=== PATIENT | female | born 1935 | race Caucasian/White ===

== ENCOUNTER 2024-06-25 11:41 | Inpatient (IN) | payer MEDICARE, OTHER, SELFPAY ==
[2024-06-25] VITALS (23 sets, daily range): BP systolic 124–216; BP diastolic 54–115
[2024-06-25 04:33] LABS: % Basophils 0.4 % (0-2); % Eosinophils 2.1 % (0-6); % Immature Granulocytes 1.4 % (0-0.5); % Lymphocytes 12.8 % (20.5-51.1); % Monocytes 6.9 % (1.7-9.3); % Neutrophils 76.4 % (42.2-75.2); Absolute Eosinophils 0.2 10^3/uL (0-0.7); Absolute Immature Granulocytes 0.1 10^3/uL (0-0.05); Absolute Lymphocytes 1.3 10^3/uL (1.2-3.4); Absolute Monocytes 0.7 10^3/uL (0.1-0.6); Absolute Neutrophils 7.5 10^3/uL (1.4-6.5); Hematocrit 35.3 % (37.0-47.0); Hemoglobin 11.5 g/dL (12.0-16.0); Mean Corp Hgb Conc. 32.6 g/dL (33.0-37.0); Mean Corpuscular Hgb 29.4 pg (27.0-31.0); Mean Corpuscular Volume 90.3 fL (81.0-99.0); Mean Platelet Volume 8.9 fL (7.4-10.4); Nucleated Red Blood Cells % 0.2 %; Platelet Count 326 10^3/uL (130-400); Red Blood Cell Count 3.91 10^6/uL (4.20-5.40); Red Cell Dist. Width 15.9 % (11.5-14.5); White Blood Cell Count 9.8 10^3/uL (4.8-10.8)
[2024-06-25 04:58] LABS: COVID-19 Antigen Negative (Negative)
[2024-06-25 05:16] LABS: ALT (SGPT) 18 U/L (0-35); Albumin 3.8 g/dl (3.5-5.0); Blood Urea Nitrogen 25 mg/dl (7-17); Calcium 9.2 mg/dl (8.4-10.2); Carbon Dioxide 28 mmol/L (22-30); Chloride 96 mmol/L (98-107); Glucose 216 mg/dl (70-99); Sodium 135 mmol/L (135-145); Total Protein 6.8 g/dl (6.3-8.2); eGFR > 60.00
[2024-06-25 05:27] LABS: AST (SGOT) 30 U/L (14-36); Potassium 4.5 mmol/L (3.5-5.1)
[2024-06-25] MEDS: VAPONEFRIN NEBS 0.5 ML INH (05:42)
[2024-06-25 07:13] LABS: Alkaline Phosphatase 118 U/L (38-126)
--- NOTE | 2024-06-25 07:38 | ED.GENMED ---
History of Present Illness
<Mauro Almonte PA-C - Last Filed: 06/25/24 10:37>
General
Chief Complaint: Breathing Problem
Source: patient and family
Time Seen by Provider: 06/25/24 07:10
History of Present Illness
History of Present Illness:
89-year-old Swedish-speaking female with a past medical history of recent hospitalization for right shoulder dislocation/proximal humerus fracture, subsequently developed supposes respiratory failure requiring intubation for 2 days, extubated and
remained in hospital for an additional 3 days, recently disposition to [facility] rehab facility who developed gradually worsening shortness of breath since Tuesday presenting back to the emergency department here due to the shortness of breath.
Patient has a noted chronic history for hypertension, hyperlipidemia, previous LA, insulin-dependent diabetes, previous cancer history and previous pulmonary emboli (daughter unsure of current medications or if anticoagulated). Patient notes that
she has had a harder time swallowing, tolerating p.o. and has gotten worsening shortness of breath and left-sided throat pain since Tuesday. No medications provided. EMS noted stridor upon their arrival and patient was also reportedly hypoxic.
Normally does not require any oxygen. Daughter who is translating in the room states that she was very confused as to why patient needed to be intubated in the first place at the other facility and states that patient had a workup for seizures but
this was reportedly negative. There have not been any reported fevers, GI related illness or any other concerns.
Past History
<Mauro Almonte PA-C - Last Filed: 06/25/24 10:37>
Past History
ED Past Medical History: CAD, Cancer, GERD, HTN, Hypercholesterolemia, IDDM, LA, Hypothyroidism and Other (Pulmonary embolism)
ED Past Surgical History: None
Social History
Tobacco: Former smoker
Alcohol: None
Drug: None
Living: with family
Review of Systems
<Mauro Almonte PA-C - Last Filed: 06/25/24 10:37>
Review of Systems
All Other Systems: ROS reviewed and negative except as documented in HPI and ROS
Phy Exam
<Mauro Almonte PA-C - Last Filed: 06/25/24 10:37>
Physical Exam
Physical Exam:
GENERAL: Alert , in no apparent distress
HEAD: Normocephalic atraumatic
EYE: Clear conjunctiva
NECK: Supple, no significant adenopathy, No ecchymosis, no obvious edema
ENT: o/p clr, dry mucous membranes very faint thrush within the posterior oropharynx, no tonsillar edema or exudates, no lymphadenopathy, inspiratory stridor noted
CARDIAC: Regular rate and rhythm .
LUNGS: Rhonchorous lung sounds more pronounced within the left posterior lung escalona, no tachypnea, no accessory muscle use
ABDOMEN: Soft, without focal tenderness, no r/g, no cvat
NEUROLOGICAL: Alert and oriented
SKIN: Warm and dry, skin intact.
MUSCULOSKELETAL: No edema, well perfused.
PSYCH: Normal and appropriate interaction.
Scores
<Mauro Almonte PA-C - Last Filed: 06/25/24 10:37>
Heart Failure Risk
Heart Failure Risk Score: Not Applicable
Heart Score for Chest Pain Patients
STEMI patient?: Not applicable
Withdrawal Assessment of Alcohol
Withdrawal Assessment Completed?: Not applicable
Sepsis
<Mauro Almotne PA-C - Last Filed: 06/25/24 10:37>
Sepsis Screening
Sepsis Assessment: Sepsis Ruled Out
Sepsis Screen
Sepsis Screen: Sepsis Ruled Out
Date: 06/25/24
Time: 10:37
<Jori Hobbs DO - Last Filed: 06/25/24 14:15>
Sepsis Screen
Sepsis Screen: Sepsis Ruled Out
Date: 06/25/24
Time: 14:14
Course
<Mauro Almonte PA-C - Last Filed: 06/25/24 10:37>
Orders/Labs/Results
Orders:
Orders
06/25/24 04:08
CR Chest Single View Urgent
Reason For Exam: suspected infection
06/25/24 04:11
COVID-19 Antigen Urgent
Source: Nasal Swab
Complete Blood Count/With Diff Urgent
Comprehensive Metabolic Panel Urgent
Influenza A+B Rapid Molecular Urgent
[facility] Source: Nasal Swab
Specimen Description:
06/25/24 05:41
Racepinephrine [Vaponefrin Nebs] 0.5 ml .ROUTE .STK-MED ONE
06/25/24 05:42
Racepinephrine [Vaponefrin Nebs] 0.5 ml INH R NOW STA
06/25/24 06:23
Tramadol HCl [Ultram] 50 mg PO NOW STA
06/25/24 07:35
Dexamethasone Sod Phosphate [Decadron] 10 mg IV NOW STA
LevoFLOXacin 750 MG/150 ML [Levaquin] 750 mg in 150 ml IV NOW
Piperacillin/Tazo 4.5 Gram [Zosyn] 4.5 gram in 100 ml IV NOW
06/25/24 07:37
Electrocardiogram (*1) Urgent
Reason for Study: Shortness of Breath
EKG- Treatment ONCE
06/25/24 08:38
Lorazepam [Ativan] 1 mg .ROUTE .STK-MED ONE
06/25/24 08:45
Racepinephrine [Vaponefrin Nebs] 0.5 ml .ROUTE .STK-MED ONE
06/25/24 09:15
NT-proBNP Urgent
Troponin I Urgent
06/25/24 10:01
Vancomycin [Vancocin] 2,000 mg 0.9% Sodium Chloride 500 ml [Nss] 500 ml IV NOW
06/25/24 10:11
Morphine Sulfate 2 mg IV NOW STA
06/25/24 10:44
Admit/Transfer Patient As Directed
Co-Sign Provider:
Level of Care: Inpatient admission
Assign to:: ICU
Physician / Group: Hospitalist
Diagnosis: Stridor
Reason for Hospitalization: .
Expected length of stay greater than two midnights?: Yes
ELOS- Estimated Length of Stay in days: 3
I certify the patient meets the requirements for IP care: Yes
PRN Pain Medication Management As Directed
May give lesser potent ordered pain med per pt: Yes
preference::
Protocol:: Medication orders for pain may be administered in a
manner that supports deferring to patient preference
when the pt is:
- Requesting an ordered lesser potent pain medication.
Least to most potent pain medications are defined
as: acetaminophen < NSAID < tramadol < opioids
(morphine, oxycodone, hydromorphone).
- Requesting a lesser dose of the same medication IF
ORDERED.
- Requesting a less intrusive route of administration
if both routes are prescribed by the provider (PO <
IV).
06/25/24 10:50
CT Chest W/o Iv Contrast Stat
Comment:
Reason For Exam: respirtaory distress
CT Neck W/o Iv Contrast Stat
Comment:
Reason For Exam: stridor
06/25/24 11:39
Diphenhydramine [Benadryl] 12.5 mg IV NOW STA
06/25/24 12:25
Consult ENT [ENT CONSULT] Routine
Consulting Provider: Felipe Padilla
Was physician already notified: Yes
Reason for Consult: Stridor
Consult Infectious Disease [INFECTIOUS DISEASE CONSULT] Routine
Consulting Provider: Narda Thorne
Was physician already notified: Yes
Reason for consult: Acute Laryngitis
Consult Pulmonary [PULMONARY CONSULT] Routine
Consulting Provider: Harley Milian
Was physician already notified: Yes
Reason for consult: Respiratory distress
06/25/24 20:00
Apixaban [Eliquis] 10 mg PO BID
Abnormal Lab Results
06/25/24
04:11
RBC 3.91 L 10^6/uL
(4.20-5.40)
Hgb 11.5 L g/dL
(12.0-16.0)
Hct 35.3 L %
(37.0-47.0)
MCHC 32.6 L g/dL
(33.0-37.0)
RDW 15.9 H %
(11.5-14.5)
Abs Immat Gran (auto) 0.1 H 10^3/uL
(0-0.05)
Absolute Neuts (auto) 7.5 H 10^3/uL
(1.4-6.5)
Absolute Monos (auto) 0.7 H 10^3/uL
(0.1-0.6)
Immature Gran % 1.4 H %
(0-0.5)
Neutrophils % 76.4 H %
(42.2-75.2)
Lymphocytes % 12.8 L %
(20.5-51.1)
Chloride 96 L mmol/L
(98-107)
BUN 25 H mg/dl
(7-17)
Glucose 216 H mg/dl
(70-99)
Total Bilirubin 2.0 H mg/dl
(0.2-1.3)
06/25/24 04:11
06/25/24 04:11
Vital Signs
Initial and Last Documented VS:
Initial Vital Signs
Temp Pulse Resp BP Pulse Ox
97.7 F 71 20 180/73 95
06/25/24 03:47 06/25/24 03:47 06/25/24 03:47 06/25/24 03:47 06/25/24 03:47
Last Documented Vital Signs
Temp Pulse Resp BP Pulse Ox
97.7 F 86 20 189/83 99
06/25/24 03:47 06/25/24 13:30 06/25/24 13:30 06/25/24 13:25 06/25/24 13:30
Exchange Teller consulted with Physician
Exchange Teller consulted with physician?: Yes
Name of Physician Consulted: Faby
<Jori Hobbs, DO - Last Filed: 06/25/24 14:15>
Orders/Labs/Results
Orders:
Orders
06/25/24 04:08
CR Chest Single View Urgent
Reason For Exam: suspected infection
06/25/24 04:11
COVID-19 Antigen Urgent
Source: Nasal Swab
Complete Blood Count/With Diff Urgent
Comprehensive Metabolic Panel Urgent
Influenza A+B Rapid Molecular Urgent
[facility] Source: Nasal Swab
Specimen Description:
06/25/24 05:41
Racepinephrine [Vaponefrin Nebs] 0.5 ml .ROUTE .STK-MED ONE
06/25/24 05:42
Racepinephrine [Vaponefrin Nebs] 0.5 ml INH R NOW STA
06/25/24 06:23
Tramadol HCl [Ultram] 50 mg PO NOW STA
06/25/24 07:35
Dexamethasone Sod Phosphate [Decadron] 10 mg IV NOW STA
LevoFLOXacin 750 MG/150 ML [Levaquin] 750 mg in 150 ml IV NOW
Piperacillin/Tazo 4.5 Gram [Zosyn] 4.5 gram in 100 ml IV NOW
06/25/24 07:37
Electrocardiogram (*1) Urgent
Reason for Study: Shortness of Breath
EKG- Treatment ONCE
06/25/24 08:38
Lorazepam [Ativan] 1 mg .ROUTE .STK-MED ONE
06/25/24 08:45
Racepinephrine [Vaponefrin Nebs] 0.5 ml .ROUTE .STK-MED ONE
06/25/24 09:15
NT-proBNP Urgent
Troponin I Urgent
06/25/24 10:01
Vancomycin [Vancocin] 2,000 mg 0.9% Sodium Chloride 500 ml [Nss] 500 ml IV NOW
06/25/24 10:11
Morphine Sulfate 2 mg IV NOW STA
06/25/24 10:44
Admit/Transfer Patient As Directed
Co-Sign Provider:
Level of Care: Inpatient admission
Assign to:: ICU
Physician / Group: Hospitalist
Diagnosis: Stridor
Reason for Hospitalization: .
Expected length of stay greater than two midnights?: Yes
ELOS- Estimated Length of Stay in days: 3
I certify the patient meets the requirements for IP care: Yes
PRN Pain Medication Management As Directed
May give lesser potent ordered pain med per pt: Yes
preference::
Protocol:: Medication orders for pain may be administered in a
manner that supports deferring to patient preference
when the pt is:
- Requesting an ordered lesser potent pain medication.
Least to most potent pain medications are defined
as: acetaminophen < NSAID < tramadol < opioids
(morphine, oxycodone, hydromorphone).
- Requesting a lesser dose of the same medication IF
ORDERED.
- Requesting a less intrusive route of administration
if both routes are prescribed by the provider (PO <
IV).
06/25/24 10:50
CT Chest W/o Iv Contrast Stat
Comment:
Reason For Exam: respirtaory distress
CT Neck W/o Iv Contrast Stat
Comment:
Reason For Exam: stridor
06/25/24 11:39
Diphenhydramine [Benadryl] 12.5 mg IV NOW STA
06/25/24 12:25
Consult ENT [ENT CONSULT] Routine
Consulting Provider: Felipe Padilla
Was physician already notified: Yes
Reason for Consult: Stridor
Consult Infectious Disease [INFECTIOUS DISEASE CONSULT] Routine
Consulting Provider: Narda Thorne
Was physician already notified: Yes
Reason for consult: Acute Laryngitis
Consult Pulmonary [PULMONARY CONSULT] Routine
Consulting Provider: Harley Milian
Was physician already notified: Yes
Reason for consult: Respiratory distress
06/25/24 20:00
Apixaban [Eliquis] 10 mg PO BID
Abnormal Lab Results
06/25/24
04:11
RBC 3.91 L 10^6/uL
(4.20-5.40)
Hgb 11.5 L g/dL
(12.0-16.0)
Hct 35.3 L %
(37.0-47.0)
MCHC 32.6 L g/dL
(33.0-37.0)
RDW 15.9 H %
(11.5-14.5)
Abs Immat Gran (auto) 0.1 H 10^3/uL
(0-0.05)
Absolute Neuts (auto) 7.5 H 10^3/uL
(1.4-6.5)
Absolute Monos (auto) 0.7 H 10^3/uL
(0.1-0.6)
Immature Gran % 1.4 H %
(0-0.5)
Neutrophils % 76.4 H %
(42.2-75.2)
Lymphocytes % 12.8 L %
(20.5-51.1)
Chloride 96 L mmol/L
(98-107)
BUN 25 H mg/dl
(7-17)
Glucose 216 H mg/dl
(70-99)
Total Bilirubin 2.0 H mg/dl
(0.2-1.3)
06/25/24 04:11
06/25/24 04:11
Vital Signs
Initial and Last Documented VS:
Initial Vital Signs
Temp Pulse Resp BP Pulse Ox
97.7 F 71 20 180/73 95
06/25/24 03:47 06/25/24 03:47 06/25/24 03:47 06/25/24 03:47 06/25/24 03:47
Last Documented Vital Signs
Temp Pulse Resp BP Pulse Ox
97.7 F 86 20 189/83 99
06/25/24 03:47 06/25/24 13:30 06/25/24 13:30 06/25/24 13:25 06/25/24 13:30
<Mauro Almonte PA-C - Last Filed: 06/25/24 10:37>
MDM/Problems Addressed
Differential Diagnosis Includes:
epiglottitis, vocal cord paralysis, pneumonia, aspiration, PE, CHF, less concern for LA or vasculopath related complication
MDM/Problems Addressed:
89-year-old female presenting to the emergency department for evaluation of respiratory difficulties over the last 3 days, had a complicated hospitalization 2 weeks ago with patient ending up intubated however unclear etiology for reasoning for the
intubation. Reportedly self extubated, hoarse voice since that time. Daughter notes patient has been on a pur�ed diet but having some difficulty with this due to the pain/difficulty swallowing. Stridor noted on exam, treated with racemic epi with
some improvement but stridor still noted. Will treat with 10 of Decadron. Labs and x-ray imaging ordered. X-ray does show possible infiltrate versus effusion within the left lower lung. Will cover for hospital-acquired pneumonia given recent
hospitalization/intubation. Troponin and BNP added onto workup. Patient currently on 3 L nasal cannula due to her hypoxia. She will certainly require readmission here for further workup/evaluation
Chronic conditions affecting care: CAD
<Mauro Almonte PA-C - Last Filed: 06/25/24 10:37>
*Radiology
Radiology exam reviewed: preliminary read by ED provider (Left lower lung effusion)
*Pulse Oximetry
Patient hypoxic: yes
*Oxygen Furnace Operator Interpretation
Rate: normal
Rhythm: sinus
*Critical Care Note
Total Time (30-74mins, 75-104mins- exclusive of procedures): Not Applicable
Data Reviewed
Review of Other/Old Records Reveals: Records
<Mauro Almonte PA-C - Last Filed: 06/25/24 10:37>
Patient Management
Discussion with other providers: Hospitalist
Escalation/DeEscalation of care consider admission/obs:
Hospitalist team accepts patient for continued evaluation and treatment of respiratory distress, suspected complications from recent intubation and pneumonia.
ED Attending Note
<Mauro Almonte PA-C - Last Filed: 06/25/24 10:37>
-
Portions of this chart may have been created with voice recognition software.� Occasional wrong word or��sound alike� substitutions may have occurred due to the inherent limitations of voice recognition software.
<Jori Hobbs DO - Last Filed: 06/25/24 14:15>
ED Attending Note
Patient seen and examined by attending physician: Yes
ED Attending Note:
I reviewed and agree with history treatment plan by Manny Almonte. My exam revealed a 89-year-old female in intermittent respiratory distress, improved with oxygen and repositioning as well as suctioning. Concern for pneumonia, will admit to
hospitalist for further evaluation.
Discharge Plan
Departure
Patient Disposition: Admit
Date of Disposition: 06/25/24
Time of Disposition: 09:18
Presentation/result/management discussed w/ accepting MD/DO: Hospitalist
Discharge Problem:
Acute respiratory distress, Pneumonia
Interventions
Interventions:
*Risk Screen - Suicide Last Done: 06/25/24 04:00
*General Assessment Last Done: 06/25/24 04:00
*Neglect/Abuse Screening Last Done: 06/25/24 04:00
ED- Fall Risk Assessment Last Done: 06/25/24 09:00
*ED COVID-19 Vaccine History Last Done: 06/25/24 13:34
ED- Cardiac Assessment Last Done: 06/25/24 09:00
ED- Pulmonary Assessment Last Done: 06/25/24 09:00
[2024-06-25] MEDS: DECADRON 10 MG IV (09:05)
[2024-06-25] MEDS: ZOSYN 100 IV (09:25)
--- NOTE | 2024-06-25 09:50 | HPS.HSE ---
Family Physician
-
Family Physician: Son Tovar MD
Chief Complaint
-
Shortness of breath for a few days duration
History of Present Illness
89 [facility] experienced shortness of breath for a few days. History taken from the family as patient speaks very limited Slovak. Patient started to have sore throat few days
ago. She was given supportive care but did not improve. EMT personnel's were called and was given inhalation therapy in the ER she was given. Intravenous dexamethasone, IV antibiotics, Racepinephrine inhalation. Patient continued to have sore
throat and not breathing well. Chest radiography did not show definitive infiltrate. No leukocytosis. No fever.
History of recent hospitalization at [facility] for shoulder dislocation/proximal humerus fracture. Reportedly, she was intubated for 2 days. Per daughter felt that her mother was having a panic attack but was told she had
respiratory distress. No history of asthma, tobacco use, sleep apnea. Patient lived independently at home before the incidence.
Medical History
Past Medical History
Past Medical History: Reports Other (Hypertension, hyperlipidemia, diabetes, gout, history of pulmonary embolism, hypothyroidism)
Past Surgical History: Reports Other (No recent major surgery )
Social History
Tobacco: Non-smoker
Alcohol: None
Drug: None
Personal: Single
Living: Alone
Employment: Not Employed
Family History
Family History: Not pertinent
Allergies / Home Medications
Allergies reflects when Allergies were last updated in [employer].
Home Medications with original date entered in [employer]
Allergy/Medication List:
Allergies
Allergy/AdvReac Type Severity Reaction Status Date / Time
clopidogrel [From Plavix] Allergy Unknown Unknown Verified 06/25/24 04:06
Iodinated Contrast Media Allergy Unknown Unknown Verified 06/25/24 04:06
metronidazole Allergy Unknown Unknown Verified 06/25/24 04:06
morphine Allergy itching Verified 06/25/24 11:46
and
reddness,
slight
shortness
of breath
Home Medications
acetaminophen 325 mg tablet (Tylenol) 650 mg PO Q6H PRN temp>100.4, mild pain 06/25/24
albuterol sulfate 2.5 mg/3 mL (0.083 %) solution for nebulization 2.5 mg inhalation Q6H wheezing 06/25/24
albuterol sulfate 2.5 mg/3 mL (0.083 %) solution for nebulization 2.5 mg inhalation QID 06/25/24
apixaban 5 mg tablet (Eliquis) See Rx Instructions .Route .COMPLEX pulm embolism 06/25/24
atorvastatin 80 mg tablet 80 mg PO HS 06/25/24
bisacodyl 10 mg rectal suppository 10 mg VT DAILY PRN constipation, if MOM ineffective 06/25/24
buspirone 5 mg tablet 5 mg PO DAILY 06/25/24
cholecalciferol (vitamin D3) 125 mcg (5,000 unit) capsule 125 mcg PO DAILY 06/25/24
clotrimazole-betamethasone 1 %-0.05 % topical cream 1 applic topical BID affected area 06/25/24
dexlansoprazole 30 mg capsule,biphase delayed release 60 mg PO DAILY 06/25/24
insulin glargine 100 unit/mL (3 mL) subcutaneous pen (Lantus Solostar U-100 Insulin) 20 unit SC HS 06/25/24
insulin lispro 100 unit/mL subcutaneous pen 0 - 10 unit SC .SLIDING SCALE AC 06/25/24
insulin lispro 100 unit/mL subcutaneous pen 3 unit SC AC 06/25/24
levetiracetam 250 mg tablet 250 mg PO BID seizure prevention 06/25/24
levothyroxine 88 mcg tablet 88 mcg PO DAILY 06/25/24
magnesium hydroxide 400 mg/5 mL oral suspension (Milk of Magnesia) 2,400 mg PO HSPRN PRN no BM x 3 days 06/25/24
meclizine 12.5 mg tablet 12.5 mg PO DAILYPRN PRN dizzyness 06/25/24
melatonin 5 mg tablet 5 mg PO HS 06/25/24
metoprolol tartrate 50 mg tablet 50 mg PO BID 06/25/24
montelukast 10 mg tablet 10 mg PO DAILY 06/25/24
polyethylene glycol 3350 17 gram oral powder packet (Miralax) 17 g PO DAILY Constipation 06/25/24
sennosides 8.6 mg tablet (Senokot) 17.2 mg PO HS 06/25/24
sodium chloride 0.65 % nasal spray aerosol 2 spray intranasal Q2H PRN congestion 06/25/24
ticagrelor 90 mg tablet (Brilinta) 90 mg PO BID Blood Clot Prevention/Tx 06/25/24
tramadol 50 mg tablet 50 mg PO Q6HPRN PRN severe pain 06/25/24
Review of Systems
-
History Source: Patient
A 12 point ROS was completed and negative except as noted: Yes
Constitutional: Denies Fever
EENT: Reports Sore Throat
Respiratory: Reports Trouble Breathing; Denies Cough
Cardiac: Denies Chest Pain
Abdomen/GI: Denies Abdominal Pain
Musculoskeletal: Reports Joint Pain (Right shoulder)
Skin: Denies Itching
Neurological: Denies Numbness
Hematologic/Lymphatic: Denies Bruising
Psych: Denies Dementia
Physical Exam
Vital Signs
Vital Signs
Temp Pulse Resp BP Pulse Ox
97.7 F 89 30 172/60 96
06/25/24 03:47 06/25/24 08:00 06/25/24 08:00 06/25/24 07:00 06/25/24 08:00
Physical Exam
General: Respiratory Distress (Stridor heard ) and Obese
HEENT: Moist mucous membranes and Atraumatic
Respiratory: Decreased Breath Sounds
Cardiac: S1/S2
GI: Soft and Non Tender
Rectal: No Maroon Stools
Genito-urinary: Clear Urine
Musculoskeletal: No Cyanosis
Skin: No Jaundice
Neuro: Oriented and Other (She follows simple commands)
Psych: Anxious; No Agitated
Laboratory Results
-
06/25/24 04:11
06/25/24 04:11
Laboratory Results
Total Bilirubin 2.0 mg/dl (0.2-1.3) H 06/25/24 04:11
AST 30 U/L (14-36) 06/25/24 04:11
ALT 18 U/L (0-35) 06/25/24 04:11
Alkaline Phosphatase 118 U/L (38-126) 06/25/24 04:11
Impression/Plan
-
89 years old female presented with sore throat and respiratory distress
#Sore throat/suspect acute laryngitis/stridor/respiratory distress
Currently patient is not hypoxic. But she seems uncomfortable from sore throat. She described as trouble breathing at times. She is not tachypneic or using accessory muscle at the moment.
Admit the patient to ICU
Recent respiratory distress that needed intubation in another facility and extubated after 2 days. Currently on room air.
Negative COVID and influenza screen, cannot rule out other viral infection
Chest radiography did not show definitive infiltrate.
Order CT scan of the chest and neck without contrast, patient is allergic to contrast
Continue with IV steroid, low-dose Benadryl
Discussed with ICU doctor.
Consult ENT doctor.
Empiric antibiotics.
Consult ID.
# history of diabetes.
Expect hyperglycemia with a steroid and stress related to acute illness
Do insulin sliding scale and long-acting insulin.
#History of essential hypertension
Continue medications from home, will verify with pharmacy.
# History of hypothyroidism,
#Recent right shoulder injury/humeral fracture. Will do x-ray
# Patient seems to be on Keppra, will continue and verify medical history.
# History of pulmonary embolism. will continue Eliquis for now
# Hyperlipidemia, no changes intended
#Obesity,
#DVT prophylaxis with GI prophylaxis
# Try to get records from her primary care doctor and recent hospitalization
Total time spent to see the patient, examine the patient, review data and lab results, discuss treatment plan with patient, ER doctor and nursing staff around 75 minutes
[2024-06-25 09:51] LABS: NT-proBNP 4230 pg/ml; Troponin I 0.024 ng/ml
[2024-06-25] MEDS: MORPHINE SULFATE IV (10:27)
--- NOTE | 2024-06-25 10:34 | PHANOTE ---
Med History Collection
Patient was hospitalized at [facility] and then transferred to [facility]. Many changes to Medication List from prior hospitalization to SNF. SNF list is up to date on Med List.
Prior medications include:
allopurinol 100 mg 2 PO daily
colchicine 0.6 mg po daily
Creon 24,000 unit po meals
Diltiazem ER 240 mg po daily
Dozazolin 4 mg po daily
gabapentin 100mg po 3xdaily
levocetirizine 5 mg po daily
levothyroxin 100mcg po daily ([address] [facility])
mag ox 400 mg po 3x/daily
metformin ER 500 mg po bid
metoprolol succ ER 100 mg po dailu (metop tartrate 50 [address] [facility])
mirtazapine 15 mg po daily
nitroglycerin TD 0.1 mg/hr patch daily
pantoprazole 40 mg pO daily (dexilant 60 [address] [facility])
triamterene /HCTZ 37.5/25 mg PO daily
valsartan 80 mg PO BID
zolpidem 10 mg po HS
[2024-06-25] MEDS: LEVAQUIN 150 IV (11:08)
[2024-06-25] MEDS: MORPHINE SULFATE 2 MG IV (11:14)
[2024-06-25] MEDS: BENADRYL 12.5 MG IV (11:43)
--- NOTE | 2024-06-25 12:57 | W.CON.OTO ---
Otolaryngology Consult
Chief Complaint
Stridor and shortness of breath
History of Present Illness
Patient is an 89-year-old female recently treated at [facility] for a fractured right humerus. During this workup the patient may have had a seizure versus a panic attack. She was intubated in the ER at [facility] and left
intubated for several days while they stabilized her. Approximately 9 days ago the patient self extubated at [facility]. She was not reintubated after that point in time. She was, however, transferred to a rehab facility last .
On Tuesday she had some labored breathing noted by her daughter. This worsened on Tuesday. This morning she was taken to [facility] for some stridor and difficulty breathing. In the emergency room she was noted to have decreased oxygen
saturations. She was treated with Decadron and racemic epi and improved. Currently she is breathing comfortably with noticeable improvement following the medication. She has had some hoarseness. The patient has also had some mild dysphagia.
While at [facility] she did have a workup and was placed on a modified pur�ed diet. This has some thick phlegm that she seems to be unable to clear. The daughter does not think the patient has been sick recently with any upper
respiratory illness. The patient does not speak Hungarian and the interview was conducted via translation provided by the daughter.
Medical History
Past Medical History: CAD, Cancer, GERD, HTN, Hypercholesterolemia, IDDM, [place] and Other (PE, Right Humerus Fx)
Past Surgical History: Orthopedic (Right humerus ORIF)
Patient Allergies:
Allergies
Allergy/AdvReac Type Severity Reaction Status Date / Time
clopidogrel [From Plavix] Allergy Unknown Unknown Verified 06/25/24 04:06
Iodinated Contrast Media Allergy Unknown Unknown Verified 06/25/24 04:06
metronidazole Allergy Unknown Unknown Verified 06/25/24 04:06
morphine Allergy itching Verified 06/25/24 11:46
and
reddness,
slight
shortness
of breath
Home Medications / Current Medications:
�Medication �Instructions �Recorded
acetaminophen 325 mg tablet 650 mg PO Q6H PRN temp>100.4, mild 06/25/24
(Tylenol) pain
albuterol sulfate 2.5 mg/3 mL 2.5 mg inhalation Q6H wheezing 06/25/24
(0.083 %) solution for nebulization
albuterol sulfate 2.5 mg/3 mL 2.5 mg inhalation QID 06/25/24
(0.083 %) solution for nebulization
apixaban 5 mg tablet (Eliquis) See Rx Instructions .Route 06/25/24
.COMPLEX pulm embolism
atorvastatin 80 mg tablet 80 mg PO HS 06/25/24
bisacodyl 10 mg rectal suppository [address] DAILY PRN constipation, 06/25/24
if MOM ineffective
buspirone 5 mg tablet 5 mg PO DAILY 06/25/24
cholecalciferol (vitamin D3) 125 125 mcg PO DAILY 06/25/24
mcg (5,000 unit) capsule
clotrimazole-betamethasone 1 1 applic topical BID affected area 06/25/24
%-0.05 % topical cream
dexlansoprazole 30 mg 60 mg PO DAILY 06/25/24
capsule,biphase delayed release
insulin glargine 100 unit/mL (3 20 unit SC HS 06/25/24
mL) subcutaneous pen (Lantus
Solostar U-100 Insulin)
insulin lispro 100 unit/mL 0 - 10 unit SC .SLIDING SCALE AC 06/25/24
subcutaneous pen
insulin lispro 100 unit/mL 3 unit SC AC 06/25/24
subcutaneous pen
levetiracetam 250 mg tablet 250 mg PO BID seizure prevention 06/25/24
levothyroxine 88 mcg tablet 88 mcg PO DAILY 06/25/24
magnesium hydroxide 400 mg/5 mL 2,400 mg PO HSPRN PRN no BM x 3 06/25/24
oral suspension (Milk of Magnesia) days
meclizine 12.5 mg tablet 12.5 mg PO DAILYPRN PRN dizzyness 06/25/24
melatonin 5 mg tablet 5 mg PO HS 06/25/24
metoprolol tartrate 50 mg tablet 50 mg PO BID 06/25/24
montelukast 10 mg tablet 10 mg PO DAILY 06/25/24
polyethylene glycol 3350 17 gram 17 g PO DAILY Constipation 06/25/24
oral powder packet (Miralax)
sennosides 8.6 mg tablet (Senokot) 17.2 mg PO HS 06/25/24
sodium chloride 0.65 % nasal spray 2 spray intranasal Q2H PRN 06/25/24
aerosol congestion
ticagrelor 90 mg tablet (Brilinta) 90 mg PO BID Blood Clot 06/25/24
Prevention/Tx
tramadol 50 mg tablet 50 mg PO Q6HPRN PRN severe pain 06/25/24
Physical Exam
Vitals / Labs:
Vital Signs
Temp 97.7 F 06/25/24 03:47
Temp route: Oral 06/25/24 03:47
Pulse 89 06/25/24 08:00
Resp Rate 30 06/25/24 08:00
Blood pressure 172/60 06/25/24 07:00
MAP (cuff-Brenda Monitor) 92 06/25/24 07:00
SaO2 96 06/25/24 08:00
Oxygen Mode of Delivery Room air 06/25/24 04:00
Can the patient verbally communicate their pain? Yes 06/25/24 11:14
Pain scale ratin 06/25/24 11:14
Actual Weight 113.398 kg 06/25/24 04:07
Lab Results
06/25/24 04:11
06/25/24 04:11
Exam:
GENERAL: Alert , in no apparent distress
HEAD: Normocephalic atraumatic
EYE: Clear conjunctiva
NECK: Supple, no significant adenopathy, No ecchymosis, no obvious edema
ENT: dry mucous membranes with moderate thick secretions present, no significant erythema or edema noted in oropharynx, no masses present
Flexible fiberoptic laryngoscopy: Flexible scope performed at the bedside without any difficulty. Scope easily passed through the nasal cavity on the left side nasopharynx clear. Oropharynx unremarkable. Moderate thick secretions present in the
larynx, posteriorly on left side. Mucosa within normal limits diffusely throughout the upper aerodigestive tract. Vallecula, epiglottis, aryepiglottic folds, arytenoids, postcricoid area clear. True and false vocal folds unremarkable without any
mass or neoplasm present. Subglottis difficult to visualize but appeared grossly clear.
Assessment / Plan
89-year-old female with acute onset of stridor and respiratory distress.
-Patient self extubated 8 days ago at [facility].
-There is no evidence of upper airway trauma from the self extubation.
-No significant evidence of upper airway edema or mass present.
-The airway is patent on fiberoptic examination at the bedside.
-The patient does have thick secretions that she may be having difficulty tolerating.
-Recommend facemask with humidification to help loosen the secretions and alleviate the patient's dry mucous membranes.
-Continue Decadron as per medical team, can continue racemic epi as needed.
-Pulmonary input appreciated, possible pneumonia, starting IV antibiotics.
Data Reviewed
Radiology: Report Reviewed by me (CXR)
CT Scan: Image Personally Visualized and interpreted (I did review the CT of neck. The airway appears to be relatively clear without any masses or significant edema noted. The remainder of the neck was within normal limits.)
[2024-06-25] MEDS: VANCOCIN 540 MG IV (13:41)
--- NOTE | 2024-06-25 14:25 | CON.INTV ---
Addendum entered and electronically signed by Harley Milian MD 06/25/24 18:02:
During my evaluation in the emergency room I did discuss with the daughter potential intubation.
Daughter stated that she would not want intubation or CPR for her mother.
I will confirm this again and update CODE STATUS.
Addendum entered and electronically signed by Harley Milian MD 06/25/24 18:01:
See below
Original Note:
Consultation
Consultation Request
Date/Time Consultation Requested: 06/25/2024,12:25
Date/Time Consultation Performed: 06/25/2024,15:00
Requesting Provider: Lesley Pérez
Performing Provider: Harley Milian
Reason for Consultation: Respiratory distress
Medical History
-
Chief Complaint: Shortness of breath
History of Present Illness:
Patient is an 89-year-old, morbidly obese, primarily Turkish-speaking female with her grandson Bk present on the bedside. Patient was not able to provide history so primarily the history was obtained from her grandson due to language barrier. As
per the grandson, it all started about 1-1/2-week ago, she was in her usual state of health,She fell down and broke her right shoulder, she remained admitted [facility] where they were not agreeable to perform any surgical correction as they
believed that the patient was a high risk case. At 1 point she required intubation and remained intubated for about 2 days. As per the grandson she was not comfortable with the ventilator and her body was consistently fighting the mechanical
ventilation. She was eventually discharged based on stable vital signs and the family had to find themselves and [facility]. She was in [facility] rehab facility and started to feel short of breath for the last few days. She was brought to
the [facility] emergency department when the conservative measures did not help.
In the ED, patient has been hypertensive and her blood pressure has been ranging between 170-200. She denies any chest pain, any palpitations, or apprehension. EKG done in the emergency room revealed normal sinus rhythm, prolonged QT of 514
complete right block and minimal voltage criteria for left ventricular hypertrophy.
Chest x-ray done to evaluate for any acute infiltrates or fluid collections which were negative.
Patient does complain of pain in her right shoulder, and there was some swelling noted in neck and upper chest, CT chest report pending.
Past Medical History
Past Medical History: GERD, HTN, Hypercholesterolemia, Hypothyroidism, IDDM and Other (Gout, history of pulmonary embolism, seizure disorder, anxiety)
Past Surgical History: None
Social History
Tobacco: Former Smoker (Quit about 40 years ago)
Alcohol: Occasional
Drug: None
Personal: Single
Living: Alone
Employment: Not Employed
Family History
Family History: Reviewed & Not Pertinent
Allergies / Home Medications
Allergies
Allergy/AdvReac Type Severity Reaction Status Date / Time
clopidogrel [From Plavix] Allergy Unknown Unknown Verified 06/25/24 04:06
Iodinated Contrast Media Allergy Unknown Unknown Verified 06/25/24 04:06
metronidazole Allergy Unknown Unknown Verified 06/25/24 04:06
morphine Allergy itching Verified 06/25/24 11:46
and
reddness,
slight
shortness
of breath
Home Medications
�Medication �Instructions �Recorded �Confirmed �Last Taken �Type
acetaminophen 325 mg tablet 650 mg PO Q6H PRN temp>100.4, mild 06/25/24 06/25/24 Unknown History
(Tylenol) pain
albuterol sulfate 2.5 mg/3 mL 2.5 mg inhalation Q6H wheezing 06/25/24 06/25/24 Unknown History
(0.083 %) solution for nebulization
albuterol sulfate 2.5 mg/3 mL 2.5 mg inhalation QID 06/25/24 06/25/24 Unknown History
(0.083 %) solution for nebulization
apixaban 5 mg tablet (Eliquis) See Rx Instructions .Route 06/25/24 06/25/24 Unknown History
.COMPLEX pulm embolism
atorvastatin 80 mg tablet 80 mg PO HS 06/25/24 06/25/24 Unknown History
bisacodyl 10 mg rectal suppository 10 mg PA DAILY PRN constipation, 06/25/24 06/25/24 Unknown History
if MOM ineffective
buspirone 5 mg tablet 5 mg PO DAILY 06/25/24 06/25/24 Unknown History
cholecalciferol (vitamin D3) 125 125 mcg PO DAILY 06/25/24 06/25/24 Unknown History
mcg (5,000 unit) capsule
clotrimazole-betamethasone 1 1 applic topical BID affected area 06/25/24 06/25/24 Unknown History
%-0.05 % topical cream
dexlansoprazole 30 mg 60 mg PO DAILY 06/25/24 06/25/24 Unknown History
capsule,biphase delayed release
insulin glargine 100 unit/mL (3 20 unit SC HS 06/25/24 06/25/24 Unknown History
mL) subcutaneous pen (Lantus
Solostar U-100 Insulin)
insulin lispro 100 unit/mL 0 - 10 unit SC .SLIDING SCALE AC 06/25/24 06/25/24 Unknown History
subcutaneous pen
insulin lispro 100 unit/mL 3 unit SC AC 06/25/24 06/25/24 Unknown History
subcutaneous pen
levetiracetam 250 mg tablet 250 mg PO BID seizure prevention 06/25/24 06/25/24 Unknown History
levothyroxine 88 mcg tablet 88 mcg PO DAILY 06/25/24 06/25/24 Unknown History
magnesium hydroxide 400 mg/5 mL 2,400 mg PO HSPRN PRN no BM x 3 06/25/24 06/25/24 Unknown History
oral suspension (Milk of Magnesia) days
meclizine 12.5 mg tablet 12.5 mg PO DAILYPRN PRN dizzyness 06/25/24 06/25/24 Unknown History
melatonin 5 mg tablet 5 mg PO HS 06/25/24 06/25/24 Unknown History
metoprolol tartrate 50 mg tablet 50 mg PO BID 06/25/24 06/25/24 Unknown History
montelukast 10 mg tablet 10 mg PO DAILY 06/25/24 06/25/24 Unknown History
polyethylene glycol 3350 17 gram 17 g PO DAILY Constipation 06/25/24 06/25/24 Unknown History
oral powder packet (Miralax)
sennosides 8.6 mg tablet (Senokot) 17.2 mg PO HS 06/25/24 06/25/24 Unknown History
sodium chloride 0.65 % nasal spray 2 spray intranasal Q2H PRN 06/25/24 06/25/24 Unknown History
aerosol congestion
ticagrelor 90 mg tablet (Brilinta) 90 mg PO BID Blood Clot 06/25/24 06/25/24 Unknown History
Prevention/Tx
tramadol 50 mg tablet 50 mg PO Q6HPRN PRN severe pain 06/25/24 06/25/24 Unknown History
Review of Systems
-
All other systems: Negative unless noted
Vitals / Labs / Diagnostic Testing
Vital Signs
Temp Pulse Resp BP Pulse Ox
97.7 F 86 20 189/83 99
06/25/24 03:47 06/25/24 13:30 06/25/24 13:30 06/25/24 13:25 06/25/24 13:30
Lab Data
06/25/24 04:11
06/25/24 04:11
Microbiology
06/25/24 04:11 Nasal Swab Influenza Types A & B (NICOLAS) - Final
Negative for Influenza A & B, NAAT
Negative results must be combined with clinical observations
and patient history.
Nucleic Acid Amplification test (NAAT)performed on the
[employer] platform.
Diagnostic Testing:
Physical Exam
-
HEENT: Normocephalic, Anicteric and Other (Currently breathing on 2 L of oxygen)
Cardiovascular: S1/S2, Regular Rhythm and Other (No murmurs or rubs)
Respiratory: Other (Bilateral coarse rhonchi and wheezes)
GI: Soft, Distended (Abdominal obesity) and Normal Bowel Sounds
Neurology: Awake, Oriented and No Motor Deficits
Skin: Warm and Dry
General: Respiratory Distress (Breathing on 2 L of oxygen) and Other (Bruising on right shoulder)
Assessment
-
Impression
Patient is an 89-year-old female, morbidly obese, primarily Turkish-speaking, grandson Bk present on the bedside, primarily history obtained from the grandson. She was recently admitted to [facility] for her right shoulder injury, she
required intubation for respiratory decompensation as per the grandson. She was discharged to [facility] rehab where the patient started to feel short of breath for the last few days and was brought to the ER. Based on the workup in ER, her
EKG had prolonged QT interval and normal sinus rhythm. Chest x-ray was negative for any infiltrates or fluid collections, but did show a fracture on her right shoulder. CT chest was done for neck and chest swelling, report pending.
Assessment
# Hypertensive urgency
# Shortness of breath likely secondary to PE/subcutaneous emphysema/acute viral infection/complications of ventilator
# Morbid obesity
# Diabetes mellitus
# Essential hypertension
# Hyperlipidemia
# Seizure disorder?
# History of pulmonary embolism?
Plan
# Shortness of breath likely secondary to PE/subcutaneous emphysema/acute viral infection/complications of ventilator
Patient sitting comfortably, not using accessory muscles for respiration, not hypoxic, needing oxygen at 2 L/min
CT chest report pending, need to evaluate the stridor through ENT evaluation
Negative for COVID and influenza screen but could be a viral illness
Patient receiving symptomatic management in ER
Received a dose of Zosyn, Levaquin and vancomycin
WBC count normal and patient is afebrile
Follow-up blood cultures
# Morbid obesity
Affects all aspects of healthcare
# Diabetes mellitus
Started high resistance insulin sliding scale along with insulin glargine 25 units at bedtime
Continue to monitor blood sugar levels which are expected to rise as patient would be receiving high-dose steroids
Check HbA1c
# Hypertensive urgency
Patient has systolic blood pressure ranging from 170-200
Patient takes 50 mg metoprolol twice daily at home, continue home medications and give medications for breakthrough hypertension
Optimize blood pressure control,
# Hyperlipidemia
Continue home dose of atorvastatin as able
# Seizure disorder?
Continue home dose of [id number] mg twice daily
# History of pulmonary embolism?
Continue Eliquis 10 mg twice daily
Try to obtain records to further get information about the PE
CODE STATUS full code at this time
DVT prophylaxis Eliquis
[2024-06-25 15:40] LABS: Glucose - Point of Care 306 mg/dl (70-99)
[2024-06-25] MEDS: PROCARDIA XL (EXTENDED RELEASE) 30 MG PO ×2 (16:22→16:26)
[2024-06-25] MEDS: APRESOLINE 10 MG IV (16:27)
--- NOTE | 2024-06-25 16:27 | PHA.VAN.IN ---
Assessment
- Assessment
Renal Function: Unknown baseline
Concomitant Antimicrobials: piperacillin/tazobactam
Plan
- Plan
Initial / Loading Dose: vanc 2000mg administered @ 1341
Maintenance Regimen: dosing by level
Monitoring: random level 06/26 0600
MRSA Screen: Ordered per protocol
Pharmacokinetics Vancomycin I
- -
Patient Age: 89
Patient Sex: Female
Vancomycin Day #: 1
Indication: Pulmonary/Respiratory
Requesting Provider: Dr. Pérez
Pertinent Antimicrobial Allergies:
metronidazole - unknown
Height / Weight:
Actual Weight 113.398 kg
- Vital Signs / Lab Results
Temp Pulse Resp BP Pulse Ox
97.7 F 88 19 205/67 97
06/25/24 03:47 06/25/24 15:00 06/25/24 15:00 06/25/24 15:00 06/25/24 15:00
Lab Results - Hematology
06/25/24
04:11
WBC 9.8
Lab Results - Chemistry
06/25/24
04:11
BUN 25 H
Creatinine 0.9
Albumin 3.8
Microbiology Results
06/25/24 04:11 Influenza Types A & B (NICOLAS) - Final
Nasal Swab Negative for Influenza A & B, NAAT
Negative results must be combined with clinical observations
and patient history.
Nucleic Acid Amplification test (NAAT)performed on the
[employer] NOW platform.
[2024-06-25] MEDS: ULTRAM 50 MG PO (16:40)
--- NOTE | 2024-06-25 18:15 | W.PN.UPDATE ---
Update Note
Progress Note Update
I updated her daughter for second time. Pt clinically better.
I confirmed DNR status with her and will update chart
[2024-06-25] MEDS: NSS 1000 IV (18:26)
--- NOTE | 2024-06-25 18:28 | CON.ID ---
Consultation
-
Date/Time Consultation Requested: June 25, 2024 1225
Date/Time Consultation Performed: June 1830
Requesting Provider: Dr. Kati éPrez
Performing Provider: Dr. Selina Saul
Reason for Consultation: Laryngitis
Chief Complaint / Past History
Chief Complaint
Unable to breathe
History of Present Illness
History obtained from grandson at bedside. She is an 89-year-old female with diabetes, hypertension, anxiety who was recently hospitalized at [facility] about 1-1/2-week ago when she slipped on water and fell. She sustained right
shoulder/fracture. Per grandson, patient has chronic back pain often exacerbated by when she lays down flat; she tends to shake when she has back pain. While in the ER at the outside hospital, patient was shaking thought to be due to seizure.
She was intubated for about 2 days. Patient then self extubated. Since then, she had shortness of breath//respiratory distress. Her vitals were normal per grandson. About 2 days ago she was discharged to [facility] rehab. While at rehab her
respiratory distress got worse again. She had shortness of breath. EMS was called and she received steroid, racemic epinephrine enroute to the ER today. No fever. White count normal. Chest x-ray without pneumonia. She was examined by ENT
without findings of trauma; secretions noted. Chest and neck CT showed some soft tissue prominence within the laryngeal and hypopharyngeal soft tissues of the neck which may be inflammatory/infectious. Patient is feeling better today. She is not
as short of breath. She has mild cough unable to produce sputum. No chills or sweats. No sinus congestion. No headaches.
Past History
Additional Past Medical History:
Diabetes mellitus
Hypertension
HLD
Hypothyroidism
Chronic back pain
Gout
Anxiety
Recent right humerus fracture
Allergy History:
clopidogrel [From Plavix] Allergy (Unknown, Verified 06/25/24 04:06)
Unknown
Iodinated Contrast Media Allergy (Unknown, Verified 06/25/24 04:06)
Unknown
metronidazole Allergy (Unknown, Verified 06/25/24 04:06)
Unknown
morphine Allergy (Verified 06/25/24 11:46)
itching and reddness, slight shortness of breath
Medications Reviewed: Yes
Current Antibiotics:
Zosyn
Social History
Tobacco: Former Smoker
Alcohol: None
Drug: None
Living: Alone
Family History
Family History: Not Pertinent
Review of Systems
Review of Systems
General: Negative Fever, Chills or Change in Appetite
HEENT: Negative Sinus Problems or Headache
Respiratory: Dyspnea and Cough
Gasteroenterology: Negative Nausea, Vomiting or Diarrhea
Genital / Urological: Negative Dysuria or Flank Pain
Endocrine: Weakness
Skin / Hair / Nails: Negative Rash
Neurological: Negative Dizziness
All systems: All other systems were reviewed and were negative
Vital Signs
Temp Pulse Resp BP Pulse Ox
97.7 F 110 18 192/77 98
06/25/24 03:47 06/25/24 17:00 06/25/24 17:00 06/25/24 17:00 06/25/24 17:00
Physical Exam
Physical Exam
Constitutional: No Acute Distress, Comfortable and Obese
Eyes: No Conjunctival Hemorrhage and Sclera Anicteric
Pharynx: Benign
Cardiovascular: Regular Rate and S1/S2
Pulmonary: Clear and Other (Mild upper airway wheezing)
Gastrointestinal: Soft, Non Tender, Non Distended and Normal Bowel Sounds
Genito-Urinary: Negative CVA Tenderness
Extremities: Edema (RUE)
Skin: Other (Right shoulder and chest with ecchymosis)
Neurological: AO x 3
Lab / Diagnostic Study Results
06/25/24 04:11
06/25/24 04:11
Abs Immat Gran (auto) 0.1 10^3/uL (0-0.05) H 06/25/24 04:11
Absolute Neuts (auto) 7.5 10^3/uL (1.4-6.5) H 06/25/24 04:11
Absolute Lymphs (auto) 1.3 10^3/uL (1.2-3.4) 06/25/24 04:11
Absolute Monos (auto) 0.7 10^3/uL (0.1-0.6) H 06/25/24 04:11
Absolute Basos (auto) 0.0 10^3/uL (0-0.2) 06/25/24 04:11
Immature Gran % 1.4 % (0-0.5) H 06/25/24 04:11
Neutrophils % 76.4 % (42.2-75.2) H 06/25/24 04:11
Lymphocytes % 12.8 % (20.5-51.1) L 06/25/24 04:11
Monocytes % 6.9 % (1.7-9.3) 06/25/24 04:11
Eosinophils % 2.1 % (0-6) 06/25/24 04:11
Basophils % 0.4 % (0-2) 06/25/24 04:11
Microbiology Results
Micro:
06/25/24 04:11 Influenza Types A & B (NICOLAS) - Final
Nasal Swab Negative for Influenza A & B, NAAT
Negative results must be combined with clinical observations
and patient history.
Nucleic Acid Amplification test (NAAT)performed on the
[employer] NOW platform.
06/25/24 CXR: The lungs appear clear for AP sitting technique. Mild to moderate elevation right hemidiaphragm. Top normal cardiac silhouette size with no evidence for pulmonary edema.
06/25/24 CT chest, Neck CT: Overall limited evaluation without intravenous contrast demonstrating some soft tissue prominence predominantly within the laryngeal and hypopharyngeal soft tissues of the neck which may be on an inflammatory/infectious
basis. Unfortunately, soft tissue mass such as malignancy cannot be excluded. Recommend direct visualization.
Assessment / Plan
# Respiratory distress since self-extubation at outside hospital
- CT neck/chest: limited exam without contrast; there is soft tissue prominence larynx and hypopharynx
- Direct visualization by ENT, unremarkable airway except for some secretions
- Low suspicion for infectious etiology.
Narrow Zosyn to Augmentin 875mg po bid x 5 days.
- ?Allergic reaction. Is Keppra new drug. Per grandson, no hx of seizure.
SOB improved on steroid.
ID will sign off. Call prn.
# Conditions [employer]
Diabetes mellitus
Hypertension
HLD
Hypothyroidism
Chronic back pain
Gout
Anxiety
Recent right humerus fracture
[2024-06-25 18:45] LABS: Glucose - Point of Care 325 mg/dl (70-99)
[2024-06-25] MEDS: NOVOLOG FLEXPEN-HIGH RESISTANCE 10 UNITS SC (18:45)
--- NOTE | 2024-06-25 18:55 | PTCARENOTE ---
Received patient from ED after 5pm. Language line utilized as patient [place] speaking. Patient aaox3, confirms some discomfort to back and right arm r/to fx and dislocation. NSR on the monitor. SOB noted, stridor noted upper respiratory, lungs
clear to left side, right side diminished throughout. O2 sats 96-100% on 2l n/c. BS active x4. Blister noted to right heel, dressing applied. Bk Watts, present. Patient states ok to share any information with her dtr Annel. Oriented patient
and grandson to room, call beltran in reach. Report provided to next shift.
[2024-06-25] MEDS: SODIUM CHLORIDE 3% FOR INHALATION 1 VIAL INH (20:04)
[2024-06-25] MEDS: ELIQUIS 10 MG PO (20:12)
[2024-06-25] MEDS: LOPRESSOR 50 MG PO (20:13)
[2024-06-25] MEDS: AUGMENTIN 875 MG/125 MG 1 TABLET PO (20:13)
[2024-06-25] MEDS: KEPPRA 250 MG PO (20:13)
[2024-06-25 20:27] LABS: Glucose - Point of Care 284 mg/dl (70-99)
[2024-06-25] MEDS: DECADRON 4 MG IV (20:27)
[2024-06-25] MEDS: LANTUS 0.35 UNITS SC (20:53)
[2024-06-25 22:08] LABS: Glucose - Point of Care 266 mg/dl (70-99)
[2024-06-25] MEDS: NOVOLOG FLEXPEN-HIGH RESISTANCE 7 UNITS SC (23:46)
[2024-06-25 23:59] LABS: Glucose - Point of Care 260 mg/dl (70-99)
[2024-06-26] VITALS (18 sets, daily range): BP systolic 126–185; BP diastolic 44–72; PULSE 67; O2SAT 96
[2024-06-26] MEDS: APRESOLINE 5 MG IV (01:04)
[2024-06-26] MEDS: SODIUM CHLORIDE 3% FOR INHALATION 1 VIAL INH ×4 (01:27→20:22)
[2024-06-26 04:14] LABS: Vancomycin Random 16.3 ug/ml
[2024-06-26 04:17] LABS: Hematocrit 28.8 % (37.0-47.0); Hemoglobin 9.4 g/dL (12.0-16.0); Mean Corp Hgb Conc. 32.6 g/dL (33.0-37.0); Mean Corpuscular Volume 88.9 fL (81.0-99.0); Mean Platelet Volume 8.8 fL (7.4-10.4); Platelet Count 294 10^3/uL (130-400); Red Blood Cell Count 3.24 10^6/uL (4.20-5.40); Red Cell Dist. Width 15.9 % (11.5-14.5); White Blood Cell Count 6.2 10^3/uL (4.8-10.8)
[2024-06-26 04:20] LABS: ALT (SGPT) 15 U/L (0-35); AST (SGOT) 23 U/L (14-36); Albumin 3.2 g/dl (3.5-5.0); Alkaline Phosphatase 87 U/L (38-126); Blood Urea Nitrogen 40 mg/dl (7-17); Calcium 8.3 mg/dl (8.4-10.2); Carbon Dioxide 26 mmol/L (22-30); Chloride 99 mmol/L (98-107); Glucose 244 mg/dl (70-99); Potassium 4.7 mmol/L (3.5-5.1); Sodium 134 mmol/L (135-145); Total Bilirubin 1.3 mg/dl (0.2-1.3); Total Protein 5.9 g/dl (6.3-8.2); eGFR 36.41
[2024-06-26] MEDS: SYNTHROID 88 MCG PO (05:30)
[2024-06-26] MEDS: NSS 1000 IV ×2 (05:30→18:44)
[2024-06-26] MEDS: NOVOLOG FLEXPEN-HIGH RESISTANCE 4 UNITS SC ×2 (06:31→11:57)
[2024-06-26 06:44] LABS: Glucose - Point of Care 242 mg/dl (70-99)
--- NOTE | 2024-06-26 07:00 | W.PN.HOSP.TC ---
Addendum entered and electronically signed by Lesley Pérez MD 06/26/24 10:12:
Addendum
Blood work resulted
Hyponatremia, mild
Acute kidney injury. Will add bladder scan protocol. Avoid nephrotoxic. Control of blood pressure.
Essential hypertension, uncontrolled, will add nifedipine
End
Original Note:
Today's Communication/Plan
-
Will order PT/OT
c/w low dose steroid for one more day
Empiric ABx
add pre-meal insulin
Assessment / Plan
Assessment / Plan
Physical Exam
General: not in respiratory Distress, no Stridor heard, Obese
HEENT: Moist mucous membranes and Atraumatic
Respiratory: Decreased Breath Sounds, no wheezes.
Cardiac: S1/S2
GI: Soft and Non Tender
Rectal: No Maroon Stools
Genito-urinary: Clear Urine
Musculoskeletal: No Cyanosis
Skin: No Jaundice
Neuro: Oriented and Other (She follows simple commands)
Psych: Anxious; No Agitated
89 years old female presented with sore throat and respiratory distress
#History of Sore throat
Acute laryngitis
Stridor and respiratory distress seem to resolve, not hypoxic.
Negative COVID and influenza screen, cannot rule out other viral infection. Negative Legionella and Streptococcus antigens.
Chest radiography did not show definitive infiltrate.
CT scan of the chest, no pneumonia. Neck without contrast, no obstructive lesion.
Continue with IV steroid, low-dose Benadryl PRN. 3 % nasal nebulizer Q 6
Empiric antibiotics.
Appreciate ENT, pulmonary and ID help
# history of diabetes.
Expect hyperglycemia with a steroid and stress related to acute illness
Do insulin sliding scale and long-acting insulin. Add pre-meal insulin
#History of essential hypertension
Continue medications from home,
# drop in HGB, suspect dilutional.
# Gout, c/w allopurinol.
# History of hypothyroidism,
#Recent right shoulder injury/humeral fracture. c/w PRN Tramadol & Tylenol.
# Patient seems to be on Keppra. continue for now.
# History of pulmonary embolism. will continue Eliquis for now
# Hyperlipidemia, no changes intended
#Obesity,
#DVT prophylaxis with GI prophylaxis
# Try to get records from her primary care doctor and recent hospitalization
Total time spent to see the patient, examine the patient, review data and lab results, discuss treatment plan with patient and nursing staff around 55 minutes
Anticipated Discharge: 24 - 48 hours
Subjective/Interval History
-
Date of Service: June 26, 2024
she feels better
no stridor over night
Objective Data
-
Labs:
Laboratory Results
06/26/24
03:37
WBC 6.2
Hgb 9.4 L
Hct 28.8 L
Plt Count 294
Sodium 134 L
Potassium 4.7
Chloride 99
Carbon Dioxide 26
BUN 40 H
Creatinine 1.4 H
Glucose 244 H
Calcium 8.3 L
Total Bilirubin 1.3
AST 23
ALT 15
Alkaline Phosphatase 87
Vital Signs:
Vital Signs
Temp Pulse Resp BP Pulse Ox
98.1 F 58 15 155/56 98
06/26/24 03:00 06/26/24 06:00 06/26/24 06:00 06/26/24 06:00 06/26/24 06:00
[2024-06-26] MEDS: VENTOLIN NEBULES 2.5 MG INH ×2 (07:46→13:33)
--- NOTE | 2024-06-26 08:18 | W.PN.PUL3 ---
Today's Communication / Plan
-
Continue with systemic steroids and wean as she clinically improves
prn nebulized bronchodilators
Antibiotics as per ID
Nebulized 3% --> changed from q6hr to TID
Aspiration precautions
Start Mucinex
Acapella if continues to have difficulty with expectoration
Repeat imaging in 6-8 weeks to assure her groundglass opacities resolve
Pulmonary service will continue to follow along
Assessment
-
Assessment: 89-year-old female with a past medical history of GERD, hypertension, hypothyroidism, gout, reported history of PE, and anxiety who presented with shortness of breath. She was found to have stridor with respiratory distress in the ER
and was treated with IV steroids. ENT consulted who performed flexible fiberoptic laryngoscopy showing patent airway with thick secretions in the larynx. She was recently hospitalized at [facility] for a shoulder dislocation/proximal
humerus fracture and was apparently intubated for 2 days before she self extubated and has had a hoarse voice since that time. She was admitted to the IMU after her respiratory status improved and pulmonary service continue to follow along.
Chronic conditions ANGLE SHEARER: Hypertension, hyperlipidemia, DM type II, gout, history of PE, hypothyroidism, ?History of seizures
Impression:
#Acute respiratory failure with shortness of breath and stridor suspected to be from laryngospasm vs acute mucous plugging
#History of endotracheal intubation which was recently done at [facility] [address] [facility] with hoarse voice s/p self-extubation
#Comminuted fracture of the proximal right humerus
#History of hypertension
#History of gout
#History of PE
#?History of seizure disorder -according to the grandson patient has had no history of seizures
#Former tobacco smoker (quit about 40 years ago)
#Hx of DM type II
Plan:
- Patient is currently improved with no stridor, no wheezing and breathing comfortably on room air
- ENT saw the patient on 06/25/2024 and performed a flexible fiberoptic laryngoscopy showing moderate thick secretions in the larynx with no mass or neoplasm seen at the vocal cord level
- Based on ENT's evaluation, I suspect that her thick secretions possibly caused her to develop mucous plugging
- Continue with Decadron 4 mg IV q12hr and wean as she clinically improves
- Maintain SpO2 >90-94% with supplemental O2 as needed
- prn nebulized bronchodilators - not currently bronchospastic
- Continue 3% but change from q6hr to TID for now
- Incentive spirometer encouraged q1hr while awake
- Acapella if needed
- Start mucinex
- Continue with Eliquis for a reported history of PE
- Currently on a loading dose
- Obtain prior medical records to confirm this history of PE
- CT chest shows patchy groundglass opacification in the right upper lobe with atelectasis in the right middle lobe and left lower lobe
- Suspect that she has a component of pulmonary aspiration
- Continue with Augmentin as per ID
- Urine antigens for Legionella + strep pneumonia both negative; check respiratory culture if patient can produce a decent sample
- Recommend repeating CT chest in about 6-8 weeks to assess for improvement in these groundglass opacities
- Continue AEDs for now despite us not knowing if pt truly has a Hx of seizures
- Replete electrolytes with K>4, Mg>2
- Trend H/H and transfuse if needed to keep Hb>7g/dL; keep plt>20k, unless there is concern for bleeding then keep plt>50k
- Maintain euglycemia with goal BG >100 and <180
- DVT ppx: Eliquis
Code status: DNR/DNI
Pulmonary service will continue to follow along.
Data:
CT chest/neck 06/25/2024:
Overall limited evaluation without intravenous contrast demonstrating some soft tissue prominence predominantly within the laryngeal and hypopharyngeal soft tissues of the neck which may be on an inflammatory/infectious basis. Unfortunately, soft
tissue mass such as malignancy cannot be excluded. Recommend direct visualization.
Cardiomegaly and coronary artery calcifications.
Elevated right hemidiaphragm. Bibasilar subsegmental atelectasis and/or scarring, left greater than right.
Comminuted fracture of the proximal right humerus incompletely included on this study. Recommend radiograph of the right shoulder were dedicated right shoulder CT.
Total time spent today was 38 minutes for this encounter. Time includes reviewing laboratory test/imaging results, reviewing pertinent medical records, obtaining and reviewing medical history, performing an appropriate exam, ordering medications,
tests and procedures. Time also includes documentation of this encounter, coordinating patient care and communicating with other healthcare professionals. Total time does not include separately billed tests performed on this date of service.
Subjective Data
-
Date of Service:
Date of Service: June 26, 2024
Chief Complaint: Pulmonary Follow Up
Subjective:
Patient seen and evaluated this morning. [place] rail signal designer used (rail signal designer number: [id number]). She says she became suddenly short of breath which never happened before and she currently is breathing comfortably. She does not normally follow with
a lung doctor. She is currently on room air, saturating 97% with heart rate 61 and BP 146/56. She denies chest pain, PARK, nausea, fevers or chills.
Review of Systems
General: Other (Negative unless mentioned above)
Objective Data
Data Reviewed
Vital Signs / I&O / Oxygen:
Vital Signs
Temp Pulse Resp BP Pulse Ox
98.1 F 66 16 155/56 96
06/26/24 03:00 06/26/24 07:48 06/26/24 07:48 06/26/24 06:00 06/26/24 07:48
Intake and Output
06/25/24 06/26/24 06/27/24
06:59 06:59 06:59
Intake Total 900 / 900
Output Total 100 / 100
Balance -100 / -100 900 / 900
SaO2 96
Nasal Cannula flow liters per 2
minute
Physical Exam
General: Respiratory Distress (negative), Comfortable, Chills (negative) and Sweats (negative)
HEENT: Normocephalic and Anicteric
Cardiovascular: S1-S2 and Peripheral Edema (negative)
Respiratory: Clear, Wheeze (negative), Crackles (negative), Rhonchi (negative), Non-Labored Respirations and Stridor (negative)
GI: Soft, Non Distended, Non Tender and Normal Bowel Sounds
Neurology: AO x 3 and Tremors (negative)
Skin: Warm, Dry, Cyanosis (negative) and Jaundice (negative)
Labs/Micro/Reports
Lab Data
06/26/24 03:37
06/26/24 03:37
Microbiology
06/26/24 03:41 Urine Legionella Urinary Antigen - Final
Negative for Legionella pneumophila Serogroup 1 antigen.
A negative result does not rule out the possiblity of
Legionella infection due to other serogroups or species of
Legionella. Clinical correlation is recommended.
06/26/24 03:41 Urine Streptococcus pneumoniae Antigen (M - Final
Negative for Streptococcus pneumoniae antigen.
A negative result does not exclude infection with
Streptococcus pneumoniae. Clinical correlation is
recommended.
06/25/24 04:11 Nasal Swab Influenza Types A & B (NICOLAS) - Final
Negative for Influenza A & B, NAAT
Negative results must be combined with clinical observations
and patient history.
Nucleic Acid Amplification test (NAAT)performed on the
[employer] platform.
[2024-06-26 08:39] LABS: Glycohemoglobin (HgbA1c) 8.3 % (4.0-5.6)
[2024-06-26] MEDS: DECADRON 4 MG IV ×2 (09:56→21:25)
[2024-06-26] MEDS: AUGMENTIN 875 MG/125 MG 1 TABLET PO ×2 (09:56→21:25)
[2024-06-26] MEDS: LOPRESSOR 50 MG PO ×2 (09:56→21:24)
[2024-06-26] MEDS: ELIQUIS 10 MG PO ×2 (09:57→21:25)
[2024-06-26] MEDS: KEPPRA 250 MG PO (09:57)
[2024-06-26] MEDS: ZYLOPRIM 300 MG PO (09:57)
[2024-06-26] MEDS: ULTRAM 50 MG PO ×3 (10:13→23:46)
--- NOTE | 2024-06-26 11:38 | CM ---
[place]ian speaking patient from [facility] with Hx recent fall with right shoulder injury/humeral fracture. Room air. Dysphagia diet. Wound care nurse consult pending. ST/PT/OT evals pending.
Spoke with Jodi Richmond & Arturo GILES [facility];
the patient came to them from [facility] and was at SNF from 06/21 to 06/25/24 for short term rehab and is not on a bed hold.
She speaks [place] Lucian, was A/O x3.
The patient was assisted with ADLs and was wearing an arm sling.
She was receiving PT/OT: required mod assist for transfers, able to ambulate 20 feet with RW.
Patient was on a dysphagia diet.
The patient was not on O2.
They are able to accept the patient back to complete rehab when medically ready.
The for report [phone], fax [phone].
Spoke with Mariah (known as Tennille), patient's daughter;
the patient was living alone in an 2nd floor apartment with 5 [address] in [facility].
Daughter may have her return to her house after rehab depending on how she is doing.
Mariah would like her mother to return to [facility] at d/c to complete rehab.
Plan return to [facility] when medically ready.
--- NOTE | 2024-06-26 11:40 | PTOTSP ---
Speech Language Pathology
Pt seen for clinical bedside swallow evaluation. Spoke with daughter on phone who reported that pt had fiberoptic endoscopic swallowing examination (FEES) completed at [facility] with recommendations for puree/mildly thick liquids. P.O. trials of
thin water, mildly thick liquids, and puree provided. Delayed coughing noted with 1/5 trials of thin liquids. Facial grimacing noted at times with P.O. intake, but pt denied odynophagia.
Recommend:
(1) VSE to determine current swallow function as dysphagia was suspected to be post-extubation related
(2) IDDSI level 4 (puree) and mildly thick liquids until VSE completed
(3) Aspiration precautions: sit upright, slow rate, single sips
(4) Meds as tolerated
(5) ASBESTOS SHINGLE ROOFER to continue to follow
[2024-06-26] MEDS: NOVOLOG FLEXPEN 7 UNITS SC ×2 (11:58→17:03)
[2024-06-26 12:03] LABS: Glucose - Point of Care 215 mg/dl (70-99)
--- NOTE | 2024-06-26 14:25 | WOUNDNOTE ---
R LATERAL VIEW OF HEEL
--- NOTE | 2024-06-26 14:27 | WOUNDNOTE ---
SUDHAKAR RN note: Patient admitted with acute respiratory distress.
See H&P for complete history. [facility], speaks Lithuanian.
PMH: HTN,IDDM,DC,PE,CAD,Fall-R shoulder dislocation and humerus fracture, R heel blood blister.
Wound Location and type/assessment: Patient admitted with: R heel shallow blood blister. DTI vs stage 2 PI, can see some healthy skin underneath blister. No drainage noted, skin warm and dry + pedal pulse. L heel is intact. No other skin issues per
nurse Debra. Patient sitting in recliner chair, elevated legs with heels hanging off end.
Appetite: Good.
Pressure redistribution devices in place: On air mattress, can use Accumax, Waffle air heel boots in use.
Plan: Adaptic and dry dressing applied to R heel. Foam adhesive to L heel to protect. Continue offloading.
Will confirm orders with hospitalist and updated nurse.
Updated care plan and will follow as needed.
Note to case management of equipment requested for discharge:
Recommend follow up at wound care center upon discharge.
--- NOTE | 2024-06-26 16:00 | PTCARENOTE ---
Patient AAOX3, she is Belizean speaking but knows some Kinyarwanda. Right arm in sling for fx/dislocation. Medicating with ultram for pain. Pain hurts worse with movement. IV fluids infusing via left midline. Out of bed with assistance x2 to chair
and bedside commode. Patient's daughter Tennille currently in room at bedside.
[2024-06-26 17:00] LABS: Glucose - Point of Care 299 mg/dl (70-99)
[2024-06-26] MEDS: PROCARDIA XL (EXTENDED RELEASE) 30 MG PO (17:00)
[2024-06-26] MEDS: NOVOLOG FLEXPEN-HIGH RESISTANCE 7 UNITS SC ×2 (17:02→23:46)
--- NOTE | 2024-06-26 18:01 | PTCARENOTE ---
Patient bladder scanned for 384 as per MD order. Patient voided 420mls mike urine via bedside commode. Patient also had large formed BM. Report given to Rosibel REYNOSO. Patient transferred to [facility] via stretcher and two RN'S. All belongings with the
patient.
--- NOTE | 2024-06-26 18:15 | PTCARENOTE ---
Received pt from IMU via stretcher, pulled over to bed. Pt repositioned, call beltran in reach. Telemetry applied.
[2024-06-26] MEDS: MUCINEX 1200 MG PO (21:25)
--- NOTE | 2024-06-26 22:33 | PTCARENOTE ---
Pt's HR decreased from 60s sinus rhythm to 40, then increased back up to 50s sinus rhythm. Pt is asleep and asymptomatic. KINSEY Xavier notified, no new orders.
[2024-06-26 23:45] LABS: Glucose - Point of Care 250 mg/dl (70-99)
[2024-06-26] MEDS: LANTUS 0.4 UNITS SC (23:45)
[2024-06-27 03:19] VITALS: BP 119/49
[2024-06-27 05:40] LABS: Glucose - Point of Care 247 mg/dl (70-99)
[2024-06-27] MEDS: ULTRAM 50 MG PO ×2 (05:47→20:02)
[2024-06-27] MEDS: NOVOLOG FLEXPEN-HIGH RESISTANCE 4 UNITS SC (05:47)
[2024-06-27] MEDS: SYNTHROID 88 MCG PO (05:47)
[2024-06-27 07:30] VITALS: BP 136/58
[2024-06-27 07:30] LABS: Glucose - Point of Care 241 mg/dl (70-99)
[2024-06-27 07:41] LABS: Blood Urea Nitrogen 60 mg/dl (7-17); Carbon Dioxide 21 mmol/L (22-30); Chloride 101 mmol/L (98-107); Glucose 241 mg/dl (70-99); Potassium 4.7 mmol/L (3.5-5.1); Sodium 132 mmol/L (135-145); eGFR 26.93
[2024-06-27] MEDS: SODIUM CHLORIDE 3% FOR INHALATION 1 VIAL INH ×2 (07:45→20:46)
--- NOTE | 2024-06-27 08:24 | W.PN.HOSP.TC ---
Today's Communication/Plan
-
Urine testing
Renal US
Oral prednisone
f/w nephrology recommendations
PT/OT
Assessment / Plan
Assessment / Plan
Physical Exam
General: not in respiratory Distress, no Stridor heard, Obese
HEENT: Moist mucous membranes and Atraumatic
Respiratory: Decreased Breath Sounds, no wheezes.
Cardiac: S1/S2
GI: Soft and Non Tender
Rectal: No Maroon Stools
Genito-urinary: Clear Urine
Musculoskeletal: No Cyanosis
Skin: No Jaundice
Neuro: Oriented and Other (She follows simple commands)
Psych: Anxious; No Agitated
89 years old female presented with sore throat and respiratory distress
# Oniel
Seems creatinine to climb up despite IVF
No flank pain or retention per bladder scan protocol
Could be related to viral syndrome or medication induced ( she received Vancomycin)
Stopped vancomycin
order urine test, urine creatinine, sodium, urine eosinophils, renal US
Consult nephrology
No need for more IVF
Change her medications doses to renally appropriate.
Consult nephrology, appreciate input.
#History of Sore throat
Acute laryngitis
Stridor and respiratory distress : resolved. Not hypoxic.
Negative COVID and influenza screen, cannot rule out other viral infection. Negative Legionella and Streptococcus antigens.
Chest radiography did not show definitive infiltrate.
CT scan of the chest, no pneumonia. Neck without contrast, no obstructive lesion.
s/p IV steroid, taper oral prednisone. low-dose Benadryl PRN. 3 % nasal nebulizer Q TID
Empiric antibiotics given.
Appreciate ENT, pulmonary and ID help
# history of diabetes.
Expect hyperglycemia with a steroid and stress related to acute illness
Do insulin sliding scale and long-acting insulin. Add pre-meal insulin
#History of essential hypertension
Continue medications from home,
# drop in HGB, suspect dilutional.
# Gout, c/w allopurinol.
# History of hypothyroidism,
#Recent right shoulder injury/humeral fracture. c/w PRN Tramadol & Tylenol.
# Patient seems to be on Keppra. d/w family, was given to her pre-intubation , daughter felt it was panic attack more than seizure or respiratory problem, stopped Keppra. Monitor.
# History of pulmonary embolism. will continue Eliquis for now
# Hyperlipidemia, no changes intended
#Obesity,
#DVT prophylaxis with GI prophylaxis
# Try to get records from her primary care doctor and recent hospitalization
Total time spent to see the patient, examine the patient, review data and lab results, discuss treatment plan with patient and nursing staff around 57 minutes
Anticipated Discharge: > 48 hours
Subjective/Interval History
-
Date of Service: June 27, 2024
She reports less sore throat
No cough
No sob
No abdominal pain
Objective Data
-
Labs:
Laboratory Results
06/27/24
06:44
Sodium 132 L
Potassium 4.7
Chloride 101
Carbon Dioxide 21 L
BUN 60 H
Creatinine 1.8 H
Glucose 241 H
Calcium 8.0 L
Vital Signs:
Vital Signs
Temp Pulse Resp BP Pulse Ox
97.7 F 60 18 136/58 98
06/27/24 07:30 06/27/24 07:49 06/27/24 07:49 06/27/24 07:30 06/27/24 07:49
I&O
06/26/24 06/27/24 06/28/24
06:59 06:59 06:59
Intake Total 3565 / 3565
Output Total 100 / 100 760 / 760
Balance -100 / -100 2805 / 2805
[2024-06-27] MEDS: PROCARDIA XL (EXTENDED RELEASE) 30 MG PO (09:03)
[2024-06-27] MEDS: MUCINEX 1200 MG PO ×2 (09:03→20:02)
[2024-06-27] MEDS: AUGMENTIN 875 MG/125 MG PO (09:03)
[2024-06-27] MEDS: DELTASONE 20 MG PO (09:03)
[2024-06-27] MEDS: LOPRESSOR PO (09:04)
[2024-06-27] MEDS: ZYLOPRIM PO (09:04)
[2024-06-27] MEDS: ELIQUIS PO (09:04)
--- NOTE | 2024-06-27 09:28 | W.PN.PUL3 ---
Today's Communication / Plan
-
Recommend rapid taper off of prednisone
Aspiration precautions, head of bed elevated
Antibiotics per ID
Consider follow-up CT imaging in 2 to 3 months to confirm resolution of groundglass abnormality this should be done through primary physician
We will sign off. Please call with questions
Assessment
-
Assessment: 89-year-old female with a past medical history of GERD, hypertension, hypothyroidism, gout, reported history of PE, and anxiety who presented with shortness of breath. She was found to have stridor with respiratory distress in the ER
and was treated with IV steroids. ENT consulted who performed flexible fiberoptic laryngoscopy showing patent airway with thick secretions in the larynx. She was recently hospitalized at [facility] for a shoulder dislocation/proximal
humerus fracture and was apparently intubated for 2 days before she self extubated and has had a hoarse voice since that time. She was admitted to the IMU after her respiratory status improved and pulmonary service continue to follow along.
Chronic conditions IT CONSULTING DIRECTOR: Hypertension, hyperlipidemia, DM type II, gout, history of PE, hypothyroidism, ?History of seizures
Impression:
#Acute respiratory failure with shortness of breath and stridor suspected to be from laryngospasm vs acute mucous plugging
#History of endotracheal intubation which was recently done at [facility] with hoarse voice s/p self-extubation
#Comminuted fracture of the proximal right humerus
#History of hypertension
#History of gout
#History of PE
#?History of seizure disorder -according to the grandson patient has had no history of seizures
#Former tobacco smoker (quit about 40 years ago)
#Hx of DM type II
Plan/recommendations:
At this time, patient appears to be comfortable
There is no evidence of stridor, no wheezing
Patient does have adequate cough
Chest exam is clear
ENT evaluation unremarkable
Neck CT without obvious abnormality
Moving forward
Airway clearance measures, mucolytic therapy as needed
Head of bed elevated, aspiration precautions
Recommend rapid taper off of prednisone
Patient remains on Eliquis for history of PE
Antibiotics per infectious disease
Would recommend eventual follow-up CT chest as outpatient given groundglass abnormalities seen about 2 to 3 months
This should be done through primary physician
Code status: DNR/DNI
We will sign off. Please call with questions
Data:
CT chest/neck 06/25/2024:
Overall limited evaluation without intravenous contrast demonstrating some soft tissue prominence predominantly within the laryngeal and hypopharyngeal soft tissues of the neck which may be on an inflammatory/infectious basis. Unfortunately, soft
tissue mass such as malignancy cannot be excluded. Recommend direct visualization.
Cardiomegaly and coronary artery calcifications.
Elevated right hemidiaphragm. Bibasilar subsegmental atelectasis and/or scarring, left greater than right.
Comminuted fracture of the proximal right humerus incompletely included on this study. Recommend radiograph of the right shoulder were dedicated right shoulder CT.
Total time spent today was 38 minutes for this encounter. Time includes reviewing laboratory test/imaging results, reviewing pertinent medical records, obtaining and reviewing medical history, performing an appropriate exam, ordering medications,
tests and procedures. Time also includes documentation of this encounter, coordinating patient care and communicating with other healthcare professionals. Total time does not include separately billed tests performed on this date of service.
Subjective Data
-
Date of Service:
Date of Service: June 27, 2024
Chief Complaint: Pulmonary Follow Up
Subjective:
Patient presently with mild cough, on room air. She denies chest pain. Language barrier noted. She is following commands, understands some Djib[place]ian. Appears comfortable. Right shoulder immobilized
Objective Data
Data Reviewed
Vital Signs / I&O / Oxygen:
Vital Signs
Temp Pulse Resp BP Pulse Ox
97.7 F 60 18 136/58 98
06/27/24 07:30 06/27/24 07:49 06/27/24 07:49 06/27/24 07:30 06/27/24 07:49
Intake and Output
06/26/24 06/27/24 06/28/24
06:59 06:59 06:59
Intake Total 3565 / 3565
Output Total 100 / 100 760 / 760
Balance -100 / -100 2805 / 2805
SaO2 98
Nasal Cannula flow liters per 2
minute
Physical Exam
General: Comfortable and Other (Right shoulder immobilized)
HEENT: Normocephalic and Anicteric
Cardiovascular: S1-S2, Regular Rhythm, Murmur (n), Peripheral Edema (negative) and Other
Respiratory: Clear, Wheeze (negative), Crackles (negative), Rhonchi (negative), Non-Labored Respirations and Stridor (negative)
GI: Soft, Non Distended, Non Tender and Normal Bowel Sounds
Neurology: AO x 3 and Tremors (negative)
Skin: Warm, Dry, Cyanosis (negative) and Jaundice (negative)
Labs/Micro/Reports
Lab Data
06/26/24 03:37
06/27/24 06:44
Microbiology
06/26/24 03:32 Nose Nasal Screen MRSA (PCR) - Final
MRSA not detected - performed by PCR methodology.
06/26/24 03:41 Urine Legionella Urinary Antigen - Final
Negative for Legionella pneumophila Serogroup 1 antigen.
A negative result does not rule out the possiblity of
Legionella infection due to other serogroups or species of
Legionella. Clinical correlation is recommended.
06/26/24 03:41 Urine Streptococcus pneumoniae Antigen (M - Final
Negative for Streptococcus pneumoniae antigen.
A negative result does not exclude infection with
Streptococcus pneumoniae. Clinical correlation is
recommended.
06/25/24 04:11 Nasal Swab Influenza Types A & B (NICOLAS) - Final
Negative for Influenza A & B, NAAT
Negative results must be combined with clinical observations
and patient history.
Nucleic Acid Amplification test (NAAT)performed on the
[employer] platform.
--- NOTE | 2024-06-27 09:30 | PTOTSP ---
Speech Language Pathology
VIDEOFLUOROSCOPIC SWALLOWING EXAMINATION (VSE) completed. Oropharyngeal swallow WFL. No significant pharyngeal residue noted. Transient supraglottic penetration (PAS 2) noted with consecutive straw sips of thin liquids. No other penetration or
any aspiration noted. Unable to complete esophageal sweep given body habitus.
Recommend:
(1) Upgrade to regular solids/thin liquids
(2) General aspiration precautions
(3) Meds as tolerated
(4) PIN [email or web address] to sign off. Please reconsult as indicated
--- NOTE | 2024-06-27 09:55 | PN.CDI ---
Addendum entered and electronically signed by Lesley Pérez MD 06/27/24 11:20:
Hypertensive Urgency,POA
Original Note:
CDI
- -
CDI:
Physician Documentation Request
Admit Date: 06/25/24 11:41
Dear Doctor Elisa,
Clinical Indicators:
Patient admitted with acute laryngitis.
2/3, 2/4 Hydralazine IV x 2 doses
2/4 PN, 'Acute kidney injury. Will add bladder scan protocol. Avoid nephrotoxic. Control of blood pressure. Essential hypertension, uncontrolled, will add nifedipine'
BP trend on admission:
06/25/24
05:33 06/25/24
06:00 06/25/24
09:01
Blood pressure 189/84 213/81 208/115
06/25/24
11:41 06/25/24
14:00 06/25/24
15:00
Blood pressure 216/77 190/109 205/67
Pleases clarify which, if any of the following, is a more accurate diagnosis reflecting the type and acuity of the documented hypertension:
Hypertensive Emergency, POA - B/P is severely elevated (systolic > or = to 180 or diastolic > or = to 110) but can occur at lower levels especially in patients who did not previously have high B/P. There is usually associated organ damage. Symptoms
may include: memory loss, LOC, CVA, IL, angina, renal failure, pulmonary edema. Generally requires more aggressive treatment and a hospitalization.
Hypertensive Urgency,POA - B/P is severely elevated (systolic > or = to 180 or diastolic > or = to 110) but there is no associated organ damage. Symptoms may include: headache, shortness of breath, nosebleeds, severe anxiety. Treatment usually
consists of addition to or adjusting of oral medications and does not generally necessitate hospitalization.
Essential primary hypertension only
Other (please specify)
Use of terms such as suspected, likely, concern for, or probable (associated with a specific diagnosis that is being evaluated, monitored, or treated as if it exists) are acceptable and can be coded in the inpatient setting, when documented at the
time of discharge.
Thank you,
Tracie Rayo RN BSN
CDI Specialist
available via tiger text
Please use your independent medical judgment in providing your response.
[2024-06-27] MEDS: NSS 1000 IV (10:56)
--- NOTE | 2024-06-27 11:11 | PN.CDI ---
Addendum entered and electronically signed by Lesley Pérez MD 06/27/24 11:53:
Acute Laryngitis only
Original Note:
CDI
- -
CDI:
Physician Documentation Request
Admit Date: 06/25/24 11:41
Dear Doctor Elisa,
Clinical Indicators:
Patient admitted with respiratory distress and stridor; recently intubated and self extubated.
2/3 H & P, 'Sore throat/suspect acute laryngitis/stridor/respiratory distress'
2/3 ENT consult, 'The patient does have thick secretions that she may be having difficulty tolerating.'
2/4 Pulmonary PN, '...shortness of breath and stridor suspected to be from laryngospasm vs acute mucous plugging'
Racemic Epinephrine given in ED.
Decadron 10mg IV in ED x1; now 4 mg IV daily.
Based on the above, could you clarify in the progress notes, the etiology of the respiratory distress and stridor::
Multifactorial, due to acute laryngitis with suspected laryngeal spasm/mucous plugging, POA
Acute Laryngitis only
Other
Use of terms such as suspected, likely, concern for, or probable (associated with a specific diagnosis that is being evaluated, monitored, or treated as if it exists) are acceptable and can be coded in the inpatient setting, when documented at the
time of discharge.
Thank you,
Tracie Rayo RN BSN
CDI Specialist
available via tiger text
Please use your independent medical judgment in providing your response.
[2024-06-27] MEDS: AUGMENTIN 500 MG/125 MG 1 TABLET PO ×2 (11:51→20:02)
[2024-06-27] MEDS: ELIQUIS 10 MG PO ×2 (11:52→20:02)
[2024-06-27] MEDS: NOVOLOG FLEXPEN 7 UNITS SC ×2 (11:52→18:25)
[2024-06-27 11:53] VITALS: BP 133/54
[2024-06-27 12:04] LABS: Glucose - Point of Care 253 mg/dl (70-99)
[2024-06-27] MEDS: NOVOLOG FLEXPEN-HIGH RESISTANCE 7 UNITS SC (13:50)
[2024-06-27] MEDS: NOVOLOG FLEXPEN-HIGH RESISTANCE SC (13:55)
[2024-06-27 15:00] VITALS: BP 130/60
--- NOTE | 2024-06-27 15:35 | W.CON.NEPH ---
Consultation
-
Date/Time Consultation Requested: 06/27/24 0817
Date/Time Consultation Performed: 06/27/24 1545
Requesting Provider: Lseley Montgomery
Performing Provider: Susie Barone
Reason for Consultation: ONIEL
Medical History
-
Chief Complaint: SOB
History of Present Illness:
89 years old [place]occan speaking female with PMH of HTN on BB, IDDM, PE On AC with ELiquis, HLD on statin, hypothyroidism on levothyroxine who came in from [facility] rehab facility after experienced shortness of breath for a few days
on 06/25.
Reportedly pt had recent hospitalization at [facility] for shoulder dislocation/proximal humerus fracture from fall and felt not surgical candidate, she also had VDRF 2days, and self extubated. Since then has mild SOB. She then
d/c to rehab, now she came with increasing sob. She felt to have laryngospasm vs acute mucous plugging since she had stridor. currently on steroids and plan to wean. Her cr on admit was at 0.9 and now increasing to 1.8 with sodium low at 132 hence
nephrology consulted. HIstory is limited due to language barrier. No history of asthma, tobacco use, sleep apnea. Patient lived independently at home before the incidence.
She offers no CP, sob, abd pain. No n/v. mild pain in left shoulder. no NSAIDs use SUEDE BRUSHER.
Past Medical History
Hypertension, hyperlipidemia, diabetes, gout, history of pulmonary embolism, hypothyroidism, HLD, chr back pain, Anxiety , Rt humerus fx
Social History
Tobacco: Former Smoker
Alcohol: None
Drug: None
Personal: Single
Living: Alone
Allergies / Home Medications
Allergy/AdvReac Type Severity Reaction Status Date / Time
clopidogrel [From Plavix] Allergy Unknown Unknown Verified 06/25/24 04:06
Iodinated Contrast Media Allergy Unknown Unknown Verified 06/25/24 04:06
metronidazole Allergy Unknown Unknown Verified 06/25/24 04:06
morphine Allergy itching Verified 06/25/24 11:46
and
reddness,
slight
shortness
of breath
�Medication �Instructions �Recorded �Confirmed �Type
acetaminophen 325 mg tablet 650 mg PO Q6H PRN temp>100.4, mild 06/25/24 06/25/24 History
(Tylenol) pain
albuterol sulfate 2.5 mg/3 mL 2.5 mg inhalation Q6H wheezing 06/25/24 06/25/24 History
(0.083 %) solution for nebulization
albuterol sulfate 2.5 mg/3 mL 2.5 mg inhalation QID 06/25/24 06/25/24 History
(0.083 %) solution for nebulization
apixaban 5 mg tablet (Eliquis) See Rx Instructions .Route 06/25/24 06/25/24 History
.COMPLEX pulm embolism
atorvastatin 80 mg tablet 80 mg PO HS 06/25/24 06/25/24 History
bisacodyl 10 mg rectal suppository 10 mg OK DAILY PRN constipation, 06/25/24 06/25/24 History
if MOM ineffective
buspirone 5 mg tablet 5 mg PO DAILY 06/25/24 06/25/24 History
cholecalciferol (vitamin D3) 125 125 mcg PO DAILY 06/25/24 06/25/24 History
mcg (5,000 unit) capsule
clotrimazole-betamethasone 1 1 applic topical BID affected area 06/25/24 06/25/24 History
%-0.05 % topical cream
dexlansoprazole 30 mg 60 mg PO DAILY 06/25/24 06/25/24 History
capsule,biphase delayed release
insulin glargine 100 unit/mL (3 20 unit SC HS 06/25/24 06/25/24 History
mL) subcutaneous pen (Lantus
Solostar U-100 Insulin)
insulin lispro 100 unit/mL 0 - 10 unit SC .SLIDING SCALE AC 06/25/24 06/25/24 History
subcutaneous pen
insulin lispro 100 unit/mL 3 unit SC AC 06/25/24 06/25/24 History
subcutaneous pen
levetiracetam 250 mg tablet 250 mg PO BID seizure prevention 06/25/24 06/25/24 History
levothyroxine 88 mcg tablet 88 mcg PO DAILY 06/25/24 06/25/24 History
magnesium hydroxide 400 mg/5 mL 2,400 mg PO HSPRN PRN no BM x 3 06/25/24 06/25/24 History
oral suspension (Milk of Magnesia) days
meclizine 12.5 mg tablet 12.5 mg PO DAILYPRN PRN dizzyness 06/25/24 06/25/24 History
melatonin 5 mg tablet 5 mg PO HS 06/25/24 06/25/24 History
metoprolol tartrate 50 mg tablet 50 mg PO BID 06/25/24 06/25/24 History
montelukast 10 mg tablet 10 mg PO DAILY 06/25/24 06/25/24 History
polyethylene glycol 3350 17 gram 17 g PO DAILY Constipation 06/25/24 06/25/24 History
oral powder packet (Miralax)
sennosides 8.6 mg tablet (Senokot) 17.2 mg PO HS 06/25/24 06/25/24 History
sodium chloride 0.65 % nasal spray 2 spray intranasal Q2H PRN 06/25/24 06/25/24 History
aerosol congestion
ticagrelor 90 mg tablet (Brilinta) 90 mg PO BID Blood Clot 06/25/24 06/25/24 History
Prevention/Tx
tramadol 50 mg tablet 50 mg PO Q6HPRN PRN severe pain 06/25/24 06/25/24 History
Review of Systems
-
All complete 12 point ROS inquired and found negative other than stated in HPI
Physical Exam
Vital Signs
Vital Signs
Temp Pulse Resp BP Pulse Ox
97.4 F 61 18 133/54 96
06/27/24 11:53 06/27/24 11:53 06/27/24 11:53 06/27/24 11:53 06/27/24 11:53
Lab Results
WBC 6.2 10^3/uL (4.8-10.8) 06/26/24 03:37
RBC 3.24 10^6/uL (4.20-5.40) L 06/26/24 03:37
Hgb 9.4 g/dL (12.0-16.0) L 06/26/24 03:37
Hct 28.8 % (37.0-47.0) L 06/26/24 03:37
Plt Count 294 10^3/uL (130-400) 06/26/24 03:37
Sodium 132 mmol/L (135-145) L 06/27/24 06:44
Potassium 4.7 mmol/L (3.5-5.1) 06/27/24 06:44
Chloride 101 mmol/L (98-107) 06/27/24 06:44
Carbon Dioxide 21 mmol/L (22-30) L 06/27/24 06:44
BUN 60 mg/dl (7-17) H 06/27/24 06:44
Creatinine 1.8 mg/dL (0.6-1.0) H 06/27/24 06:44
eGFR 26.93 06/27/24 06:44
Glucose 241 mg/dl (70-99) H 06/27/24 06:44
Calcium 8.0 mg/dl (8.4-10.2) L 06/27/24 06:44
Zvs-S-Jhbpbmqkfay Pept 4230 pg/ml 06/25/24 09:15
Albumin 3.2 g/dl (3.5-5.0) L 06/26/24 03:37
renal US:
FINDINGS: The right kidney measures 8.8 cm in length and the left kidney measures 10.0 cm in length.
There are no findings to suggest renal collecting system dilatation or mass bilaterally. Evaluation for renal calculi limited.
IMPRESSION: Limited evaluation of the kidneys bilaterally, as noted above.
No findings to suggest renal collecting system dilatation bilaterally.
CT chest and neck with out :
IMPRESSION:
Overall limited evaluation without intravenous contrast demonstrating some soft tissue prominence predominantly within the laryngeal and hypopharyngeal soft tissues of the neck which may be on an inflammatory/infectious basis. Unfortunately, soft
tissue mass such as malignancy cannot be excluded. Recommend direct visualization.
Cardiomegaly and coronary artery calcifications.
Elevated right hemidiaphragm. Bibasilar subsegmental atelectasis and/or scarring, left greater than right.
Comminuted fracture of the proximal right humerus incompletely included on this study. Recommend radiograph of the right shoulder were dedicated right shoulder CT.
Physical Exam
General: Awake, Alert, Oriented, AOx3, No Distress and Nontoxic
HEENT: EOMI, Anicteric, Facial Symmetry and No JVD
Respiratory: Normal Excursion, Nonlabored Respirations and Other (decreased BS)
Cardiac: S1/S2 and Regular Rate/Rhythm
Breast: Deferred by me
Abdomen: Soft, Nontender, Nondistended and Other (obese)
Musculoskeletal: No Cyanosis and No Edema
Skin: No Rash
Neuro: Nonfocal/Grossly Intact
Psych: Insight/judgement good and Appropriate
Data Reviewed
-
Radiology: Report Reviewed by me and Discussed with Patient
Labs: Labs Reviewed by me and Discussed with Patient
Assessment/Plan
-
IMP:
Oniel
History of Sore throat
Acute laryngitis
Stridor and respiratory distress : resolved
mild hyponatremia
history of diabetes.
History of essential hypertension
Anemia
Gout
History of hypothyroidism
Recent right shoulder injury/humeral fracture
History of pulmonary embolism
Hyperlipidemia
Obesity
Plan:
A/w URI symp, laryngitis
ONIEL-no clear etiology, await urine studies
bladder scan 266cc, seem non oliguric
renal US non acute with out hydro
BP were high 200 range on admit now improved on meds, no drastic drop in BP noted
no contrast exposure noted
avoid nephrotoxins
follow labs
d/w pt
[2024-06-27] MEDS: NOVOLOG FLEXPEN SC (16:12)
[2024-06-27 17:16] LABS: Glucose - Point of Care 358 mg/dl (70-99)
[2024-06-27] MEDS: NOVOLOG FLEXPEN-HIGH RESISTANCE 12 UNITS SC (18:25)
[2024-06-27 18:29] LABS: Urine Albumin 1+ (Neg - Trace); Urine Bilirubin Negative (Negative); Urine Character Slightly Cloudy (Clear); Urine Color Yellow; Urine Glucose 2+ (Negative); Urine Ketone Negative (Negative); Urine Leukocyte 2+ (Negative); Urine Nitrite Negative (Negative); Urine Occult Blood 4+ (Negative); Urine Specific Gravity 1.015 (<1.030); Urine Urobilinogen Negative (Neg - 1+)
[2024-06-27 18:48] LABS: Urine Sodium 88 mmol/L (30-90)
[2024-06-27 18:51] LABS: Urine Bacteria Moderate (Negative); Urine Red Blood Cell 30-40 /HPF (0-2); Urine White Cell 26-30 /HPF (0-5)
[2024-06-27 19:17] LABS: Body Fluid for Eosinophils No Eosinophils seen
[2024-06-27 19:36] VITALS: BP 116/57
[2024-06-27] MEDS: VENTOLIN NEBULES 2.5 MG INH (20:46)
[2024-06-27 22:09] LABS: Glucose - Point of Care 196 mg/dl (70-99)
[2024-06-27 22:59] VITALS: BP 147/52
[2024-06-27] MEDS: MELATONIN 5 MG PO (23:19)
[2024-06-27] MEDS: LANTUS 0.4 UNITS SC (23:19)
[2024-06-28] VITALS (7 sets, daily range): BP systolic 104–169; BP diastolic 49–76
[2024-06-28] MEDS: ULTRAM 50 MG PO ×3 (03:11→18:24)
[2024-06-28 04:14] LABS: Hematocrit 27.1 % (37.0-47.0); Hemoglobin 8.8 g/dL (12.0-16.0); Mean Corp Hgb Conc. 32.5 g/dL (33.0-37.0); Mean Corpuscular Hgb 29.5 pg (27.0-31.0); Mean Corpuscular Volume 90.9 fL (81.0-99.0); Mean Platelet Volume 8.7 fL (7.4-10.4); Platelet Count 303 10^3/uL (130-400); Red Blood Cell Count 2.98 10^6/uL (4.20-5.40); White Blood Cell Count 8.2 10^3/uL (4.8-10.8)
[2024-06-28 04:39] LABS: Blood Urea Nitrogen 64 mg/dl (7-17); Calcium 8.5 mg/dl (8.4-10.2); Carbon Dioxide 22 mmol/L (22-30); Chloride 103 mmol/L (98-107); Estimated Creatinine Clearance 21 ml/min; Glucose 132 mg/dl (70-99); Potassium 4.3 mmol/L (3.5-5.1); Sodium 137 mmol/L (135-145); eGFR 25.24
[2024-06-28] MEDS: SYNTHROID 88 MCG PO (05:21)
[2024-06-28 07:30] LABS: Glucose - Point of Care 102 mg/dl (70-99)
[2024-06-28] MEDS: ELIQUIS 10 MG PO ×2 (08:16→20:02)
[2024-06-28] MEDS: AUGMENTIN 500 MG/125 MG 1 TABLET PO (08:16)
[2024-06-28] MEDS: DELTASONE 20 MG PO (08:16)
[2024-06-28] MEDS: MUCINEX 1200 MG PO ×2 (08:16→20:03)
[2024-06-28] MEDS: NOVOLOG FLEXPEN-HIGH RESISTANCE 1 UNITS SC (08:17)
[2024-06-28] MEDS: PROCARDIA XL (EXTENDED RELEASE) 30 MG PO (08:17)
[2024-06-28] MEDS: NOVOLOG FLEXPEN 7 UNITS SC ×3 (08:18→18:26)
[2024-06-28] MEDS: SODIUM CHLORIDE 3% FOR INHALATION 1 VIAL INH ×3 (08:31→19:30)
[2024-06-28] MEDS: VENTOLIN NEBULES 2.5 MG INH ×3 (08:32→19:30)
[2024-06-28] MEDS: SODIUM CHLORIDE 3% FOR INHALATION INH (08:37)
--- NOTE | 2024-06-28 11:08 | W.PN.HOSP.TC ---
Addendum entered and electronically signed by Lesley Pérez MD 06/28/24 11:24:
Addendum
Date x-ray of the right shoulder. Comminuted humeral fracture. Will ask orthopedic to look at the x-ray and further recommendation, continue with the sling for now
End
Original Note:
Today's Communication/Plan
-
Finished steroid and Amoxil
creatinine is 1.9
Avoid hypotension
f/w nephrology recommendations
Assessment / Plan
Assessment / Plan
Encounter through language line 2/
physical Exam
General: not in respiratory Distress, no Stridor heard, Obese
HEENT: Moist mucous membranes and Atraumatic
Respiratory: Decreased Breath Sounds, no wheezes.
Cardiac: S1/S2
GI: Soft and Non Tender
Rectal: No Maroon Stools
Genito-urinary: Clear Urine
Musculoskeletal: No Cyanosis
Skin: No Jaundice
Neuro: Oriented and Other (She follows simple commands)
Psych: Anxious; No Agitated
89 years old female presented with sore throat and respiratory distress
# Oniel
Seems creatinine to climb up despite IVF
No flank pain or retention per bladder scan protocol
Could be related to viral syndrome or medication induced ( she received Vancomycin and penicillin)
Seems ONIEL consistent with acute tubular necrosis
Stopped vancomycin and amoxicillin
Urine test showed cloudy urine, await culture
Normal urine creatinine, low urine sodium, negative urine eosinophils,
No obstruction on renal US
No need for more IVF
Changed medications doses to renally appropriate, discussed with pharmacist.
Consulted nephrology, appreciate input.
#History of Sore throat
Acute laryngitis
Stridor and respiratory distress : resolved. Not hypoxic.
Negative COVID and influenza screen, cannot rule out other viral infection. Negative Legionella and Streptococcus antigens.
Chest radiography did not show definitive infiltrate.
CT scan of the chest, no pneumonia. Neck without contrast, no obstructive lesion.
s/p IV steroid,finished oral prednisone, low-dose Benadryl PRN. 3 % nasal nebulizer Q TID
s/p antibiotics given.
Appreciate ENT, pulmonary and ID help
# history of diabetes.
Expect hyperglycemia with a steroid and stress related to acute illness
Do insulin sliding scale and long-acting insulin. Add pre-meal insulin
#History of essential hypertension
Continue medications from home,
# drop in HGB, suspect dilutional.
# Gout, c/w allopurinol.
# History of hypothyroidism,
#Recent right shoulder injury/humeral fracture. c/w PRN Tramadol & Tylenol.
# Patient seems to be on Keppra. d/w family, was given to her pre-intubation , daughter felt it was panic attack more than seizure or respiratory problem, stopped Keppra. Monitor.
# History of pulmonary embolism. will continue Eliquis for now
# Hyperlipidemia, no changes intended
#Obesity,
#DVT prophylaxis with GI prophylaxis
# Try to get records from her primary care doctor and recent hospitalization
Total time spent to see the patient, examine the patient, review data and lab results, discuss treatment plan with patient, daughter and nursing staff around 57 minutes
Anticipated Discharge: > 48 hours
Subjective/Interval History
-
Date of Service: June 28, 2024
She feels better
No sore throat
Objective Data
-
Labs:
Laboratory Results
06/28/24
03:53
WBC 8.2
Hgb 8.8 L
Hct 27.1 L
Plt Count 303
Sodium 137
Potassium 4.3
Chloride 103
Carbon Dioxide 22
BUN 64 H
Creatinine 1.9 H
Glucose 132 H
Calcium 8.5
Vital Signs:
Vital Signs
Temp Pulse Resp BP Pulse Ox
97.8 F 70 18 104/49 97
06/28/24 11:05 06/28/24 11:05 06/28/24 11:05 06/28/24 11:05 06/28/24 11:05
I&O
06/27/24 06/28/24 06/29/24
06:59 06:59 06:59
Intake Total 3565 / 3565 360 / 360 240 / 240
Output Total 760 / 760
Balance 2805 / 2805 360 / 360 240 / 240
[2024-06-28 11:49] LABS: Glucose - Point of Care 182 mg/dl (70-99)
--- NOTE | 2024-06-28 12:35 | CM ---
Chart reviewed. Care is ongoing at this time.
Per chart, pt has comminuted humeral fracture, cont w/ sling, ortho to review x-ray see for recommendations
Therapy cont to recommend skilled rehab for pt at d/c
Plan: Pt to return to [facility] when stable to cont rehab
[2024-06-28] MEDS: NOVOLOG FLEXPEN-HIGH RESISTANCE 2 UNITS SC (13:02)
--- NOTE | 2024-06-28 15:52 | W.PN.NEPH.PH ---
Today's Communication / Plan
-
Trial IVF
Assessment/Plan
-
IMP:
Oniel
History of Sore throat
Acute laryngitis
Stridor and respiratory distress : resolved
mild hyponatremia
history of diabetes.
History of essential hypertension
Anemia
Gout
History of hypothyroidism
Recent right shoulder injury/humeral fracture
History of pulmonary embolism
Hyperlipidemia
Obesity
Plan:
A/w URI symp, laryngitis
ONIEL-no clear etiology, UA -ITI sample, await cx, Fena not low
bladder scan 266cc, neg U eosinophils
renal US non acute with out hydro
BP were high 200 range on admit now improved on meds
cr cont to increase slowly low normal BPs, suspect hemodynamic related
will give IVF today
improving hyponatremia
avoid nephrotoxins
follow labs
d/w pt
-
-
Date of Service: June 28, 2024
CC / HPI / ROS
-
Chief Complaint:
ONIEL
History of Present Illness:
cr up at 1.9, UOP not recorded
BP low normal range
no fever,
Review of Systems:
no dizzy today
no cp or sob
no n/v
pain in right shoulder
Labs
-
Labs:
WBC 8.2 10^3/uL (4.8-10.8) 06/28/24 03:53
RBC 2.98 10^6/uL (4.20-5.40) L 06/28/24 03:53
Hgb 8.8 g/dL (12.0-16.0) L 06/28/24 03:53
Hct 27.1 % (37.0-47.0) L 06/28/24 03:53
Plt Count 303 10^3/uL (130-400) 06/28/24 03:53
Sodium 137 mmol/L (135-145) 06/28/24 03:53
Potassium 4.3 mmol/L (3.5-5.1) 06/28/24 03:53
Chloride 103 mmol/L (98-107) 06/28/24 03:53
Carbon Dioxide 22 mmol/L (22-30) 06/28/24 03:53
BUN 64 mg/dl (7-17) H 06/28/24 03:53
Creatinine 1.9 mg/dL (0.6-1.0) H 06/28/24 03:53
eGFR 25.24 06/28/24 03:53
Glucose 132 mg/dl (70-99) H 06/28/24 03:53
Calcium 8.5 mg/dl (8.4-10.2) 06/28/24 03:53
Vjd-I-Mgumgbegkel Pept 4230 pg/ml 06/25/24 09:15
Albumin 3.2 g/dl (3.5-5.0) L 06/26/24 03:37
Physical Exam
-
Vital Signs:
Vital Signs
Temp Pulse Resp BP Pulse Ox
97.8 F 76 20 110/52 97
06/28/24 15:29 06/28/24 15:29 06/28/24 15:29 06/28/24 15:29 06/28/24 15:29
Cardiovascular:: Regular rate and rhythm
Respiratory:: Bilateral: CTA
Lung Excursion:: Normal
Abdomen:: Nontender and Soft
Extremity Edema:: None: Bilateral:
Prieto Catheter: No
[2024-06-28 17:03] LABS: Glucose - Point of Care 210 mg/dl (70-99)
[2024-06-28] MEDS: NOVOLOG FLEXPEN-HIGH RESISTANCE 4 UNITS SC (18:26)
[2024-06-28] MEDS: NSS 1000 IV (18:27)
[2024-06-28 21:29] LABS: Glucose - Point of Care 216 mg/dl (70-99)
[2024-06-28] MEDS: AMBIEN 5 MG PO (21:46)
[2024-06-28] MEDS: LANTUS 0.4 UNITS SC (21:46)
[2024-06-28] MEDS: OFIRMEV 100 IV (22:27)
[2024-06-29] VITALS (7 sets, daily range): BP systolic 131–184; BP diastolic 65–79; BMI 38.4
[2024-06-29 03:54] LABS: % Basophils 0.2 % (0-2); % Eosinophils 0.2 % (0-6); % Immature Granulocytes 0.6 % (0-0.5); % Lymphocytes 19.8 % (20.5-51.1); % Monocytes 9.4 % (1.7-9.3); % Neutrophils 69.8 % (42.2-75.2); Absolute Lymphocytes 1.2 10^3/uL (1.2-3.4); Absolute Monocytes 0.6 10^3/uL (0.1-0.6); Absolute Neutrophils 4.4 10^3/uL (1.4-6.5); Hematocrit 26.1 % (37.0-47.0); Hemoglobin 8.6 g/dL (12.0-16.0); Mean Corpuscular Hgb 29.4 pg (27.0-31.0); Mean Corpuscular Volume 89.1 fL (81.0-99.0); Mean Platelet Volume 8.6 fL (7.4-10.4); Nucleated Red Blood Cells % 0 %; Platelet Count 265 10^3/uL (130-400); Red Blood Cell Count 2.93 10^6/uL (4.20-5.40); Red Cell Dist. Width 15.9 % (11.5-14.5); White Blood Cell Count 6.3 10^3/uL (4.8-10.8)
[2024-06-29 04:20] LABS: Blood Urea Nitrogen 63 mg/dl (7-17); Calcium 8.2 mg/dl (8.4-10.2); Carbon Dioxide 23 mmol/L (22-30); Chloride 106 mmol/L (98-107); Estimated Creatinine Clearance 22 ml/min; Glucose 129 mg/dl (70-99); Potassium 4.6 mmol/L (3.5-5.1); Sodium 136 mmol/L (135-145); eGFR 26.93
[2024-06-29] MEDS: SYNTHROID 88 MCG PO (05:38)
[2024-06-29] MEDS: NSS IV ×2 (05:38→09:25)
[2024-06-29] MEDS: ULTRAM 50 MG PO (05:59)
[2024-06-29 07:47] LABS: Glucose - Point of Care 105 mg/dl (70-99)
[2024-06-29] MEDS: VENTOLIN NEBULES 2.5 MG INH ×3 (08:31→20:44)
[2024-06-29] MEDS: SODIUM CHLORIDE 3% FOR INHALATION 1 VIAL INH ×3 (08:31→20:44)
[2024-06-29] MEDS: DELTASONE 20 MG PO (08:52)
[2024-06-29] MEDS: ELIQUIS 10 MG PO ×2 (08:52→19:54)
[2024-06-29] MEDS: MUCINEX 1200 MG PO (08:52)
[2024-06-29] MEDS: PROCARDIA XL (EXTENDED RELEASE) 30 MG PO (08:52)
[2024-06-29] MEDS: ZYLOPRIM 50 MG PO (08:53)
[2024-06-29] MEDS: NOVOLOG FLEXPEN 7 UNITS SC ×2 (08:53→17:10)
[2024-06-29] MEDS: NOVOLOG FLEXPEN-HIGH RESISTANCE 1 UNITS SC ×2 (08:54→13:16)
--- NOTE | 2024-06-29 09:04 | W.PN.HOSP.TC ---
Today's Communication/Plan
-
.
Assessment / Plan
Assessment / Plan
Encounter through language line 2/6
physical Exam
General: not in respiratory Distress, no Stridor heard, Obese
HEENT: Moist mucous membranes and Atraumatic
Respiratory: Decreased Breath Sounds, no wheezes.
Cardiac: S1/S2
GI: Soft and Non Tender
Rectal: No Maroon Stools
Genito-urinary: Clear Urine
Musculoskeletal: No Cyanosis
Skin: No Jaundice
Neuro: Oriented and Other (She follows simple commands)
Psych: Anxious; No Agitated
89 years old female presented with sore throat and respiratory distress
# Right arm weakness/ numbness
She woke up feeling inability to move the right arm with numbness
No other neurological deficits noted
Likely pressure nerve injury with already existing edema from broken humerus exacerbated by sleeping on it over night
She is already on Eliquis [place] for PE
Will consult neurology
# Oniel
Seems creatinine to stabilize
s/p IVF, edema noted, will hold further IVF
No flank pain or retention per bladder scan protocol
Could be related to viral syndrome or medication induced ( she received Vancomycin and penicillin)
ONIEL consistent with acute tubular necrosis
Stopped vancomycin and amoxicillin
Urine test showed cloudy urine, await culture
Normal urine creatinine, low urine sodium, negative urine eosinophils,
No obstruction on renal US
No need for more IVF
Changed medications doses to renally appropriate, discussed with pharmacist.
Consulted nephrology, appreciate input.
#History of Sore throat
Acute laryngitis
Stridor and respiratory distress : resolved. Not hypoxic.
Negative COVID and influenza screen, cannot rule out other viral infection. Negative Legionella and Streptococcus antigens.
Chest radiography did not show definitive infiltrate.
CT scan of the chest, no pneumonia. Neck without contrast, no obstructive lesion.
s/p IV steroid,finished oral prednisone, low-dose Benadryl PRN. 3 % nasal nebulizer Q TID
s/p antibiotics given.
She is tolerating regular diet
Appreciate ENT, pulmonary and ID help
# history of diabetes.
will decrease Lantus dose while off Steroid now
Continue with insulin sliding scale
#History of essential hypertension
Continue medications from home,
# drop in HGB, suspect dilutional with anemia of acute blood loss ( recent fracture)
Stable HGB
# Gout, c/w allopurinol. Adjusted the dose.
# History of hypothyroidism,
#Recent right shoulder injury/humeral fracture. c/w PRN Tramadol & Tylenol.
X ray was reviewed with orthopedic doctor telephone collector, recommended to use sling, can come off as tolerated.
# Patient was on Keppra. d/w family, was given to her pre-intubation , daughter felt it was panic attack more than seizure or respiratory problem and requested to be stopped, dc Keppra, no seizures noted.
# History of pulmonary embolism. will continue Eliquis for now, on loading schedule now, d/w pharmacist.
# Hyperlipidemia, no changes intended
#Obesity,
Total time spent to see the patient, examine the patient, review data and lab results, discuss treatment plan with patient, daughter and nursing staff around 59 minutes
Anticipated Discharge: 24 - 48 hours
Subjective/Interval History
-
Date of Service: June 29, 2024
Complains of numbness on right arm
Objective Data
-
Labs:
Laboratory Results
06/29/24
03:33
WBC 6.3
Hgb 8.6 L
Hct 26.1 L
Plt Count 265
Sodium 136
Potassium 4.6
Chloride 106
Carbon Dioxide 23
BUN 63 H
Creatinine 1.8 H
Glucose 129 H
Calcium 8.2 L
Vital Signs:
Vital Signs
Temp Pulse Resp BP Pulse Ox
98.9 F 75 16 184/73 99
06/29/24 07:22 06/29/24 08:32 06/29/24 08:32 06/29/24 07:22 06/29/24 08:32
I&O
06/28/24 06/29/24 06/30/24
06:59 06:59 06:59
Intake Total 360 / 360 1919
Balance 360 / 360 1919
--- NOTE | 2024-06-29 09:15 | CON.NEURO ---
Neuro Assessment/Plan
Assessment
Acute onset right arm weakness; patient denies this problem currently, reports that dysfunction has been ongoing for several weeks since fracture of the arm took place
Plan
Agree with orthopedic evaluation
DVT prophylaxis
Consider physical therapy evaluation and treatment
Will follow as needed
Consultation
Order
Date of Consultation: 06/29/24
Requesting Provider: Hospitalist
Reason for Consult: Right upper extremity weakness
Subjective/Objective
Subjective Data
Date of Service: June 29, 2024
Right handed
Patient presented to this hospital's emergency department on June 25, 2024 from a rehabilitation facility. The patient was placed in the rehabilitation facility due to respiratory failure following right shoulder dislocation/proximal humerus
fracture which followed mechanical fall. The patient again developed dyspnea leading to presentation to this hospital's emergency department.
The patient then developed acute renal insufficiency and respiratory distress resolved. Of note is that the patient arrived to this hospital on levetiracetam which was discontinued during this hospitalization.
Despite previously mentioning to the patient's hospitalist that she was experiencing difficulty with lifting the right upper extremity which was acute, the patient now denies this. She does not feel that there has been any change in her right upper
extremity function over the course of several weeks. No known associated symptoms.
Objective Data
Vital Signs
Temp Pulse Resp BP Pulse Ox
37.2 C 75 16 184/73 99
06/29/24 07:22 06/29/24 08:32 06/29/24 08:32 06/29/24 07:22 06/29/24 08:32
Lab Results
06/29/24 03:33
06/29/24 03:33
Sodium 136 mmol/L (135-145) 06/29/24 03:33
Potassium 4.6 mmol/L (3.5-5.1) 06/29/24 03:33
BUN 63 mg/dl (7-17) H 06/29/24 03:33
Glucose 129 mg/dl (70-99) H 06/29/24 03:33
Calcium 8.2 mg/dl (8.4-10.2) L 06/29/24 03:33
Qgk-L-Etjqqtcrcze Pept 4230 pg/ml 06/25/24 09:15
Patient Allergies
clopidogrel [From Plavix] Allergy (Unknown, Verified 06/25/24 04:06)
Unknown
Iodinated Contrast Media Allergy (Unknown, Verified 06/25/24 04:06)
Unknown
metronidazole Allergy (Unknown, Verified 06/25/24 04:06)
Unknown
morphine Allergy (Verified 06/25/24 11:46)
itching and reddness, slight shortness of breath
Review of Systems
-
Unable to obtain full review of systems at this time due to: Language Barrier
History Source: Patient
All other systems: Reviewed and negative
Neuro: Negative Weakness
Physical Exam
-
General: No Apparent Distress and Appears Stated Age
Eyes: Round OU, Dane Conjunctivae and No Ptosis
HEENT: Anicteric and Moist Mucous Membranes
Neck: Full Range of Motion
Respiratory: No Dyspnea
Cardiac: No JVD
GI: Non-distended
Extremities: No Clubbing, No Cyanosis and No Edema
Psych: Intact Judgement/Insight
Extended Neurological Exam
Mood & Affect: Mood Unremarkable and Affect Unremarkable
Attention Span & Concentration: Awake, Alert, Interactive and No Difficulty with 2 Step Request
Memory: Unremarkable
Tremor: Hand Tremor Absent and Head Tremor Absent
Speech: Quality Unremarkable (In Cypriot only) and Quantity Unremarkable
Cranial Nerve II: Left Eye: Pupillary Size Unremarkable and Visual Jeronimo Intact
Cranial Nerve II: Right Eye: Pupillary Size Unremarkable and Visual Jeronimo Intact
Cranial Nerves III, IV, : Extraocular Movement: Extraocular Movement Full in all Directions
Cranial Nerve VII: Facial Symmetry: Normal Facial Symmetry
Cranial Nerve VIII: Hearing: Unremarkable Hearing to Normal Conversational Volume
Cranial Nerve XI: Shoulder Shrug: Unremarkable
Muscle Strength, Overall: Otherwise Intact and Other (Minimal movement right upper extremity distally and proximally; minimal movement bilateral lower extremities)
Muscle Bulk & Tone: Bulk Unremarkable and Tone Unremarkable
Pronator Drift: Unable to Assess (Right upper extremity); Negative Drift in Left Upper Extremity
Deep Tendon Reflexes: Absent Throughout and Other (Unable to assess right biceps)
Touch Sensation: Unremarkable
Coordination: Reteoy-jemr-mbkcwq Testing Unremarkable (Using left upper extremity)
Babinski Sign: Absent Bilaterally
Gait & Station: Unable to Assess
Data Reviewed
-
Labs: Report Reviewed
Reviewed with: Physician, Patient and Family (Who provided translation)
Old Records: Summarized
Medications
-
Active Medications
Generic Name Dose Route Start Last Admin
Trade Name Freq PRN Reason Stop Dose Admin
Albuterol Sulfate 2.5 mg 06/25/24 16:06 06/29/24 08:31
Albuterol Nebs 2.5 Mg/3 Ml Ampul INH 2.5 mg
R Q4HPRN PRN Administration
wheezes,sob
Protocol
Allopurinol 50 mg 06/29/24 08:00 06/29/24 08:53
Allopurinol 100 Mg Tablet PO 07/27/24 07:59 50 mg
Q48H JESSICA Administration
Apixaban 10 mg 06/27/24 10:45 06/29/24 08:52
Apixaban (Eliquis) 5 Mg Tablet PO 06/29/24 20:01 10 mg
BID JESSICA Administration
Apixaban 5 mg 06/30/24 08:00
Apixaban (Eliquis) 5 Mg Tablet PO 07/28/24 07:59
BID JESSICA
Dextrose 12.5 grams 06/25/24 11:57
Dextrose 50% (0.5 Grams/Ml) 50 Ml Syringe IV 07/23/24 11:56
[id number] PRN
hypoglycemia
Protocol
Diphenhydramine HCl 12.5 mg 06/25/24 15:52
Diphenhydramine 50 Mg/Ml 1 Ml Vial IV 07/23/24 15:51
Q4HPRN PRN
itching, rash,allergies
Glucagon 1 mg 06/25/24 11:57
Glucagon 1 Mg Vial IM 07/23/24 11:56
PRN PRN
hypoglycemia
Protocol
Hydralazine HCl 5 mg 06/25/24 16:29 06/26/24 01:04
Hydralazine 20 Mg/Ml Vial IV 07/23/24 16:28 5 mg
Q4HPRN PRN Administration
sbp more than 155
Insulin Glargine 40 units/ 0.4 mls @ 0 mls/hr 06/26/24 18:43 06/28/24 21:46
Device SC 07/23/24 17:59 0.4 mls
HS JESSICA Administration
As Directed
Sodium Chloride 1,000 mls @ 60 mls/hr 06/28/24 16:15 06/28/24 18:27
Nss IV 1,000 mls
.[id number] JESSICA Administration
Insulin Aspart 7 units 06/26/24 11:30 06/29/24 08:53
Insulin Aspart (100 Units/Ml) 3 Ml Flexpen SC 07/24/24 11:29 7 units
AC JESSICA Administration
Insulin Aspart 0 units 06/27/24 16:30 06/29/24 08:54
Insulin Aspart High Resistance 300 Units/3 Ml Pen.Injctr SC 07/25/24 16:29 1 units
AC JESSICA Administration
Protocol
Levothyroxine Sodium 88 mcg 06/26/24 06:00 06/29/24 05:38
Levothyroxine 88 Mcg Tablet PO 07/24/24 05:59 88 mcg
DAILY @ 0600 JESSICA Administration
Lorazepam 0.25 mg 06/25/24 16:29
Lorazepam 2 Mg/Ml Vial IV 07/23/24 16:28
Q8HPRN PRN
panic attack,severe anxiety
Metoprolol Tartrate 50 mg 06/25/24 20:00 06/27/24 09:04
Metoprolol 50 Mg Regular Release Tablet PO 07/23/24 19:59 Not Given
BID JESSICA
Nifedipine 30 mg 06/26/24 11:00 06/29/24 08:52
Nifedipine 30 Mg Extended Release Tablet PO 07/24/24 10:59 30 mg
DAILY JESSICA Administration
Prednisone 20 mg 06/27/24 08:00 06/29/24 08:52
Prednisone 20 Mg Tablet PO 07/25/24 07:59 20 mg
DAILY JESSICA Administration
Sodium Chloride 0 flush 06/25/24 13:00
Sodium Chloride 0.9% (Flush) Syringe IV 07/23/24 12:59
PER PROTOCOL JESSICA
Sodium Chloride 0 ml 06/25/24 17:00
Sodium Chloride 0.9% (Preservative Free) 10 Ml Vial IV 07/23/24 16:59
PRN PRN
IV Lorazepam dilution
Protocol
Sodium Chloride 1 vial 06/26/24 20:00 06/29/24 08:31
Sodium Chloride 3% For Inhalation 4 Ml Vial INH 1 vial
R TID JESSICA Administration
Tramadol HCl 50 mg 06/25/24 16:33 06/29/24 05:59
Tramadol Hcl 50 Mg Tablet PO 07/23/24 16:32 50 mg
Q6HPRN PRN Administration
severe pain
Zolpidem Tartrate 5 mg 06/28/24 22:00 06/28/24 21:46
Zolpidem Tartrate 5 Mg Tablet PO 07/26/24 21:59 5 mg
HS JESSICA Administration
Home Medications
�Medication �Instructions �Recorded
acetaminophen 325 mg tablet 650 mg PO Q6H PRN temp>100.4, mild 06/25/24
(Tylenol) pain
albuterol sulfate 2.5 mg/3 mL 2.5 mg inhalation Q6H wheezing 06/25/24
(0.083 %) solution for nebulization
albuterol sulfate 2.5 mg/3 mL 2.5 mg inhalation QID 06/25/24
(0.083 %) solution for nebulization
apixaban 5 mg tablet (Eliquis) See Rx Instructions .Route 06/25/24
.COMPLEX pulm embolism
atorvastatin 80 mg tablet 80 mg PO HS 06/25/24
bisacodyl 10 mg rectal suppository 10 mg W[place] DAILY PRN constipation, 06/25/24
if MOM ineffective
buspirone 5 mg tablet 5 mg PO DAILY 06/25/24
cholecalciferol (vitamin D3) 125 125 mcg PO DAILY 06/25/24
mcg (5,000 unit) capsule
clotrimazole-betamethasone 1 1 applic topical BID affected area 06/25/24
%-0.05 % topical cream
dexlansoprazole 30 mg 60 mg PO DAILY 06/25/24
capsule,biphase delayed release
insulin glargine 100 unit/mL (3 20 unit SC HS 06/25/24
mL) subcutaneous pen (Lantus
Solostar U-100 Insulin)
insulin lispro 100 unit/mL 0 - 10 unit SC .SLIDING SCALE AC 06/25/24
subcutaneous pen
insulin lispro 100 unit/mL 3 unit SC AC 06/25/24
subcutaneous pen
levetiracetam 250 mg tablet 250 mg PO BID seizure prevention 06/25/24
levothyroxine 88 mcg tablet 88 mcg PO DAILY 06/25/24
magnesium hydroxide 400 mg/5 mL 2,400 mg PO HSPRN PRN no BM x 3 06/25/24
oral suspension (Milk of Magnesia) days
meclizine 12.5 mg tablet 12.5 mg PO DAILYPRN PRN dizzyness 06/25/24
melatonin 5 mg tablet 5 mg PO HS 06/25/24
metoprolol tartrate 50 mg tablet 50 mg PO BID 06/25/24
montelukast 10 mg tablet 10 mg PO DAILY 06/25/24
polyethylene glycol 3350 17 gram 17 g PO DAILY Constipation 06/25/24
oral powder packet (Miralax)
sennosides 8.6 mg tablet (Senokot) 17.2 mg PO HS 06/25/24
sodium chloride 0.65 % nasal spray 2 spray intranasal Q2H PRN 06/25/24
aerosol congestion
ticagrelor 90 mg tablet (Brilinta) 90 mg PO BID Blood Clot 06/25/24
Prevention/Tx
tramadol 50 mg tablet 50 mg PO Q6HPRN PRN severe pain 06/25/24
Past History
Past History
ED Past Medical History: CAD, Cancer, GERD, HTN, Hypercholesterolemia, NIDDM, [place], Hypothyroidism and Other (Pulmonary embolism, acute renal insufficiency, gout, obesity, right upper extremity fracture)
ED Past Surgical History: None
Social History
Tobacco: Former smoker
Alcohol: None
Drug: None
Living: with family
Family History
Family History: Other (Reviewed and noncontributory)
--- NOTE | 2024-06-29 10:31 | W.PN.NEPH.PH ---
Today's Communication / Plan
-
Observe follow BMP
Currently maintained on nifedipine and as needed hydralazine for blood pressure
No need for further IV fluids
Assessment/Plan
-
IMP:
Oniel
History of Sore throat
Acute laryngitis
Stridor and respiratory distress : resolved
mild hyponatremia
history of diabetes.
History of essential hypertension
Anemia
Gout
History of hypothyroidism
Recent right shoulder injury/humeral fracture
History of pulmonary embolism
Hyperlipidemia
Obesity
Plan:
Creatinine unchanged at 1.8
Urine output not recorded
A/w URI symp, laryngitis
ONIEL-no clear etiology, UA -ITI sample, await cx, Fena not low
bladder scan 266cc, neg U eosinophils
renal US non acute with out hydro
Hemodynamically labile with blood pressures oscillating between 110-180 for cystoscopy
Hyponatremia improved
avoid nephrotoxins
d/w pt
-
-
Date of Service: June 29, 2024
CC / HPI / ROS
-
Chief Complaint:
ONIEL
History of Present Illness:
cr at 1 point, UOP not recorded
BP all over the place
no fever,
Review of Systems:
no dizzy today
no cp or sob
no n/v
pain in right shoulder
Labs
-
Labs:
WBC 6.3 10^3/uL (4.8-10.8) 06/29/24 03:33
RBC 2.93 10^6/uL (4.20-5.40) L 06/29/24 03:33
Hgb 8.6 g/dL (12.0-16.0) L 06/29/24 03:33
Hct 26.1 % (37.0-47.0) L 06/29/24 03:33
Plt Count 265 10^3/uL (130-400) 06/29/24 03:33
Sodium 136 mmol/L (135-145) 06/29/24 03:33
Potassium 4.6 mmol/L (3.5-5.1) 06/29/24 03:33
Chloride 106 mmol/L (98-107) 06/29/24 03:33
Carbon Dioxide 23 mmol/L (22-30) 06/29/24 03:33
BUN 63 mg/dl (7-17) H 06/29/24 03:33
Creatinine 1.8 mg/dL (0.6-1.0) H 06/29/24 03:33
eGFR 26.93 06/29/24 03:33
Glucose 129 mg/dl (70-99) H 06/29/24 03:33
Calcium 8.2 mg/dl (8.4-10.2) L 06/29/24 03:33
Buh-F-Hghotuexigs Pept 4230 pg/ml 06/25/24 09:15
Albumin 3.2 g/dl (3.5-5.0) L 06/26/24 03:37
Physical Exam
-
Vital Signs:
Vital Signs
Temp Pulse Resp BP Pulse Ox
98.9 F 75 16 184/73 99
06/29/24 07:22 06/29/24 08:32 06/29/24 08:32 06/29/24 07:22 06/29/24 08:32
Cardiovascular:: Regular rate and rhythm
Respiratory:: Bilateral: CTA
Lung Excursion:: Normal
Abdomen:: Nontender and Soft
Extremity Edema:: None: Bilateral:
Prieto Catheter: No
[2024-06-29] MEDS: APRESOLINE 5 MG IV (11:03)
[2024-06-29 11:10] LABS: Glucose - Point of Care 132 mg/dl (70-99)
[2024-06-29] MEDS: NOVOLOG FLEXPEN SC (13:15)
[2024-06-29 15:28] LABS: Glucose - Point of Care 275 mg/dl (70-99)
[2024-06-29] MEDS: NOVOLOG FLEXPEN-HIGH RESISTANCE 7 UNITS SC (17:10)
[2024-06-29] MEDS: ATIVAN 0.25 MG IV (21:18)
[2024-06-29] MEDS: AMBIEN 5 MG PO (21:58)
[2024-06-29] MEDS: LANTUS 0.25 UNITS SC (22:02)
[2024-06-29 22:06] LABS: Glucose - Point of Care 242 mg/dl (70-99)
[2024-06-30] MEDS: ULTRAM 50 MG PO ×3 (00:48→21:56)
[2024-06-30 02:57] VITALS: BP 150/73
[2024-06-30] MEDS: SYNTHROID 88 MCG PO (04:51)
[2024-06-30 05:39] LABS: Blood Urea Nitrogen 55 mg/dl (7-17); Carbon Dioxide 25 mmol/L (22-30); Chloride 105 mmol/L (98-107); Estimated Creatinine Clearance 25 ml/min; Glucose 148 mg/dl (70-99); Potassium 4.4 mmol/L (3.5-5.1); Sodium 136 mmol/L (135-145); eGFR 31.02
[2024-06-30 06:00] VITALS: BMI 37.6
[2024-06-30 07:00] VITALS: BP 168/71
[2024-06-30 07:31] LABS: Glucose - Point of Care 143 mg/dl (70-99)
[2024-06-30] MEDS: NOVOLOG FLEXPEN 7 UNITS SC ×3 (08:42→16:55)
[2024-06-30] MEDS: NOVOLOG FLEXPEN-HIGH RESISTANCE 1 UNITS SC (08:42)
[2024-06-30] MEDS: ELIQUIS 5 MG PO ×2 (08:42→19:40)
[2024-06-30] MEDS: DELTASONE 20 MG PO (08:44)
[2024-06-30] MEDS: PROCARDIA XL (EXTENDED RELEASE) 30 MG PO (08:44)
--- NOTE | 2024-06-30 08:52 | W.PN.HOSP.TC ---
Today's Communication/Plan
-
dc planning
Assessment / Plan
Assessment / Plan
Encounter through language line daily
physical Exam
General: not in respiratory Distress, no Stridor heard, Obese
HEENT: Moist mucous membranes and Atraumatic
Respiratory: Decreased Breath Sounds, no wheezes.
Cardiac: S1/S2
GI: Soft and Non Tender
Rectal: No Maroon Stools
Genito-urinary: Clear Urine
Musculoskeletal: No Cyanosis
Skin: No Jaundice
Neuro: Oriented and Other (She follows simple commands)
Psych: Anxious; No Agitated
89 years old female presented with sore throat and respiratory distress
# Right arm weakness/ numbness
She woke up feeling inability to move the right arm with numbness
No other neurological deficits noted
Likely pressure nerve injury with already existing edema from broken humerus exacerbated by sleeping on it over night
She is already on Eliquis [place] for PE
Will consult neurology
# Oniel
Seems creatinine to stabilize
s/p IVF, edema noted, stopped IVF
No flank pain or retention per bladder scan protocol
Could be related to viral syndrome or medication induced ( she received Vancomycin and penicillin)
ONIEL consistent with acute tubular necrosis
Stopped vancomycin and amoxicillin
Urine test showed cloudy urine, await culture
Normal urine creatinine, low urine sodium, negative urine eosinophils,
No obstruction on renal US
No need for more IVF
Changed medications doses to renally appropriate, discussed with pharmacist.
Consulted nephrology, appreciate input.
#History of Sore throat
Acute laryngitis
Stridor and respiratory distress : resolved. Not hypoxic.
Negative COVID and influenza screen, cannot rule out other viral infection. Negative Legionella and Streptococcus antigens.
Chest radiography did not show definitive infiltrate.
CT scan of the chest, no pneumonia. Neck without contrast, no obstructive lesion.
s/p IV steroid,finished oral prednisone, low-dose Benadryl PRN. 3 % nasal nebulizer Q TID
s/p antibiotics given.
She is tolerating regular diet
Appreciate ENT, pulmonary and ID help
# history of diabetes.
will decrease Lantus dose while off Steroid now
Continue with insulin sliding scale
#History of essential hypertension
Continue medications from home,
# drop in HGB, suspect dilutional with anemia of acute blood loss ( recent fracture)
Stable HGB
# Gout, c/w allopurinol. Adjusted the dose today.
# History of hypothyroidism,
#Recent right shoulder injury/humeral fracture. c/w PRN Tramadol & Tylenol.
X ray was reviewed with orthopedic doctor hall monitor, recommended to use sling, can come off as tolerated.
# Patient was on Keppra. d/w family, was given to her pre-intubation , daughter felt it was panic attack more than seizure or respiratory problem and requested to be stopped, dc Keppra, no seizures noted.
# History of pulmonary embolism. C/W Eliquis for now, s/p loading schedule now, d/w pharmacist.
# Hyperlipidemia, no changes intended
#Obesity,
# Chronic insomnia
Back on Ambien
Total time spent to see the patient, examine the patient, review data and lab results, discuss treatment plan with patient, daughter and nursing staff around 59 minutes
Anticipated Discharge: Within 24 hours
Subjective/Interval History
-
Date of Service: June 30, 2024
No chest pain
No sob
No sore throat
Same discomfort in right shoulder
Objective Data
-
Labs:
Laboratory Results
06/30/24
04:23
Sodium 136
Potassium 4.4
Chloride 105
Carbon Dioxide 25
BUN 55 H
Creatinine 1.6 H
Glucose 148 H
Calcium 9.0
Vital Signs:
Vital Signs
Temp Pulse Resp BP Pulse Ox
98.2 F 76 18 150/73 98
06/30/24 02:57 06/30/24 02:57 06/30/24 02:57 06/30/24 02:57 06/30/24 02:57
I&O
06/29/24 06/30/24 07/01/24
06:59 06:59 06:59
Intake Total 1919 840 / 840
Balance 1919 840 / 840
[2024-06-30] MEDS: VENTOLIN NEBULES 2.5 MG INH ×2 (09:03→13:10)
[2024-06-30] MEDS: SODIUM CHLORIDE 3% FOR INHALATION 1 VIAL INH ×3 (09:03→19:24)
--- NOTE | 2024-06-30 09:35 | W.PN.NEPH.PH ---
Today's Communication / Plan
-
Hemodynamically stable
Creatinine improving to 1.6
Follow BMP
Assessment/Plan
-
IMP:
Oniel
History of Sore throat
Acute laryngitis
Stridor and respiratory distress : resolved
mild hyponatremia
history of diabetes.
History of essential hypertension
Anemia
Gout
History of hypothyroidism
Recent right shoulder injury/humeral fracture
History of pulmonary embolism
Hyperlipidemia
Obesity
Plan:
Creatinine improving to 1.6
Urine output not recorded
A/w URI symp, laryngitis
ONIEL-no clear etiology, UA -ITI sample, Fena not low
bladder scan 266cc, neg U eosinophils
renal US non acute with out hydronephrosis
Hyponatremia improved
avoid nephrotoxins
-
-
Date of Service: June 30, 2024
CC / HPI / ROS
-
Chief Complaint:
ONIEL
History of Present Illness:
cr at 1.6t, UOP not recorded
BP elevating
no fever,
Review of Systems:
no dizzy today
no cp or sob
no n/v
pain in right shoulder
Labs
-
Labs:
WBC 6.3 10^3/uL (4.8-10.8) 06/29/24 03:33
RBC 2.93 10^6/uL (4.20-5.40) L 06/29/24 03:33
Hgb 8.6 g/dL (12.0-16.0) L 06/29/24 03:33
Hct 26.1 % (37.0-47.0) L 06/29/24 03:33
Plt Count 265 10^3/uL (130-400) 06/29/24 03:33
Sodium 136 mmol/L (135-145) 06/30/24 04:23
Potassium 4.4 mmol/L (3.5-5.1) 06/30/24 04:23
Chloride 105 mmol/L (98-107) 06/30/24 04:23
Carbon Dioxide 25 mmol/L (22-30) 06/30/24 04:23
BUN 55 mg/dl (7-17) H 06/30/24 04:23
Creatinine 1.6 mg/dL (0.6-1.0) H 06/30/24 04:23
eGFR 31.02 06/30/24 04:23
Glucose 148 mg/dl (70-99) H 06/30/24 04:23
Calcium 9.0 mg/dl (8.4-10.2) 06/30/24 04:23
Fun-J-Jlkiyzcyvxm Pept 4230 pg/ml 06/25/24 09:15
Albumin 3.2 g/dl (3.5-5.0) L 06/26/24 03:37
Physical Exam
-
Vital Signs:
Vital Signs
Temp Pulse Resp BP Pulse Ox
98.2 F 78 16 168/71 97
06/30/24 07:00 06/30/24 09:06 06/30/24 09:06 06/30/24 08:44 06/30/24 09:06
Cardiovascular:: Regular rate and rhythm
Respiratory:: Bilateral: CTA
Lung Excursion:: Normal
Abdomen:: Nontender and Soft
Extremity Edema:: None: Bilateral:
Prieto Catheter: No
[2024-06-30 11:00] VITALS: BP 151/64
[2024-06-30 12:38] LABS: Glucose - Point of Care 256 mg/dl (70-99)
[2024-06-30] MEDS: NOVOLOG FLEXPEN-HIGH RESISTANCE 7 UNITS SC ×2 (12:38→16:56)
--- NOTE | 2024-06-30 13:52 | CM ---
breakfast manager reviewed patient's chart and spoke with patient's daughter and per daughter plan is for patient to return to [facility] when stable, no Auth is required.
Plan; [facility]
Report [phone],
.
[2024-06-30 15:00] VITALS: BP 165/69
[2024-06-30] MEDS: ATIVAN 0.25 MG IV (16:29)
[2024-06-30] MEDS: NSS (PRESERVATIVE FREE) 0.125 ML IV (16:29)
--- NOTE | 2024-06-30 16:38 | PTCARENOTE ---
pt with heart rate up to 140. pt found to be having anxiety attack. Prn Ativan 0.25mg IV given per orders. within 5 minutes heart rate was down to 80s. emotional support provided
[2024-06-30 16:54] LABS: Glucose - Point of Care 280 mg/dl (70-99)
[2024-06-30] MEDS: ATIVAN 0.5 MG PO (19:40)
[2024-06-30 19:48] VITALS: BP 177/77
[2024-06-30 21:21] LABS: Glucose - Point of Care 189 mg/dl (70-99)
[2024-06-30] MEDS: LANTUS 0.25 UNITS SC (21:56)
[2024-06-30] MEDS: AMBIEN 5 MG PO (21:57)
[2024-06-30] MEDS: APRESOLINE 5 MG IV (23:14)
[2024-06-30 23:53] VITALS: BP 164/65
[2024-07-01 03:56] VITALS: BP 162/67
[2024-07-01] MEDS: APRESOLINE 5 MG IV ×2 (03:57→23:51)
[2024-07-01] MEDS: SYNTHROID 88 MCG PO (05:29)
[2024-07-01 06:00] VITALS: BMI 37.5
[2024-07-01 06:40] LABS: Blood Urea Nitrogen 51 mg/dl (7-17); Calcium 9.3 mg/dl (8.4-10.2); Carbon Dioxide 25 mmol/L (22-30); Chloride 104 mmol/L (98-107); Estimated Creatinine Clearance 26 ml/min; Glucose 110 mg/dl (70-99); Potassium 4.2 mmol/L (3.5-5.1); Sodium 138 mmol/L (135-145); eGFR 33.52
[2024-07-01 07:00] VITALS: BP 165/52
[2024-07-01 07:33] LABS: Glucose - Point of Care 113 mg/dl (70-99)
[2024-07-01] MEDS: SODIUM CHLORIDE 3% FOR INHALATION INH (08:47)
[2024-07-01] MEDS: ZYLOPRIM 50 MG PO (08:53)
[2024-07-01] MEDS: PROTONIX 40 MG PO (08:53)
[2024-07-01] MEDS: ELIQUIS 5 MG PO ×2 (08:53→20:18)
[2024-07-01] MEDS: PROCARDIA XL (EXTENDED RELEASE) 30 MG PO (08:54)
[2024-07-01] MEDS: NOVOLOG FLEXPEN 7 UNITS SC ×3 (08:54→17:01)
[2024-07-01] MEDS: NOVOLOG FLEXPEN-HIGH RESISTANCE 1 UNITS SC (08:55)
--- NOTE | 2024-07-01 10:10 | W.PN.HOSP.TC ---
Today's Communication/Plan
-
DC planning
Assessment / Plan
Assessment / Plan
Encounter through language line daily
physical Exam
General: not in respiratory Distress, no Stridor heard, Obese
HEENT: Moist mucous membranes and Atraumatic
Respiratory: Decreased Breath Sounds, no wheezes.
Cardiac: S1/S2
GI: Soft and Non Tender
Rectal: No Maroon Stools
Genito-urinary: Clear Urine
Musculoskeletal: No Cyanosis
Skin: No Jaundice
Neuro: Oriented and Other (She follows simple commands)
Psych: Anxious; No Agitated
# Pt presented with sore throat/ Stridor.
Acute laryngitis
Stridor and respiratory distress : resolved. Not hypoxic.
Negative COVID and influenza screen, likely viral infection. Negative Legionella and Streptococcus antigens.
Chest radiography did not show definitive infiltrate.
CT scan of the chest, no pneumonia. Neck without contrast, no obstructive lesion.
s/p IV steroid,finished oral prednisone, low-dose Benadryl PRN. Changed to PRN 3 % nasal nebulizer Q TID
s/p antibiotics given.
She is tolerating regular diet
Appreciate ENT, pulmonary and ID help
89 years old female presented with sore throat and respiratory distress
# Right arm weakness/ numbness due to radiculopathy
Improving
Advised to continue to move fingers and off the sling as tolerated.
No other neurological deficits noted
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
She is already on Eliquis [place] for PE
Seen by neurologist.
# Oniel
Seems creatinine to stabilize
s/p IVF, edema noted, stopped IVF
No flank pain or retention per bladder scan protocol
Could be related to viral syndrome or medication induced ( she received Vancomycin and penicillin)
ONIEL consistent with acute tubular necrosis
Stopped vancomycin and amoxicillin
Urine test showed cloudy urine, await culture
Normal urine creatinine, low urine sodium, negative urine eosinophils,
No obstruction on renal US
No need for more IVF
Changed medications doses to renally appropriate, discussed with pharmacist.
Consulted nephrology, appreciate input.
# history of diabetes.
Poorly controlled, HBG A1C 8.3.
Reduced Lantus dose while off Steroid now
Continue with insulin sliding scale & pre-meal.
#History of essential hypertension
Uncontrolled, increase dose of Nifedipine
c/w home dose of Metoprolol. PRN IV Hydralazine
# drop in HGB, suspect dilutional with anemia of acute blood loss ( recent fracture)
Stable HGB
# Gout, c/w allopurinol. Adjusted the dose today.
# History of hypothyroidism,
#Recent right shoulder injury/humeral fracture. c/w PRN Tramadol & Tylenol.
X ray was reviewed with orthopedic doctor bus and sys integration senior manager, recommended to use sling, can come off as tolerated.
# Patient was on Keppra. d/w family, was given to her pre-intubation , daughter felt it was panic attack more than seizure or respiratory problem and requested to be stopped, dc Keppra, no seizures noted.
# History of pulmonary embolism. C/W Eliquis for now, s/p loading schedule now, d/w pharmacist.
# Hyperlipidemia, no changes intended
#Obesity,
# Chronic insomnia
Back on Ambien
Total time spent to see the patient, examine the patient, review data and lab results, discuss treatment plan with patient, daughter and nursing staff around 59 minutes
Anticipated Discharge: Today
Subjective/Interval History
-
Date of Service: July 01, 2024
No new events
Noted to have panic attacks and responded to Ativan
Objective Data
-
Labs:
Laboratory Results
07/01/24
05:33
Sodium 138
Potassium 4.2
Chloride 104
Carbon Dioxide 25
BUN 51 H
Creatinine 1.5 H
Glucose 110 H
Calcium 9.3
Vital Signs:
Vital Signs
Temp Pulse Resp BP Pulse Ox
98.1 F 76 16 165/62 98
07/01/24 07:00 07/01/24 08:54 07/01/24 07:00 07/01/24 08:54 07/01/24 07:00
I&O
06/30/24 07/01/24 07/02/24
06:59 06:59 06:59
Intake Total 840 / 840 1120 / 1120
Balance 840 / 840 1120 / 1120
[2024-07-01 11:00] VITALS: BP 153/60
--- NOTE | 2024-07-01 11:03 | W.PN.NEPH.PH ---
Today's Communication / Plan
-
ONIEL continues to improve down to 1.5
Escalate nifedipine to 60 mg
Assessment/Plan
-
IMP:
Oniel
History of Sore throat
Acute laryngitis
Stridor and respiratory distress : resolved
mild hyponatremia
history of diabetes.
History of essential hypertension
Anemia
Gout
History of hypothyroidism
Recent right shoulder injury/humeral fracture
History of pulmonary embolism
Hyperlipidemia
Obesity
Plan:
Creatinine improving to 1.5
Urine output not recorded
A/w URI symp, laryngitis
ONIEL-no clear etiology, UA -ITI sample, Fena not low
bladder scan 266cc, neg U eosinophils
renal US non acute with out hydronephrosis
Hyponatremia improved
avoid nephrotoxins
-
-
Date of Service: July 01, 2024
CC / HPI / ROS
-
Chief Complaint:
ONIEL
History of Present Illness:
cr at 1.5,
BP up on nifedipine
no fever,
Review of Systems:
no dizzy today
no cp or sob
no n/v
Labs
-
Labs:
WBC 6.3 10^3/uL (4.8-10.8) 06/29/24 03:33
RBC 2.93 10^6/uL (4.20-5.40) L 06/29/24 03:33
Hgb 8.6 g/dL (12.0-16.0) L 06/29/24 03:33
Hct 26.1 % (37.0-47.0) L 06/29/24 03:33
Plt Count 265 10^3/uL (130-400) 06/29/24 03:33
Sodium 138 mmol/L (135-145) 07/01/24 05:33
Potassium 4.2 mmol/L (3.5-5.1) 07/01/24 05:33
Chloride 104 mmol/L (98-107) 07/01/24 05:33
Carbon Dioxide 25 mmol/L (22-30) 07/01/24 05:33
BUN 51 mg/dl (7-17) H 07/01/24 05:33
Creatinine 1.5 mg/dL (0.6-1.0) H 07/01/24 05:33
eGFR 33.52 07/01/24 05:33
Glucose 110 mg/dl (70-99) H 07/01/24 05:33
Calcium 9.3 mg/dl (8.4-10.2) 07/01/24 05:33
Tci-W-Onwwqxpguiw Pept 4230 pg/ml 06/25/24 09:15
Albumin 3.2 g/dl (3.5-5.0) L 06/26/24 03:37
Physical Exam
-
Vital Signs:
Vital Signs
Temp Pulse Resp BP Pulse Ox
98.1 F 76 16 165/62 98
07/01/24 07:00 07/01/24 08:54 07/01/24 07:00 07/01/24 08:54 07/01/24 07:00
Cardiovascular:: Regular rate and rhythm
Respiratory:: Bilateral: CTA
Lung Excursion:: Normal
Abdomen:: Nontender and Soft
Extremity Edema:: None: Bilateral:
Prieto Catheter: No
[2024-07-01 11:48] LABS: Glucose - Point of Care 171 mg/dl (70-99)
[2024-07-01] MEDS: NOVOLOG FLEXPEN-HIGH RESISTANCE 2 UNITS SC (12:16)
--- NOTE | 2024-07-01 14:56 | W.PN.UPDATE ---
Update Note
Progress Note Update
Addendum
There was major discrepancy between
Medications given upon arrival and home medications
I reviewed home medications with daughter.
Patient took certain medications before her recent admission to [facility].
-Apparently the patient was taking Brilinta for history of cardiac stent more than 3 years ago, her lifter driver kept her on Brilinta because she did not have side effects. She was also taking cilostazol for nonspecified circulation issue?.
Because the patient on Eliquis right now, we will do 81 mg of aspirin to avoid excessive risk of bleeding.
-Patient was taking pancreatic enzyme replacement, discussed with pharmacy, will substitute with Zenpep. No known history of pancreatic disease per family but she was on them for long time.
- Patient was also on metoprolol, triamterene and valsartan which we cannot resume because renal insufficiency, will keep treating with metoprolol and nifedipine for now.
- Patient was on lovastatin,low-dose at home.
Patient was not on BuSpar therapy which seem to be initiated at [facility]-. Discussed treatment of anxiety/panic disorder with the daughter. She would like to continue with Ativan for now and focus on making patient comfortable, it seems to be
helping her the most. Daughter aware of risk of dependency.
End
[2024-07-01 15:00] VITALS: BP 137/68
[2024-07-01] MEDS: ULTRAM 50 MG PO ×2 (15:16→21:31)
[2024-07-01 16:44] LABS: Glucose - Point of Care 212 mg/dl (70-99)
[2024-07-01] MEDS: NOVOLOG FLEXPEN-HIGH RESISTANCE 4 UNITS SC (17:02)
[2024-07-01] MEDS: ZENPEP DELAYED RELEASE CAPSULE 1 CAPSULE PO (17:02)
[2024-07-01 19:30] VITALS: BP 149/57
[2024-07-01 20:54] LABS: Glucose - Point of Care 174 mg/dl (70-99)
[2024-07-01] MEDS: LANTUS 0.25 UNITS SC (21:31)
[2024-07-01] MEDS: AMBIEN 5 MG PO (21:31)
[2024-07-01] MEDS: ATIVAN 0.5 MG PO (21:31)
[2024-07-01 23:36] VITALS: BP 161/63
[2024-07-02] VITALS (9 sets, daily range): BP systolic 112–161; BP diastolic 57–80; PULSE 121–146; O2SAT 97; BMI 37.2
[2024-07-02] MEDS: SYNTHROID 88 MCG PO (05:28)
[2024-07-02] MEDS: ULTRAM 50 MG PO ×2 (05:56→18:27)
[2024-07-02 07:35] LABS: Glucose - Point of Care 174 mg/dl (70-99)
[2024-07-02] MEDS: ZYLOPRIM 50 MG PO (09:14)
[2024-07-02] MEDS: ZENPEP DELAYED RELEASE CAPSULE 1 CAPSULE PO ×3 (09:14→17:30)
[2024-07-02] MEDS: LOW STRENGTH ASPIRIN 81 MG PO (09:14)
[2024-07-02] MEDS: PROCARDIA XL (EXTENDED RELEASE) 60 MG PO (09:14)
[2024-07-02] MEDS: ELIQUIS 5 MG PO ×2 (09:14→20:14)
[2024-07-02] MEDS: PROTONIX 40 MG PO (09:14)
[2024-07-02] MEDS: NOVOLOG FLEXPEN 7 UNITS SC ×3 (09:15→17:30)
[2024-07-02] MEDS: NOVOLOG FLEXPEN-HIGH RESISTANCE 2 UNITS SC ×2 (09:16→17:30)
[2024-07-02] MEDS: ATIVAN 0.25 MG IV (11:34)
[2024-07-02 11:35] LABS: Glucose - Point of Care 209 mg/dl (70-99)
--- NOTE | 2024-07-02 11:40 | W.PN.NEPH.PH ---
Today's Communication / Plan
-
Labs pending
Assessment/Plan
-
IMP:
Oniel
History of Sore throat
Acute laryngitis
Stridor and respiratory distress : resolved
mild hyponatremia
history of diabetes.
History of essential hypertension
Anemia
Gout
History of hypothyroidism
Recent right shoulder injury/humeral fracture
History of pulmonary embolism
Hyperlipidemia
Obesity
Plan:
0.9 on admission/creatinine improving to 1.5
Urine output not recorded
A/w URI symp, laryngitis
ONIEL-no clear etiology, UA -ITI sample, Fena not low
bladder scan 266cc, neg U eosinophils
renal US non acute with out hydronephrosis
Hyponatremia improved
avoid nephrotoxins
Labs pending for today
-
-
Date of Service: July 02, 2024
CC / HPI / ROS
-
Chief Complaint:
ONIEL
History of Present Illness:
Acute kidney injury cr at 1.5,
0.9 on admission
no fever,
Review of Systems:
no dizzy today
no cp or sob
no n/v
Labs
-
Labs:
WBC 6.3 10^3/uL (4.8-10.8) 06/29/24 03:33
RBC 2.93 10^6/uL (4.20-5.40) L 06/29/24 03:33
Hgb 8.6 g/dL (12.0-16.0) L 06/29/24 03:33
Hct 26.1 % (37.0-47.0) L 06/29/24 03:33
Plt Count 265 10^3/uL (130-400) 06/29/24 03:33
eGFR Cancelled 07/02/24 06:26
Uoq-D-Uniqsourxqw Pept 4230 pg/ml 06/25/24 09:15
Albumin 3.2 g/dl (3.5-5.0) L 06/26/24 03:37
Physical Exam
-
Vital Signs:
Vital Signs
Temp Pulse Resp BP Pulse Ox
98.6 F 137 18 161/80 99
07/02/24 11:12 07/02/24 11:32 07/02/24 11:32 07/02/24 11:32 07/02/24 11:32
Cardiovascular:: Regular rate and rhythm
Respiratory:: Bilateral: CTA
Lung Excursion:: Normal
Abdomen:: Nontender and Soft
Extremity Edema:: None: Bilateral:
Prieto Catheter: No
[2024-07-02] MEDS: LOPRESSOR 5 MG IV ×2 (11:55→15:43)
--- NOTE | 2024-07-02 12:00 | PTCARENOTE ---
Pt alarming on telemetry for afib with RVR. EKG obtained, made aware. BP 161/80, HR 130s. IV lopressor administered, cardiology consult placed, and echocardiogram ordered. Pt reports no symptoms, only dizziness when sitting up. HR in 90s in afib
after lopressor. Will continue to monitor on telemetry.
--- NOTE | 2024-07-02 12:04 | CM ---
Chart reviewed for d/c planning.
Patient to return to [facility] for rehab when stable
Plan: [place]
[2024-07-02 12:13] LABS: Blood Urea Nitrogen 48 mg/dl (7-17); Calcium 9.4 mg/dl (8.4-10.2); Carbon Dioxide 21 mmol/L (22-30); Chloride 101 mmol/L (98-107); Estimated Creatinine Clearance 24 ml/min; Glucose 177 mg/dl (70-99); Potassium 4.7 mmol/L (3.5-5.1); Sodium 133 mmol/L (135-145); eGFR 31.02
[2024-07-02] MEDS: NOVOLOG FLEXPEN-HIGH RESISTANCE 4 UNITS SC (12:32)
[2024-07-02 12:40] LABS: Troponin I 0.019 ng/ml
--- NOTE | 2024-07-02 13:47 | CON.CAR ---
Addendum entered and electronically signed by Alonso Price MD 07/02/24 16:00:
I saw and examined the patient.
The CHAUFFEUR or PA's note was reviewed and I agree with the note.
Comment: General: Well developed, well nourished in NAD.
Neck: Supple, no JVD, HJR, carotids +2 B/L, no bruits bilaterally.
Heart: Non displaced PMI, irregular, no murmurs, No S3, S4, no rubs.
Lungs: Scattered rhonchi
Extremities: No clubbing, cyanosis or edema bilaterally.
Neuro: Grossly nonfocal, awake, alert and oriented x3.
Adele has a history of hypertension, diabetes, anxiety, hyperlipidemia, pulmonary embolism on Eliquis, resident of [facility] rehab. She reports a history of CHF at age 35. She presented with shortness of breath and sore throat. She had
been admitted at [facility] with shoulder dislocation and proximal humerus fracture and reported was intubated for 2 days with self extubation with hoarse voice postextubation. She was at rehab at [facility]. In ER she is found to
have stridor and shortness of breath suspected from laryngeal spasm versus acute mucous plugging. She was treated with IV steroids. She also was given antibiotics. She developed renal sufficient with creatinine 1.9. She also had right arm
weakness and numbness and was seen by neurology and felt to be radiculopathy/nerve injury from existing edema from broken humerus. Cardiology is now consulted for new onset atrial fibrillation. She has no palpitations.
The present time she remains in A-fib. Will add Lopressor and assess rate response. Could consider cardioversion but patient already is on chronic Eliquis for pulmonary embolism and could make a case for just rate control and anticoagulation.
Will check an echocardiogram as well.
Original Note:
Consultation
Consultation Request
Date/Time Consultation Requested: 07/02/2024, 1141
Date/Time Consultation Performed: 07/02/2024, 1345
Requesting Provider: Dr. Miller
Performing Provider: MARI House for Dr. Price
Reason for Consultation: A-fib with RVR
Medical History
-
Chief Complaint: dizziness
History of Present Illness:
89-year-old female with history of hypertension, diabetes, anxiety, hyperlipidemia, PE (on Eliquis), admitted 06/25/2024 from [facility] rehab facility for shortness of breath and sore throat. Had recent hospital at [facility] for
shoulder dislocation/proximal humerus fracture and reportedly was intubated for 2 days then self extubated with hoarse voice status post self extubation. Was at [facility] for rehab. Initial evaluation in the ED found to have stridor and
shortness of breath suspected from laryngeal spasm versus acute mucous plugging. Treated with IV steroids. Was negative for COVID and influenza. Chest CT no pneumonia, was treated with IV steroids and antibiotics. Developed acute renal
insufficiency with increase in creatinine to 1.9 (baseline 0.9), followed by nephrology. Also complained of right arm weakness/numbness. Evaluated by neurology. Thought to be due to radiculopathy/nerve pressure injury with existing edema from
broken humerus.
Cardiology is consulted today for A-fib with rapid ventricular response, first noted today around 11 AM, heart rates 100s to 130s. Patient had been on metoprolol 50 mg twice daily in past but med has been on hold since 06/27/2024. Today it was
restarted and she was given one-time dose of metoprolol 5 mg IV.
Patient is Mexican-speaking and I spoke with her through language line. She denies history of A-fib. She reports she had history of heart failure around age 35. Not on diuretic. Denies history of MT, CAD.
Reports an awareness of elevated heart rate and has had intermittent dizziness for the past year. No chest pain or shortness of breath. She previously saw dedenter Dr. Machado but has not seen him in many years.
Past medical history:
HTN
DM
hyperlipidemia
anxiety
PE (on Eliquis)
R shoulder dislocation/prox humerus fracture
heart failure, age 35 per pt
Past Medical History
Past Medical History: Other (As above in HPI)
Past Surgical History: Other (Right humerus ORIF)
Social History
Tobacco: Former Smoker
Alcohol: Occasional
Drug: None
Allergies / Home Medications
Allergy/AdvReac Type Severity Reaction Status Date / Time
clopidogrel [From Plavix] Allergy Unknown Unknown Verified 06/25/24 04:06
Iodinated Contrast Media Allergy Unknown Unknown Verified 06/25/24 04:06
metronidazole Allergy Unknown Unknown Verified 06/25/24 04:06
morphine Allergy itching Verified 06/25/24 11:46
and
reddness,
slight
shortness
of breath
�Medication �Instructions �Recorded �Confirmed �Type
acetaminophen 325 mg tablet 650 mg PO Q6H PRN temp>100.4, mild 06/25/24 06/25/24 History
(Tylenol) pain
albuterol sulfate 2.5 mg/3 mL 2.5 mg inhalation Q6H wheezing 06/25/24 06/25/24 History
(0.083 %) solution for nebulization
albuterol sulfate 2.5 mg/3 mL 2.5 mg inhalation QID 06/25/24 06/25/24 History
(0.083 %) solution for nebulization
apixaban 5 mg tablet (Eliquis) See Rx Instructions .Route 06/25/24 06/25/24 History
.COMPLEX pulm embolism
atorvastatin 80 mg tablet 80 mg PO HS 06/25/24 06/25/24 History
bisacodyl 10 mg rectal suppository 10 mg HI DAILY PRN constipation, 06/25/24 06/25/24 History
if MOM ineffective
buspirone 5 mg tablet 5 mg PO DAILY 06/25/24 06/25/24 History
cholecalciferol (vitamin D3) 125 125 mcg PO DAILY 06/25/24 06/25/24 History
mcg (5,000 unit) capsule
clotrimazole-betamethasone 1 1 applic topical BID affected area 06/25/24 06/25/24 History
%-0.05 % topical cream
dexlansoprazole 30 mg 60 mg PO DAILY 06/25/24 06/25/24 History
capsule,biphase delayed release
insulin glargine 100 unit/mL (3 20 unit SC HS 06/25/24 06/25/24 History
mL) subcutaneous pen (Lantus
Solostar U-100 Insulin)
insulin lispro 100 unit/mL 0 - 10 unit SC .SLIDING SCALE AC 06/25/24 06/25/24 History
subcutaneous pen
insulin lispro 100 unit/mL 3 unit SC AC 06/25/24 06/25/24 History
subcutaneous pen
levetiracetam 250 mg tablet 250 mg PO BID seizure prevention 06/25/24 06/25/24 History
levothyroxine 88 mcg tablet 88 mcg PO DAILY 06/25/24 06/25/24 History
magnesium hydroxide 400 mg/5 mL 2,400 mg PO HSPRN PRN no BM x 3 06/25/24 06/25/24 History
oral suspension (Milk of Magnesia) days
meclizine 12.5 mg tablet 12.5 mg PO DAILYPRN PRN dizzyness 06/25/24 06/25/24 History
melatonin 5 mg tablet 5 mg PO HS 06/25/24 06/25/24 History
metoprolol tartrate 50 mg tablet 50 mg PO BID 06/25/24 06/25/24 History
montelukast 10 mg tablet 10 mg PO DAILY 06/25/24 06/25/24 History
polyethylene glycol 3350 17 gram 17 g PO DAILY Constipation 06/25/24 06/25/24 History
oral powder packet (Miralax)
sennosides 8.6 mg tablet (Senokot) 17.2 mg PO HS 06/25/24 06/25/24 History
sodium chloride 0.65 % nasal spray 2 spray intranasal Q2H PRN 06/25/24 06/25/24 History
aerosol congestion
ticagrelor 90 mg tablet (Brilinta) 90 mg PO BID Blood Clot 06/25/24 06/25/24 History
Prevention/Tx
tramadol 50 mg tablet 50 mg PO Q6HPRN PRN severe pain 06/25/24 06/25/24 History
Review of Systems
-
History Source: Patient
All other systems: Negative unless noted
Physical Exam
Vital Signs
Temp Pulse Resp BP Pulse Ox
98.6 F 137 18 161/80 99
07/02/24 11:12 07/02/24 11:32 07/02/24 11:32 07/02/24 11:55 07/02/24 11:32
Lab Results
06/29/24 03:33
07/02/24 10:41
Troponin I 0.019 ng/ml 07/02/24 12:04
Sta-M-Xbztrgxzkkt Pept 4230 pg/ml 06/25/24 09:15
GEN: No distress, awake, Ox3
HEENT: supple, anicteric, mmm
LUNGS: CTA, no wheezes/rales
CV: Irregular irregular, tachy, S1/S2, no murmur
ABD: soft, BS+, NT/ND
EXT: No edema
NEURO: Gross non-focal
SKIN: No rash
Impression / Plan
-
PCP:Son Tovar
Primary dedenter:previously saw Dr Machado
Impression:
new diagnosis atrial fibrillation with rapid ventricular response
h/o PE on Eliquis
Hypertension
Hyperlipidemia
reports h/o heart failure age 35
Anxiety
Previous cardiovascular studies: none
Plan:
89-year-old female with history of hypertension, diabetes, anxiety, hyperlipidemia, PE (on Eliquis), possible heart failure per her report, admitted 06/25/2024 from [facility] rehab facility for shortness of breath and sore throat. Initial
evaluation in the ED found to have stridor and shortness of breath suspected from laryngeal spasm versus acute mucous plugging. Treated with IV steroids. Was negative for COVID and influenza. Developed acute renal insufficiency with bump in
creatinine to 1.9. Also complained of right arm weakness/numbness. Evaluated by neurology. Thought to be due to radiculopathy/nerve pressure injury with existing edema from broken humerus. Cardiology is consulted today for new onset A-fib with
rapid ventricular response, first noted today around 11 AM, heart rates 100s to 130s. Patient had been on metoprolol 50 mg twice daily in past but med has been on hold since 06/27/2024. Today it was restarted and she was given one-time dose of
metoprolol 5 mg IV. Complains of awareness of elevated heart rate and has had intermittent dizziness for past year. No chest pain or shortness of breath.
EKG personally reviewed: A-fib, incomplete right bundle branch block
Telemetry personally reviewed: A-fib heart rates 100s to 130s
-Resume metoprolol 50 mg twice daily
-Continue Eliquis. Currently on 5 mg twice daily. Given age and creatinine, consider switching to 2.5 mg twice daily dose. (Creatinine was 0.9 on admission, creatinine up to 1.9 06/28/2024, 1.6 07/02/2024)
-Consider cardioversion if remains in A-fib. Has been in A-fib for approximately 4 hours. Has been on uninterrupted Eliquis(on chronically for history of PE).
-check echo to get baseline given patient's reported history of heart failure
-If LVEF normal and additional rate control needed, consider switching Procardia to nondihydropyridine CCB
-check TSH-ordered
.
Data Reviewed
-
EKG: Tracing Personally Visualized and interpreted
Labs: Labs Reviewed by me
--- NOTE | 2024-07-02 15:17 | W.PN.HOSP.TC ---
Today's Communication/Plan
-
Assessment / Plan
Assessment / Plan
Encounter through language line daily
physical Exam
General: not in respiratory Distress, no Stridor heard, Obese
HEENT: Moist mucous membranes and Atraumatic
Respiratory: Decreased Breath Sounds, no wheezes.
Cardiac: S1/S2
GI: Soft and Non Tender
Genito-urinary: Clear Urine
Musculoskeletal: No Cyanosis, right arm in sling, anterior right shoulder bruising
Skin: No Jaundice, warm and dry
Neuro: Oriented, no tremor
Psych: Calm, not agitated
# A-fib with RVR
-New onset
-Have restarted home dose of metoprolol tartrate 50 mg p.o. twice daily
-Give 1 dose of IV Lopressor 5 mg this morning for sustained heart rate around 130
-Troponin within normal limits, electrolytes normal
-Will check echocardiogram
-Further recommendations from cardiology
-Continue to monitor on telemetry
# Acute laryngitis
-Stridor and respiratory distress : resolved. Not hypoxic.
-Negative COVID and influenza screen, likely viral infection. Negative Legionella and Streptococcus antigens.
-Chest radiography did not show definitive infiltrate.
-CT scan of the chest, no pneumonia. Neck without contrast, no obstructive lesion.
-s/p IV steroid,finished oral prednisone, low-dose Benadryl PRN. Changed to PRN 3 % nasal spray Q TID
-Completed course of antibiotics
-She is tolerating regular diet
-Appreciate ENT, pulmonary and ID help
# Right humeral head fracture
-Numbness and weakness improving
-Advised to continue to move fingers and off the sling as tolerated.
-Likely pressure nerve injury with already existing edema from broken humerus exacerbated by sleeping position.
-She is already on Eliquis [place] for PE
-Seen by neurologist.
# Oniel
-Seems creatinine to stabilize around 1.6
-s/p IVF, edema noted, stopped IVF
-No flank pain or retention per bladder scan protocol
-Could be related to viral syndrome or medication induced ( she received Vancomycin and penicillin)
-consistent with acute tubular necrosis
-Stopped vancomycin and amoxicillin
-No obstruction on renal US
-Changed medications doses to renally appropriate, discussed with pharmacist.
-Consulted nephrology, appreciate input.
# history of diabetes.
-Poorly controlled, HBG A1C 8.3.
-Reduced Lantus dose while off Steroid now
-Continue with insulin sliding scale & pre-meal.
#History of essential hypertension
-Uncontrolled, increase dose of Nifedipine
-c/w home dose of Metoprolol.
# drop in HGB, suspect dilutional with anemia of acute blood loss ( recent fracture)
-Stable HGB
# Gout, c/w allopurinol. Adjusted the dose .
# History of hypothyroidism, continue Synthroid
#Recent right shoulder injury/humeral fracture. c/w PRN Tramadol & Tylenol.
X ray was reviewed with orthopedic doctor building stonecutter, recommended to use sling, can come off as tolerated.
# Patient was on Keppra. d/w family, was given to her pre-intubation , daughter felt it was panic attack more than seizure or respiratory problem and requested to be stopped, dc Keppra, no seizures noted.
# History of pulmonary embolism. C/W Eliquis for now, s/p loading schedule now, d/w pharmacist.
# Hyperlipidemia, no changes intended
#Obesity,
# Chronic insomnia
Back on Ambien
Total time spent to see the patient, examine the patient, review data and lab results, discuss treatment plan with patient, daughter and nursing staff around 59 minutes
Anticipated Discharge: 24 - 48 hours
Subjective/Interval History
-
Date of Service: July 02, 2024
Patient was seen and examined at bedside this morning. Complains of ongoing right upper extremity pain from fracture but otherwise comfortable. Eating breakfast.
Objective Data
-
Labs:
Laboratory Results
07/02/24 07/02/24
06:26 10:41
Sodium Cancelled 133 L
Potassium Cancelled 4.7
Chloride Cancelled 101
Carbon Dioxide Cancelled 21 L
BUN Cancelled 48 H
Creatinine Cancelled 1.6 H
Glucose Cancelled 177 H
Calcium Cancelled 9.4
Vital Signs:
Vital Signs
Temp Pulse Resp BP Pulse Ox
98.6 F 136 18 112/62 98
07/02/24 15:14 07/02/24 15:14 07/02/24 15:14 07/02/24 15:14 07/02/24 15:14
I&O
07/01/24 07/02/24 07/03/24
06:59 06:59 06:59
Intake Total 1120 / 1120 240 / 240
Balance 1120 / 1120 240 / 240
Review of Systems
-
History Source: Patient
All other systems: Reviewed and negative
Musculoskeletal: Reports Joint Pain (Right arm pain)
Physical Exam
-
General: No Apparent Distress
[2024-07-02 15:38] LABS: Glucose - Point of Care 154 mg/dl (70-99)
[2024-07-02] MEDS: TYLENOL 1000 MG PO (15:43)
[2024-07-02] MEDS: LOPRESSOR 50 MG PO (20:14)
[2024-07-02] MEDS: ATIVAN 0.5 MG PO (20:14)
[2024-07-02 21:09] LABS: Glucose - Point of Care 168 mg/dl (70-99)
[2024-07-02] MEDS: AMBIEN 5 MG PO (21:33)
[2024-07-02] MEDS: LANTUS 0.25 UNITS SC (21:33)
[2024-07-03] MEDS: ULTRAM 50 MG PO ×4 (00:29→21:23)
[2024-07-03 03:11] VITALS: BP 146/57
[2024-07-03] MEDS: SYNTHROID 88 MCG PO (05:47)
[2024-07-03 05:52] VITALS: BMI 37.9
[2024-07-03 06:07] VITALS: BMI 37.6
[2024-07-03 07:31] VITALS: BP 135/59
[2024-07-03] MEDS: PROCARDIA XL (EXTENDED RELEASE) 60 MG PO (07:39)
[2024-07-03] MEDS: ZENPEP DELAYED RELEASE CAPSULE 1 CAPSULE PO ×2 (07:40→17:45)
[2024-07-03] MEDS: PROTONIX 40 MG PO (07:40)
[2024-07-03] MEDS: LOPRESSOR 50 MG PO ×2 (07:40→20:06)
[2024-07-03] MEDS: ELIQUIS 5 MG PO (07:40)
[2024-07-03] MEDS: LOW STRENGTH ASPIRIN 81 MG PO (07:40)
[2024-07-03] MEDS: ZYLOPRIM 50 MG PO (07:40)
[2024-07-03 07:49] LABS: Glucose - Point of Care 156 mg/dl (70-99)
[2024-07-03] MEDS: NOVOLOG FLEXPEN 7 UNITS SC ×2 (09:23→17:45)
[2024-07-03] MEDS: NOVOLOG FLEXPEN-HIGH RESISTANCE 2 UNITS SC ×3 (09:23→17:45)
[2024-07-03 11:35] LABS: Glucose - Point of Care 271 mg/dl (70-99)
[2024-07-03 12:05] VITALS: BP 123/53
--- NOTE | 2024-07-03 12:42 | W.PN.CARDCBS ---
Addendum entered and electronically signed by Alonso Price MD 07/03/24 13:04:
I saw and examined the patient.
The [employer] or PA's note was reviewed and I agree with the note.
Comment: General: Well developed, well nourished in NAD.
Neck: Supple, no JVD, HJR, carotids +2 B/L, no bruits bilaterally.
Heart: Non displaced PMI, RRR, no murmurs, No S3, S4, no rubs.
Lungs: Scattered rhonchi
Extremities: No clubbing, cyanosis or edema bilaterally.
Neuro: Grossly nonfocal, awake, alert and oriented x3.
She has spontaneously converted to sinus rhythm. She is on chronic Eliquis with prior pulmonary embolism. Would not make any changes at the current time other than to decrease Eliquis dose to 2.5 mg p.o. twice daily. We could consider amiodarone
in attempt to keep in sinus rhythm but likely goes in and out of A-fib as an outpatient as well and is asymptomatic. Check echocardiogram.
Original Note:
Today's Communication / Plan
-
Decrease Eliquis to 2.5 mg BID due to Cre 1.6 and age 89
Impression / Plan
-
PCP:Son Tovar
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
Impression:
Admitted with SOB 06/25/24
Afib with RVR 07/02/24
Newly diagnosed paroxysmal Afib 07/02/24
s/p spontaneous conversion to SR 07/02/24 PM
Chronic Eliquis OAC for h/o PE
h/o PE
Hypertension
Hyperlipidemia
reports h/o heart failure age 35, details unknown
Anxiety
Stridor and acute laryngitis
Abnormal CT chest with laryngeal and hypopharyngeal soft tissues that could be inflammatory/infectious, but malignancy not excluded
Echo 07/03/24: Study pending
Plan:
-Patient spontaneously converted to SR overnight. No conversion pauses noted and no symptomatic changes.
-Outpatient dose of Lopressor 50 mg BID continued
-Outpatient dose of Eliquis 5 mg BID (age 89, Cre 1.6, wt 87.26 kg) has been continued this admission. Correct dose based on age and Cre would be Eliquis 2.5 mg BID, will change on 07/03/24. Sounds like PE is remote.
-Continue Eliquis. Currently on 5 mg twice daily. Given age and creatinine, consider switching to 2.5 mg twice daily dose. (Creatinine was 0.9 on admission, creatinine up to 1.9 06/28/2024, 1.6 07/02/2024)
-TSH pending
-Echo pending
-There is a reported history of CHF, but this apparently happened when the patient was in her 30s, that was 50 years ago, and details are not clear. Patient was not taking a daily diuretic prior to admission. proBNP was 4230 on admission. No
doses of Lasix given and no concern for acute HF currently.
HPI: 89-year-old female with history of hypertension, diabetes, anxiety, hyperlipidemia, PE (on Eliquis), possible heart failure per her report, admitted 06/25/2024 from [facility] rehab facility for shortness of breath and sore throat. Initial
evaluation in the ED found to have stridor and shortness of breath suspected from laryngeal spasm versus acute mucous plugging. Treated with IV steroids. Was negative for COVID and influenza. Developed acute renal insufficiency with bump in
creatinine to 1.9. Also complained of right arm weakness/numbness. Evaluated by neurology. Thought to be due to radiculopathy/nerve pressure injury with existing edema from broken humerus. Cardiology is consulted today for new onset A-fib with
rapid ventricular response, first noted today around 11 AM, heart rates 100s to 130s. Patient had been on metoprolol 50 mg twice daily in past but med has been on hold since 06/27/2024. Today it was restarted and she was given one-time dose of
metoprolol 5 mg IV. Complains of awareness of elevated heart rate and has had intermittent dizziness for past year. No chest pain or shortness of breath.
Progress Note - [employer]
Subjective
Date of Service: July 03, 2024
She didn't feel any different in SR
Objective
Labs:
06/29/24 03:33
Labs
Hgb 8.6 g/dL (12.0-16.0) L 06/29/24 03:33
Hct 26.1 % (37.0-47.0) L 06/29/24 03:33
Plt Count 265 10^3/uL (130-400) 06/29/24 03:33
Sodium 133 mmol/L (135-145) L 07/02/24 10:41
Potassium 4.7 mmol/L (3.5-5.1) 07/02/24 10:41
BUN 48 mg/dl (7-17) H 07/02/24 10:41
Creatinine 1.6 mg/dL (0.6-1.0) H 07/02/24 10:41
Glucose 177 mg/dl (70-99) H 07/02/24 10:41
Troponins
07/02/24
12:04
Troponin I 0.019
Vital Signs and I&O:
Vital Signs
Temp Pulse Resp BP Pulse Ox
97.4 F 58 16 123/53 98
07/03/24 12:05 07/03/24 12:05 07/03/24 12:05 07/03/24 12:05 07/03/24 12:05
Vital Signs
Temp Pulse Resp BP Pulse Ox
97.4 F 58 16 123/53 98
07/03/24 12:07/03/24 12:05 07/03/24 12:05 07/03/24 12:05 07/03/24 12:05
Intake & Output
07/01/24 07/02/24 07/03/24 07/04/24
06:59 06:59 06:59 06:59
Intake Total 1120 / 1120 240 / 240 840 / 840
Balance 1120 / 1120 240 / 240 840 / 840
Physical Exam
Physical Exam
General: NAD
HEENT: MMM
Heart: SR on tele
Lungs: RA. No audible wheeze
Extremities: No edema B/L
--- NOTE | 2024-07-03 13:45 | CARDSERVLU ---
Echocardiogram with Lumason completed after protocol screening completed. Allergies verified.
Patent IV site: _L midline____
IV site flushed with 0.9% NaCl pre and post administration.
Diluted bolus method utilized to enhance visualization of ventricular louise.
Total volume given: _2.5___ mL
Patient tolerated all procedures well without complications.
--- NOTE | 2024-07-03 13:51 | W.PN.NEPH.PH ---
Today's Communication / Plan
-
Recheck urinalysis
Assessment/Plan
-
IMP:
Oniel
History of Sore throat
Acute laryngitis
Stridor and respiratory distress : resolved
mild hyponatremia
history of diabetes.
History of essential hypertension
Anemia
Gout
History of hypothyroidism
Recent right shoulder injury/humeral fracture
History of pulmonary embolism
Hyperlipidemia
Obesity
Plan:
0.9 on admission/creatinine improving to 1.6
Urine output not recorded
A/w URI symp, laryngitis
ONIEL-no clear etiology, UA -ITI sample, Fena not low= could be hemodynamically mediated as well with episodes of A-fib with RVR
bladder scan 266cc, neg U eosinophils
renal US non acute with out hydronephrosis
Hyponatremia improved
avoid nephrotoxins
Labs pending for today
Check echo pending
Repeat UA
-
-
Date of Service: July 03, 2024
CC / HPI / ROS
-
Chief Complaint:
ONIEL
History of Present Illness:
Acute kidney injury cr at 1.5,
0.9 on admission
no fever,
Review of Systems:
no dizzy today
no cp or sob
no n/v
Labs
-
Labs:
WBC 6.3 10^3/uL (4.8-10.8) 06/29/24 03:33
RBC 2.93 10^6/uL (4.20-5.40) L 06/29/24 03:33
Hgb 8.6 g/dL (12.0-16.0) L 06/29/24 03:33
Hct 26.1 % (37.0-47.0) L 06/29/24 03:33
Plt Count 265 10^3/uL (130-400) 06/29/24 03:33
eGFR 31.02 07/02/24 10:41
Zvj-N-Ekejfzzgzhx Pept 4230 pg/ml 06/25/24 09:15
Albumin 3.2 g/dl (3.5-5.0) L 06/26/24 03:37
Physical Exam
-
Vital Signs:
Vital Signs
Temp Pulse Resp BP Pulse Ox
97.4 F 58 16 123/53 98
07/03/24 12:05 07/03/24 12:05 07/03/24 12:05 07/03/24 12:05 07/03/24 12:05
Cardiovascular:: Regular rate and rhythm
Respiratory:: Bilateral: CTA
Lung Excursion:: Normal
Abdomen:: Nontender and Soft
Extremity Edema:: None: Bilateral:
Prieto Catheter: No
--- NOTE | 2024-07-03 14:55 | W.PN.HOSP.TC ---
Today's Communication/Plan
-
Assessment / Plan
Assessment / Plan
physical Exam
General: not in respiratory Distress, no Stridor heard, Obese
HEENT: Moist mucous membranes and Atraumatic
Respiratory: Decreased Breath Sounds, no wheezes.
Cardiac: S1/S2
GI: Soft and Non Tender
Genito-urinary: Clear Urine
Musculoskeletal: No Cyanosis, right arm in sling, anterior right shoulder bruising
Skin: No Jaundice, warm and dry
Neuro: Oriented, no tremor
Psych: Calm, not agitated
# A-fib with RVR
-New onset, converted spontaneously to normal sinus rhythm overnight
-Continue on home dose of metoprolol tartrate 50 mg p.o. twice daily
-Troponin within normal limits, electrolytes normal
-Will check echocardiogram and TSH
-Already on Eliquis which we will continue although reduced dose to 2.5 mg twice daily
-Appreciate cardiology recommendations
-Continue to monitor on telemetry
# Acute laryngitis
-Stridor and respiratory distress : resolved. Not hypoxic.
-Negative COVID and influenza screen, likely viral infection. Negative Legionella and Streptococcus antigens.
-Chest radiography did not show definitive infiltrate.
-CT scan of the chest, no pneumonia. Neck without contrast, no obstructive lesion.
-s/p IV steroid,finished oral prednisone, low-dose Benadryl PRN. Changed to PRN 3 % nasal spray Q TID
-Completed course of antibiotics
-She is tolerating regular diet
-Appreciate ENT, pulmonary and ID help
# Right humeral head fracture
-Numbness and weakness improving
-Advised to continue to move fingers and off the sling as tolerated.
-Likely pressure nerve injury with already existing edema from broken humerus exacerbated by sleeping position.
-She is already on Eliquis [place] for PE
-Seen by neurologist.
# RENE
-Seems creatinine to stabilize around 1.6
-s/p IVF, edema noted, stopped IVF
-No flank pain or retention per bladder scan protocol
-Could be related to viral syndrome or medication induced ( she received Vancomycin and penicillin)
-consistent with acute tubular necrosis
-Stopped vancomycin and amoxicillin
-No obstruction on renal US
-Changed medications doses to renally appropriate, discussed with pharmacist.
-Consulted nephrology, appreciate input.
# history of diabetes.
-Poorly controlled, HBG A1C 8.3.
-Reduced Lantus dose while off Steroid now
-Continue with insulin sliding scale & pre-meal.
#History of essential hypertension
-Uncontrolled, increase dose of Nifedipine
-c/w home dose of Metoprolol.
# drop in HGB, suspect dilutional with anemia of acute blood loss ( recent fracture)
-Stable HGB
# Gout, c/w allopurinol. Adjusted the dose .
# History of hypothyroidism, continue Synthroid
#Recent right shoulder injury/humeral fracture. c/w PRN Tramadol & Tylenol.
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
# Patient was on Keppra. d/w family, was given to her pre-intubation , daughter felt it was panic attack more than seizure or respiratory problem and requested to be stopped, dc Keppra, no seizures noted.
# History of pulmonary embolism. Continue home Eliquis although at corrected dose of 2.5 mg twice daily
# Hyperlipidemia, no changes intended
#Obesity,
# Chronic insomnia
Back on Ambien
Total time spent to see the patient, examine the patient, review data and lab results, discuss treatment plan with patient, daughter and nursing staff around 59 minutes
Anticipated Discharge: 24 - 48 hours
Subjective/Interval History
-
Date of Service: July 03, 2024
Patient was seen and examined at bedside this morning. Comfortable no complaints other than ongoing for right shoulder pain. Converted spontaneously to normal sinus rhythm overnight.
Objective Data
-
Vital Signs:
Vital Signs
Temp Pulse Resp BP Pulse Ox
97.4 F 58 16 123/53 98
07/03/24 12:05 07/03/24 12:05 07/03/24 12:05 07/03/24 12:05 07/03/24 12:05
I&O
07/02/24 07/03/24 07/04/24
06:59 06:59 06:59
Intake Total 240 / 240 840 / 840
Balance 240 / 240 840 / 840
Review of Systems
-
History Source: Patient
All other systems: Reviewed and negative
Musculoskeletal: Reports Joint Pain (Right shoulder)
Physical Exam
-
General: No Apparent Distress
[2024-07-03 15:18] LABS: Glucose - Point of Care 188 mg/dl (70-99)
[2024-07-03] MEDS: NOVOLOG FLEXPEN SC (15:18)
[2024-07-03] MEDS: SENOKOT-S 1 TABLET PO ×2 (15:19→20:06)
[2024-07-03] MEDS: ZENPEP DELAYED RELEASE CAPSULE PO (15:19)
[2024-07-03 15:35] VITALS: BP 136/53
[2024-07-03 19:42] VITALS: BP 120/57
[2024-07-03] MEDS: ATIVAN 0.5 MG PO (20:06)
[2024-07-03] MEDS: ELIQUIS 2.5 MG PO (20:06)
[2024-07-03 21:22] LABS: Glucose - Point of Care 261 mg/dl (70-99)
[2024-07-03] MEDS: LANTUS 0.25 UNITS SC (21:22)
[2024-07-03] MEDS: AMBIEN 5 MG PO (21:23)
[2024-07-03 22:53] VITALS: BP 103/53
[2024-07-04 03:39] VITALS: BP 141/53
[2024-07-04] MEDS: SYNTHROID 88 MCG PO (04:51)
[2024-07-04 06:00] VITALS: BMI 37.1
[2024-07-04 07:33] LABS: Glucose - Point of Care 198 mg/dl (70-99)
[2024-07-04 07:39] VITALS: BP 143/55
[2024-07-04] MEDS: LOW STRENGTH ASPIRIN 81 MG PO (08:39)
[2024-07-04] MEDS: SENOKOT-S 1 TABLET PO (08:39)
[2024-07-04] MEDS: PROCARDIA XL (EXTENDED RELEASE) 60 MG PO (08:40)
[2024-07-04] MEDS: ZYLOPRIM 50 MG PO (08:40)
[2024-07-04] MEDS: LOPRESSOR 50 MG PO (08:40)
[2024-07-04] MEDS: PROTONIX 40 MG PO (08:40)
[2024-07-04] MEDS: ELIQUIS 2.5 MG PO (08:40)
[2024-07-04] MEDS: ZENPEP DELAYED RELEASE CAPSULE 1 CAPSULE PO ×2 (08:40→12:40)
[2024-07-04] MEDS: NOVOLOG FLEXPEN 7 UNITS SC ×2 (08:41→12:40)
[2024-07-04] MEDS: NOVOLOG FLEXPEN-HIGH RESISTANCE 2 UNITS SC (08:41)
[2024-07-04 10:24] LABS: Blood Urea Nitrogen 47 mg/dl (7-17); Calcium 8.9 mg/dl (8.4-10.2); Carbon Dioxide 27 mmol/L (22-30); Chloride 97 mmol/L (98-107); Estimated Creatinine Clearance 23 ml/min; Glucose 194 mg/dl (70-99); Magnesium 1.4 mg/dl (1.6-2.3); Potassium 4.2 mmol/L (3.5-5.1); Sodium 134 mmol/L (135-145); eGFR 28.84
--- NOTE | 2024-07-04 10:52 | W.PN.CARDCBS ---
Addendum entered and electronically signed by Alonso Price MD 07/04/24 12:59:
I saw and examined the patient.
The [employer] or PA's note was reviewed and I agree with the note.
Comment: General: Well developed, well nourished in NAD.
Stable cardiology status for discharge. Discussed with patient. Follow-up arranged.
Original Note:
Today's Communication / Plan
-
Cont Lopressor and reduced dose Eliquis
Cardiology f/u arranged
Impression / Plan
-
PCP:Son Tovar
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
Impression:
Admitted with SOB 06/25/24
Afib with RVR 07/02/24
Newly diagnosed paroxysmal Afib 07/02/24
s/p spontaneous conversion to SR 07/02/24 PM
Chronic Eliquis OAC for h/o PE
h/o PE
Hypertension
Hyperlipidemia
reports h/o heart failure age 35, details unknown
now says no h/o CHF and that it was a stroke in her 30s 07/04/24
Anxiety
Stridor and acute laryngitis
Abnormal CT chest with laryngeal and hypopharyngeal soft tissues that could be inflammatory/infectious, but malignancy not excluded
Echo 07/03/24: EF 60 to 65%, trace MR, trace aortic insufficiency
Plan:
-Talked with patient via [employer] and updated her with echo report 07/04/24. Echo noted above.
-Patient now says that she never had CHF in her 30s and that it was a stroke. Regardless, echo with preserved EF and no significant valve disease
-Remains in SR following spontaneous conversion 07/02/24 PM. No conversion pauses noted and no symptomatic changes.
-Outpatient dose of Lopressor 50 mg BID continued
-Outpatient dose of Eliquis 5 mg BID (age 89, Cre 1.6, wt 87.26 kg) has been continued this admission. Correct dose based on age and Cre would be Eliquis 2.5 mg BID, will change on 07/03/24. Sounds like PE is remote.
-Changed dose of Eliquis to 2.5 mg BID on 07/04/24 due to age 89 and Cre 1.7.
-Outpatient cardiology f/u arranged
HPI: 89-year-old female with history of hypertension, diabetes, anxiety, hyperlipidemia, PE (on Eliquis), possible heart failure per her report, admitted 06/25/2024 from [facility] rehab facility for shortness of breath and sore throat. Initial
evaluation in the ED found to have stridor and shortness of breath suspected from laryngeal spasm versus acute mucous plugging. Treated with IV steroids. Was negative for COVID and influenza. Developed acute renal insufficiency with bump in
creatinine to 1.9. Also complained of right arm weakness/numbness. Evaluated by neurology. Thought to be due to radiculopathy/nerve pressure injury with existing edema from broken humerus. Cardiology is consulted today for new onset A-fib with
rapid ventricular response, first noted today around 11 AM, heart rates 100s to 130s. Patient had been on metoprolol 50 mg twice daily in past but med has been on hold since 06/27/2024. Today it was restarted and she was given one-time dose of
metoprolol 5 mg IV. Complains of awareness of elevated heart rate and has had intermittent dizziness for past year. No chest pain or shortness of breath.
Progress Note - [employer]
Subjective
Date of Service: July 04, 2024
Denies palpitations
Objective
Labs:
06/29/24 03:33
07/04/24 09:34
Labs
Hgb 8.6 g/dL (12.0-16.0) L 06/29/24 03:33
Hct 26.1 % (37.0-47.0) L 06/29/24 03:33
Plt Count 265 10^3/uL (130-400) 06/29/24 03:33
Sodium 134 mmol/L (135-145) L 07/04/24 09:34
Potassium 4.2 mmol/L (3.5-5.1) 07/04/24 09:34
BUN 47 mg/dl (7-17) H 07/04/24 09:34
Creatinine 1.7 mg/dL (0.6-1.0) H 07/04/24 09:34
Glucose 194 mg/dl (70-99) H 07/04/24 09:34
Troponins
07/02/24
12:04
Troponin I 0.019
Vital Signs and I&O:
Vital Signs
Temp Pulse Resp BP Pulse Ox
98.3 F 67 20 143/55 98
07/04/24 07:39 07/04/24 07:39 07/04/24 07:39 07/04/24 07:39 07/04/24 08:00
Vital Signs
Temp Pulse Resp BP Pulse Ox
98.3 F 67 20 143/55 98
07/04/24 07:39 07/04/24 07:39 07/04/24 07:39 07/04/24 07:39 07/04/24 08:00
Intake & Output
07/02/24 07/03/24 07/04/24 07/05/24
06:59 06:59 06:59 06:59
Intake Total 240 / 240 840 / 840 960 / 960
Balance 240 / 240 840 / 840 960 / 960
Physical Exam
Physical Exam
General: NAD
HEENT: MMM
Heart: SR on tele
Lungs: RA. No audible wheeze
Extremities: No edema B/L
[2024-07-04 11:04] VITALS: BP 146/50
--- NOTE | 2024-07-04 11:04 | W.PN.NEPH.PH ---
Addendum entered and electronically signed by Jacques Richardson DO 07/04/24 11:08:
If creatinine continues to rise tomorrow will check postvoid bladder scan to assess for urinary retention
Original Note:
Today's Communication / Plan
-
Observe
Unfortunately etiology of you acute kidney injury is ill-defined
Assessment/Plan
-
IMP:
RENE (baseline 0.9
History of Sore throat
Acute laryngitis
Stridor and respiratory distress : resolved
mild hyponatremia
history of diabetes.
History of essential hypertension
Anemia
Gout
History of hypothyroidism
Recent right shoulder injury/humeral fracture
History of pulmonary embolism
Hyperlipidemia
Obesity
Plan:
0.9 on admission/creatinine improving to 1.7
Urine output not recorded
A/w URI symp, laryngitis
RENE-no clear etiology, UA -ITI sample, Fena not low= could be hemodynamically mediated as well with episodes of A-fib with RVR
bladder scan 266cc, neg U eosinophils
renal US non acute with out hydronephrosis
Hyponatremia improved to 134
avoid nephrotoxins
Labs pending for today
Check echo : EF preserved
Repeat UA pending
-
-
Date of Service: July 04, 2024
CC / HPI / ROS
-
Chief Complaint:
RENE
History of Present Illness:
Acute kidney injury cr up to 1.7,
0.9 on admission
Sodium up to 134
Review of Systems:
no dizzy today
no cp or sob
no n/v
No fever
Labs
-
Labs:
WBC 6.3 10^3/uL (4.8-10.8) 06/29/24 03:33
RBC 2.93 10^6/uL (4.20-5.40) L 06/29/24 03:33
Hgb 8.6 g/dL (12.0-16.0) L 06/29/24 03:33
Hct 26.1 % (37.0-47.0) L 06/29/24 03:33
Plt Count 265 10^3/uL (130-400) 06/29/24 03:33
Sodium 134 mmol/L (135-145) L 07/04/24 09:34
Potassium 4.2 mmol/L (3.5-5.1) 07/04/24 09:34
Chloride 97 mmol/L (98-107) L 07/04/24 09:34
Carbon Dioxide 27 mmol/L (22-30) 07/04/24 09:34
BUN 47 mg/dl (7-17) H 07/04/24 09:34
Creatinine 1.7 mg/dL (0.6-1.0) H 07/04/24 09:34
eGFR 28.84 07/04/24 09:34
Glucose 194 mg/dl (70-99) H 07/04/24 09:34
Calcium 8.9 mg/dl (8.4-10.2) 07/04/24 09:34
Phosphorus 4.0 mg/dl (2.5-4.5) 07/04/24 09:34
Hou-V-Zqqirkdonev Pept 4230 pg/ml 06/25/24 09:15
Albumin 3.2 g/dl (3.5-5.0) L 06/26/24 03:37
Physical Exam
-
Vital Signs:
Vital Signs
Temp Pulse Resp BP Pulse Ox
98.3 F 67 20 143/55 98
07/04/24 07:39 07/04/24 07:39 07/04/24 07:39 07/04/24 07:39 07/04/24 08:00
Cardiovascular:: Regular rate and rhythm
Respiratory:: Bilateral: CTA
Lung Excursion:: Normal
Abdomen:: Nontender and Soft
Extremity Edema:: None: Bilateral:
Prieto Catheter: No
[2024-07-04 11:12] VITALS: BP 117/65; PULSE 64; PULSE 80; O2SAT 99
[2024-07-04 11:14] VITALS: BP 117/65; PULSE 64; O2SAT 99
[2024-07-04 11:14] LABS: Glucose - Point of Care 252 mg/dl (70-99)
[2024-07-04] MEDS: MAGNESIUM OXIDE 500 MG PO (11:45)
[2024-07-04] MEDS: ANTIVERT 12.5 MG PO (11:45)
--- NOTE | 2024-07-04 11:52 | W.DCSUMMARY ---
Addendum entered and electronically signed by Liu Miller DO 07/04/24 13:17:
07/02 RN Skin/Wound assessments: Right Heel Deep Tissue Injury Stage II
Original Note:
Discharge Summary
Discharge Data
Date of Admission: 06/25/24
Date of Discharge: 07/04/24
-
Pending Results: No
Hospital Course
Ms. Prado is an 89-year-old Uzbek-speaking female with a medical history of pulmonary embolism (on Eliquis), insulin-dependent diabetes mellitus, CAD (PCI with stent approximately 2020 at [facility], now off Brilinta, aspirin only),
hypertension, chronic back pain, anxiety, and recent hospitalization at [facility] for right humeral fracture following mechanical fall who presented from SNF with shortness of breath and stridor. Apparently she had been intubated and
mechanically ventilated for about 2 days during her recent admission at [facility] and subsequently self extubated. She was admitted here at [place] for treatment of laryngeal spasm versus mucous plugging. She was given racemic
epinephrine and steroids with improvement in her respiratory status. There was no evidence on imaging of pulmonary infection however she was treated empirically with a course of antibiotics considering her recent hospitalization. She was evaluated
during this hospitalization by ENT, pulmonology, and infectious disease.
During her hospitalization here she was found to have an RENE consistent with acute tubular necrosis. Her renal function remained stable with a creatinine around 1.6. Renal imaging showed no evidence of obstruction. Her medications have been
renally dosed including her Eliquis dose which was reduced to 2.5 mg twice daily. She should continue to have her kidney function monitored in the outpatient setting. She had mild hyponatremia and hypomagnesemia. Her magnesium was repleted and
her sodium levels were monitored and remained stable.
She developed a brief episode of A-fib with RVR during which she remained asymptomatic. Her heart rate was easily controlled after resuming her home dose of metoprolol tartrate. She converted spontaneously to normal sinus rhythm. She was
evaluated by cardiology. Echocardiogram showed normal cardiac structure and function. She should continue on her home dose of metoprolol tartrate and follow-up closely with her therapist occupational. She has reported history of heart failure dating back
to her 30s however details of this are unclear and she has no current evidence of active heart failure. Nifedipine was added to her medication regimen for better blood pressure control. She will need to follow-up with her primary care physician
for ongoing blood pressure monitoring and dosage adjustments as needed.
She was evaluated by neurology for some numbness in her right arm following right humeral fracture prior to this admission. No acute interventions warranted. She should continue to keep her arm immobilized in a sling. She will need outpatient
follow-up with orthopedics. No surgical intervention was warranted for this fracture per report from prior admission at [facility].
At time of hospital discharge she was medically stable. She will be discharged to SNF to continue PT/OT. She should follow-up closely with her PCP, therapist occupational, and orthopedist.
General: not in respiratory Distress, no Stridor heard, Obese
HEENT: Moist mucous membranes and Atraumatic
Respiratory: Decreased Breath Sounds, no wheezes.
Cardiac: S1/S2
GI: Soft and Non Tender
Genito-urinary: Clear Urine
Musculoskeletal: No Cyanosis, right arm in sling, anterior right shoulder bruising
Skin: No Jaundice, warm and dry
Neuro: Oriented, no tremor
Psych: Calm, not agitated
Discharge Plan
-
Patient Disposition: Care Home/SNF
Discharge Diagnosis/Procedures: Acute laryngitis with stridor
Diet: Diabetic, Carb Controlled
Activity: With assistance and As tolerated
Activity Restrictions/Additional Instructions:
Wound Care Instructions
R heel: clean with saline, Adaptic, ABD pad and mercedes, change q other day and prn soilage.
Waffle air boots when in bed
Follow up at wound care center call for an appointment.
Ms. Prado is an 89-year-old [place]-speaking female with a medical history of pulmonary embolism (on Eliquis), insulin-dependent diabetes mellitus, hypertension, chronic back pain, anxiety, and recent hospitalization at [facility] for
right humeral fracture following mechanical fall who presented from SNF with shortness of breath and stridor. Apparently she had been intubated and mechanically ventilated for about 2 days during her recent admission at [facility] and
subsequently self extubated. She was admitted here at [place] for treatment of laryngeal spasm versus mucous plugging. She was given racemic epinephrine and steroids with improvement in her respiratory status. There was no evidence on imaging
of pulmonary infection however she was treated empirically with a course of antibiotics considering her recent hospitalization. She was evaluated during this hospitalization by ENT, pulmonology, and infectious disease.
During her hospitalization here she was found to have an RENE consistent with acute tubular necrosis. Her renal function remained stable with a creatinine around 1.6. Renal imaging showed no evidence of obstruction. Her medications have been
renally dosed including her Eliquis dose which was reduced to 2.5 mg twice daily. She should continue to have her kidney function monitored in the outpatient setting. She had mild hyponatremia and hypomagnesemia. Her magnesium was repleted and
her sodium levels were monitored and remained stable.
She developed a brief episode of A-fib with RVR during which she remained asymptomatic. Her heart rate was easily controlled after resuming her home dose of metoprolol tartrate. She converted spontaneously to normal sinus rhythm. She was
evaluated by cardiology. Echocardiogram showed normal cardiac structure and function. She should continue on her home dose of metoprolol tartrate and follow-up closely with her therapist occupational. She has reported history of heart failure dating back
to her 30s however details of this are unclear and she has no current evidence of active heart failure. Nifedipine was added to her medication regimen for better blood pressure control. She will need to follow-up with her primary care physician
for ongoing blood pressure monitoring and dosage adjustments as needed.
She was evaluated by neurology for some numbness in her right arm following right humeral fracture prior to this admission. No acute interventions warranted. She should continue to keep her arm immobilized in a sling. She will need outpatient
follow-up with orthopedics. No surgical intervention was warranted for this fracture per report from prior admission at [facility].
At time of hospital discharge she was medically stable. She will be discharged to SNF to continue PT/OT. She should follow-up closely with her PCP, therapist occupational, and orthopedist.
Referrals:
Son Tovar MD [Family Provider] -
Prescriptions:
New
Eliquis 2.5 mg Tablet
2.5 mg PO BID 30 Days Qty: 60 0RF
lorazepam 0.5 mg Tablet
0.5 mg PO DAILY@1999 30 Days Qty: 30 0RF
aspirin 81 mg Tablet,Chewable
81 mg PO DAILY 30 Days Qty: 30 0RF
nifedipine 60 mg Tablet Extended Release
60 mg PO DAILY 30 Days Qty: 30 0RF
Continued
atorvastatin 80 mg tablet
80 mg PO HS
sennosides [Senokot] 8.6 mg Tablet
17.2 mg PO HS
acetaminophen [Tylenol] 325 mg Tablet
650 mg PO Q6H PRN (Reason: temp>100.4, mild pain)
polyethylene glycol 3350 [Miralax] 17 gram Powder In Packet
17 g PO DAILY
meclizine 12.5 mg tablet
12.5 mg PO DAILYPRN PRN (Reason: dizzyness)
tramadol 50 mg tablet
50 mg PO Q6HPRN PRN (Reason: severe pain)
levothyroxine 88 mcg tablet
88 mcg PO DAILY
magnesium hydroxide [Milk of Magnesia] 400 mg/5 mL Suspension
2,400 mg PO HSPRN PRN (Reason: no BM x 3 days)
bisacodyl 10 mg Suppository
10 mg AK DAILY PRN (Reason: constipation, if MOM ineffective)
clotrimazole-betamethasone 1-0.05 % Cream
1 applic TOPICAL BID
metoprolol tartrate 50 mg tablet
50 mg PO BID
montelukast 10 mg tablet
10 mg PO DAILY
cholecalciferol (vitamin D3) 125 mcg (5,000 unit) capsule
125 mcg PO DAILY
insulin lispro 100 unit/mL insulin pen
0 - 10 unit SC .SLIDING SCALE AC
sodium chloride 0.65 % Aerosol,[place]uney
2 spray INTRANASAL Q2H PRN (Reason: congestion)
melatonin 5 mg Tablet
5 mg PO HS
dexlansoprazole 30 mg capsule,biphase delayed releas
60 mg PO DAILY
Changed
albuterol sulfate 2.5 mg /3 mL (0.083 %) Solution For Nebulization
2.5 mg INHALATION Q6H PRN (Reason: wheezing) Qty: 0 0RF
insulin lispro 100 unit/mL insulin pen
7 unit SC AC Qty: 0 0RF
insulin glargine [Lantus Solostar U-100 Insulin] 100 unit/mL (3 mL) insulin pen
25 unit SC HS Qty: 0 0RF
Discontinued
buspirone 5 mg tablet
5 mg PO DAILY
albuterol sulfate 2.5 mg /3 mL (0.083 %) Solution For Nebulization
2.5 mg INHALATION QID
levetiracetam 250 mg tablet
250 mg PO BID
Brilinta 90 mg tablet
90 mg PO BID
Eliquis 5 mg tablet
See Rx Instructions .ROUTE .COMPLEX
Rx Instructions:
For PE: 10 mg orally po bid 06/22-06/29/24 then 5 mg po bid 06/29 and beyond
Discharge Orders:
Discharge Patient (As Directed); Ordered 07/04/24
Ordered By: Liu Miller
Discharge Date and Time
Print Language: POLISH
--- NOTE | 2024-07-04 11:53 | CM ---
Chart reviewed for d/c planning. Pt is medically stable per hospitalist.
Therapy continues to recommend skilled rehab. Pt plan is to return to [facility] to cont. rehab
CM confirmed w/ [facility] pt can return today
CM updated pt's daughter, Annel, who is agreeable to d/c and informed that pt will transport via ambulance. CM transferred phone call to pt's room so Annel can inform pt as pt needs assistance w/ translation.
IMM reviewed, copy on chart
[facility]
Report: [phone]

Plan: Return to [facility] today via ambulance
--- NOTE | 2024-07-04 12:34 | PN.CDI ---
CDI
- -
CDI:
Physician Documentation Request
Admit Date: 06/25/24 11:41
Dear Doctor Richard Patiño,
Clinical Indicators:
Patient admitted with acute laryngitis.
07/02 RN Skin/Wound assessments: Right Heel Deep Tissue Injury, POA
Treatment: Adaptic, ABD pad and mercedes, change q other day and prn soilage; Waffle air boots
D/C Summary/Instructions: Wound care center follow up
Physician documentation of the type and location of wounds is required for compliant documentation. Based on the above clinical findings and your assessment, please provide the following in your progress note:
1. Location of the ulcer/wound, including laterality.
2. Type (etiology) of ulcer/wound:
- Pressure (decubitus) ulcer
- Other, please specify
3. If a pressure ulcer, please also include the stage* of the ulcer:
- Stage 1 - Skin intact, non-blanchable redness
- Stage 2 - Partial thickness loss of dermis, includes intact or open blister
- Stage 3 - Full thickness tissue not including bone, tendon or muscle
- Stage 4 - Full thickness tissue loss, including exposed bone, tendon or muscle
- Unstageable - Full thickness loss in which the base of the ulcer is covered by slough (yellow, paredes, quiroga, green or brown) and/or eschar (paredes, brown or black) in the wound bed.
- Unable to determine
Use of terms such as suspected, likely, concern for, or probable (associated with a specific diagnosis that is being evaluated, monitored, or treated as if it exists) are acceptable and can be coded in the inpatient setting, when documented at the
time of discharge.
Thank you,
Tracie Rayo RN BSN
CDI Specialist
available via tiger text
Please use your independent medical judgment in providing your response.
*Source: National Pressure Ulcer Advisory Panel (NPUAP)
[2024-07-04] MEDS: NOVOLOG FLEXPEN-HIGH RESISTANCE 7 UNITS SC (12:40)
--- NOTE | 2024-07-04 14:42 | VATNOTE ---
Midline D/C'd prior to pt leaving. TCL retrieved was 14 cm. Pressure dressing applied.
[2024-07-04 15:25] VITALS: BP 145/60
== END 2024-07-04 15:25 | DRG 152 ==
LOC: 4 WEST ACU 11:41
PROVIDERS: Emergency Medicine; Physician Assistant Medical; ADMITTING PHYSICIAN Internal Medicine; ATTENDING PHYSICIAN Internal Medicine; CONSULT PHYSICIAN Internal Medicine Cardiovascular Disease; CONSULT PHYSICIAN Internal Medicine Critical Care Medicine; CONSULT PHYSICIAN Otolaryngology; CONSULT PHYSICIAN Psychiatry & Neurology Neurology; EMERGENCY PHYSICIAN Emergency Medicine; FAMILY PHYSICIAN Internal Medicine; OTHER PHYSICIAN Internal Medicine; OTHER PHYSICIAN Internal Medicine Infectious Disease
PROC: 0CJS8ZZ Inspection of Larynx, Via Natural or Artificial Opening Endoscopic (ICD-10-PCS; 2024-06-25)
DX: J04.0 Acute laryngitis (principal); N17.0 Acute kidney failure with tubular necrosis; D62 Acute posthemorrhagic anemia; E87.1 Hypo-osmolality and hyponatremia; J98.11 Atelectasis; E83.42 Hypomagnesemia; I48.91 Unspecified atrial fibrillation; I50.9 Heart failure, unspecified; I11.0 Hypertensive heart disease with heart failure; E03.9 Hypothyroidism, unspecified; M10.9 Gout, unspecified; Z86.711 Personal history of pulmonary embolism; E78.00 Pure hypercholesterolemia, unspecified; E11.9 Type 2 diabetes mellitus without complications; Z87.891 Personal history of nicotine dependence; Z79.899 Other long term (current) drug therapy; Z79.4 Long term (current) use of insulin; Z79.01 Long term (current) use of anticoagulants; Z79.02 Long term (current) use of antithrombotics/antiplatelets; Z79.890 Hormone replacement therapy; Z88.5 Allergy status to narcotic agent; Z91.041 Radiographic dye allergy status; Z95.5 Presence of coronary angioplasty implant and graft; E66.01 Morbid (severe) obesity due to excess calories; Z68.37 Body mass index [BMI] 37.0-37.9, adult; K59.00 Constipation, unspecified; F41.9 Anxiety disorder, unspecified; K21.9 Gastro-esophageal reflux disease without esophagitis; G40.909 Epilepsy, unspecified, not intractable, without status epilepticus; I16.0 Hypertensive urgency; Z11.52 Encounter for screening for COVID-19; S42.294D Other nondisplaced fracture of upper end of right humerus, subsequent encounter for fracture with routine healing; D53.9 Nutritional anemia, unspecified; G89.29 Other chronic pain; I25.10 Atherosclerotic heart disease of native coronary artery without angina pectoris; I25.2 Old myocardial infarction; I45.10 Unspecified right bundle-branch block; R13.10 Dysphagia, unspecified; L89.612 Pressure ulcer of right heel, stage 2; W19.XXXD Unspecified fall, subsequent encounter; T17.390A Other foreign object in larynx causing asphyxiation, initial encounter; W44.F9XA Other object of natural or organic material, entering into or through a natural orifice, initial encounter
CPT/HCPCS: 70490; 71045; 71250; 73030; 74230; 76775; 80048; 80053; 80202; 81003; 81015; 81099; 82570; 82962; 83036; 83735; 83880; 84100; 84300; 84484; 85025; 85027; 87040; 87077; 87086; 87186; 87449; 87502; 87641; 87811; 87899; 92610; 92611; 93005; 93306; 94640; 96365; 96375; 97110; 97116; 97163; 97167; 97530; 97535; 99285